=== PATIENT | female | born 2000 | race Caucasian/White ===

== ENCOUNTER 2020-07-02 15:24 | Inpatient (IN) | payer MEDICAID, SELFPAY ==
[2020-07-02 16:02] VITALS: BP 133/68; PULSE 88; RESP 16; TEMP 36.5; O2SAT 99; BMI 32.4
--- NOTE | 2020-07-02 17:11 | ED.DIZZY ---
HPI - Dizziness General Chief Complaint: Dizziness Stated Complaint: eye is blurry Time Seen by Provider: 07/02/20 17:53 Source: patient Mode of arrival: ambulatory Limitations: no limitations History of Present Illness HPI Narrative: 20-year-old female with no significant past medical history presents with 3 days of dizziness, double vision and loss of balance. she feels like the double vision is only in the left eye and was preceded by 2 months of left-sided ear pain. She does not have any family history of MS or brain malignancies, and denies chest pain and pressure, palpitations, shortness breath, abdominal pain, abdominal distention, Nausea, vomiting, diarrhea, constipation, dysuria, hematuria, fevers, chills, trauma, drug use or . MD elicited complaint: dizziness and difficulty walking ( loss of balance) Onset (ago): day(s) ( 3 days) Timing: gradual onset Severity: severe Description: sense of movement, off-balance and ongoing History of similar symptoms: No Relieving factors: nothing Associated symptoms: other Associated neuro symptoms: diplopia and vision changes Stroke scale total: 0 Related Data Allergies Allergy/AdvReac Type Severity Reaction Status Date / Time amoxicillin [AMOXICILLIN] Allergy Severe FACIAL AND Unverified 04/30/20 18:55 THROAT SWELLING Penicillins [PENICILLINS] Allergy Unknown SWELLING Unverified 04/30/20 18:55 Review of Systems Review of Systems: Constitutional: No Weight loss, No Fever, No Chills, No Night Sweats, No Fatigue, No Malaise ENT/Mouth: No Hearing loss, No Ear Pain, No Nasal Congestion, No Sinus Pain, No Hoarseness, No sore throat, No Rhinorrhea, No Swallowing Difficulty Eyes: No Eye Pain, No Swelling, No Redness, No Foreign Body, No Discharge, positive Vision Changes Cardiovascular: No Chest Pain, No SOB, No Dyspnea on Exertion, No Orthopnea, No Edema, No Palpitations Respiratory: No Cough, No Sputum, No Wheezing, No Smoke Exposure, No Dyspnea Gastrointestinal: No Nausea, No Vomiting, No Diarrhea, No Constipation, No abdominal Pain, No Hematochezia, No Melena Genitourinary: no irregular bleeding, No Dysuria, No Urinary Frequency, No Hematuria, No Urinary Incontinence, No Urgency, No Flank Pain, No Urinary Flow Changes, No Hesitancy Musculoskeletal: No joint pain, No Myalgias, No Joint Swelling Skin: No Skin Lesions, No rash Neuro: No Weakness, No Numbness, No Paresthesias, No Loss of Consciousness, No Dizziness, No Headache Psych: No Anxiety/Panic, No Depression, No SI/HI/AH/VH, No Social Issues Heme/Lymph: No Bruising, No Bleeding,No Lymphadenopathy Endocrine: No Polyuria, No Polydipsia, No Temperature Intolerance Yes all other systems are reviewed and are negative [facility] Past Medical History Attestation statement: The following information was validated with the patient. Medical History Anxiety Social History Social History Alcohol intake: current Alcohol intake frequency: holidays/special occasions only Smoking Status: Never smoker Advance Directives: No Advance Directives Information Provided: Yes Physical Exam Vital Signs: Vital Signs: Last Vital Signs Temp 98.1 F 07/02/20 20:00 Pulse 90 07/02/20 20:00 Resp 19 07/02/20 20:00 BP 136/72 07/02/20 20:00 Pulse Ox 99 07/02/20 20:00 Body Mass Index 32.4 Appearance: Alert. Oriented X3. No acute distress. Head: Normal external exam. Normocephalic. Atraumatic. No Zepeda signs noted. No raccoon eyes noted Eyes: PERRLA. EOMI. Conjunctiva and sclera normal. Eyelids normal. ENT: TM's Normal. Pharynx normal. Uvula midline. Moist mucous membranes. No trismus noted. No drooling noted. No muffled voice noted. Neck: Normal inspection. Neck supple. No adenopathy. Thyroid Normal. No meningeal signs. No neck mass noted. CVS: Normal heart rate and rhythm. Heart sound normal. No murmurs noted. Pulses equal to all extremities. Respiratory: No respiratory distress. Painless inspiration. Breath sounds normal. No wheezes/rales/rhonchi noted. Chest nontender. No accessory muscle usage noted or decreased air movement noted. Abdomen: Soft and nontender. Bowel sounds normal in all 4 quadrants. No distention noted. No organomegaly noted. No visible injury noted. Back: No CVA tenderness. Full range of motion noted. Skin: Skin warm and dry. Normal skin color. Normal skin turgor. No rashes/lesions/lacerations noted. Extremities: No lower extremity edema. Extremities exhibit normal range of motion. Extremities nontender. Neuro: cranial nerves 2-12 intact, no focal neural deficits, strength 5/5 to all extremities, No motor deficit. No sensory deficit. Reflexes normal. Course Course Course Narrative: 20-year-old female presents with 3 days of dizziness, double vision, and loss of balance. after discussing the case with Dr. Reed, based on her physical exam and presenting symptoms We will order CT scan and MRI of the head to rule out MS, possible 6th nerve palsy, CBC, Chem 7, troponin, EKG and urinalysis. Extraocular movements are within normal limits, no pain on eye movement. She does have double vision with both eyes open to the left lateral rectus the 3 o'clock position and inferior rectus and superior oblique position the 6 o'clock position, and double vision when staring directly at fingers when fingers are at eye level. All other exams are normal, she does not have double vision when the left eye is closed, does not have double vision when the right eye is closed. Funduscopic exam is normal. tympanic membranes are bilaterally intact small amount of cerumen buildup to the left external canal without indication of blockage. Cerebellar exam [id number] negative, negative Romberg. At 8:13 p.m. CBC, Chem 7, urinalysis, urine , and tox screen are all negative for acute findings or abnormal values. CT scan of the head is negative for acute findings. at 10:11 p.m. MRI results showed demyelinating disease. Discussed findings with Dr. Reed. he recommends that I discussed this case with Neurology. Call out to Neurology on-call at this time. Discussion with hospitalist at 10:39 p.m., plan of care is to admit with neurology follow-up in the morning. Patient verbalized understanding of and agrees to plan of care. Detailed discussion with patient regarding MRI findings, and plan for admission, this was also discussed with patient's mother. Emotional support provided to both patient and parent. Consultations Consultation #1: Dr Armenta Time: 22:29 Consultation #2: byron hogue Time: 22:39 MDM - Dizziness MDM Narrative Medical decision making narrative: multiple sclerosis, 6th nerve palsy Differential Diagnosis Differential diagnosis: Likely cerebrovascular accident, acute vestibular neuronitis and transient cerebral ischemia Medical Records Attestation: I reviewed the patient's medical records. Lab Data Attestation: I reviewed the patient's lab results. Result diagrams: 07/02/20 17:37 07/02/20 17:37 Labs: Lab Results 07/02/20 07/02/20 07/02/20 Range/Units 17:32 17:37 17:37 WBC 8.5 (4.8-10.8) X10*3/uL RBC 4.22 (4.20-5.50) X10*6/uL Hgb 13.2 (12.0-16.0) g/dl Hct 38.7 (37-47) % MCV 91.7 (80-98) fL MCH 31.3 (27.0-33.0) pg MCHC 34.1 (31.0-35.0) g/dl RDW 12.3 (11.0-16.0) % Plt Count 279 (160-400) X10*3/uL MPV 9.6 (9.4-12.3) fL Immature Gran % (Auto) 0.1 (0.0-0.4) % Neut % (Auto) 74.3 H (45-73) % Lymph % (Auto) 20.3 (20-40) % [place] % (Auto) 4.3 (2-11) % Eos % (Auto) 0.4 (0-4) % Baso % (Auto) 0.6 (0-2) % Lymph # (Auto) 1.7 (1.2-4.9) X10*3/uL [place] # (Auto) 0.4 (0.1-1.2) X10*3/uL Eos # (Auto) 0.0 (0.0-0.4) X10*3/uL Baso # (Auto) 0.1 (0.0-0.2) X10*3/uL Abs Immat Gran (auto) 0.01 (0.00-0.03) X10*3/uL Absolute Neuts (auto) 6.3 (2.0-8.3) X10*3/uL Absolute Nucleated RBC 0.000 (0.0-0.012) X10*3/uL Nucleated RBC % (auto) 0.0 (0.0-0.2) /100WBC PT 12.2 (10.8-13.0) SEC INR 1.0 (0.9-1.1) APTT 34.9 (24.1-38.0) SEC Sodium (135-145) mmol/L Potassium (3.3-5.1) mmol/l Chloride (96-108) mmol/L Carbon Dioxide (22-29) mmol/L Anion Gap (12-20) BUN (9-16) mg/dL Creatinine (0.5-1.4) mg/dL Estim Creat Clear Calc Estimated GFR POC Glucose 93 (60-115) mg/dL Random Glucose (60-115) mg/dL Calcium (8.4-10.2) mg/dL Magnesium (1.6-2.6) mg/dL Urine Color Urine Appearance Urine pH (5.0-8.0) Ur Specific [place] (1.005-1.025) Urine Protein (NEG-TRACE) MG/DL Urine Glucose (UA) (NEG) MG/DL Urine Ketones (NEG) MG/DL Urine Blood (NEG) Urine Nitrite (NEG) Ur Leukocyte Esterase (NEG) Urine Test (NEGATIVE) Urine Opiates Screen (Not Detect) Ur Barbiturates Screen (Not Detect) Ur Phencyclidine Scrn (Not Detect) Ur Amphetamines Screen (Not Detect) U Benzodiazepines Scrn (Not Detect) Urine Cocaine Screen (Not Detect) U Marijuana (THC) Screen (Not Detect) COVID-19 (MARANDA) (Negative) COVID-19 Clin Com 07/02/20 07/02/20 07/02/20 Range/Units 17:37 17:37 17:37 WBC (4.8-10.8) X10*3/uL RBC (4.20-5.50) X10*6/uL Hgb (12.0-16.0) g/dl Hct (37-47) % MCV (80-98) fL MCH (27.0-33.0) pg MCHC (31.0-35.0) g/dl RDW (11.0-16.0) % Plt Count (160-400) X10*3/uL MPV (9.4-12.3) fL Immature Gran % (Auto) (0.0-0.4) % Neut % (Auto) (45-73) % Lymph % (Auto) (20-40) % [place] % (Auto) (2-11) % Eos % (Auto) (0-4) % Baso % (Auto) (0-2) % Lymph # (Auto) (1.2-4.9) X10*3/uL [place] # (Auto) (0.1-1.2) X10*3/uL Eos # (Auto) (0.0-0.4) X10*3/uL Baso # (Auto) (0.0-0.2) X10*3/uL Abs Immat Gran (auto) (0.00-0.03) X10*3/uL Absolute Neuts (auto) (2.0-8.3) X10*3/uL Absolute Nucleated RBC (0.0-0.012) X10*3/uL Nucleated RBC % (auto) (0.0-0.2) /100WBC PT (10.8-13.0) SEC INR (0.9-1.1) APTT (24.1-38.0) SEC Sodium 139 (135-145) mmol/L Potassium 4.0 (3.3-5.1) mmol/l Chloride 103 (96-108) mmol/L Carbon Dioxide 24 (22-29) mmol/L Anion Gap 16 (12-20) BUN 12 (9-16) mg/dL Creatinine 0.82 (0.5-1.4) mg/dL Estim Creat Clear Calc 109.7 Estimated GFR > 60 POC Glucose (60-115) mg/dL Random Glucose 91 (60-115) mg/dL Calcium 9.3 (8.4-10.2) mg/dL Magnesium 2.0 (1.6-2.6) mg/dL Urine Color YELLOW Urine Appearance CLEAR Urine pH 6.0 (5.0-8.0) Ur Specific [place] 1.025 (1.005-1.025) Urine Protein NEG (NEG-TRACE) MG/DL Urine Glucose (UA) NEG (NEG) MG/DL Urine Ketones NEG (NEG) MG/DL Urine Blood NEG (NEG) Urine Nitrite NEG (NEG) Ur Leukocyte Esterase NEG (NEG) Urine Test NEGATIVE (NEGATIVE) Urine Opiates Screen Not Detected (Not Detect) Ur Barbiturates Screen Not Detected (Not Detect) Ur Phencyclidine Scrn Not Detected (Not Detect) Ur Amphetamines Screen Not Detected (Not Detect) U Benzodiazepines Scrn Not Detected (Not Detect) Urine Cocaine Screen Not Detected (Not Detect) U Marijuana (THC) Screen Not Detected (Not Detect) COVID-19 (MARANDA) (Negative) COVID-19 Clin Com 07/02/20 Range/Units 23:04 WBC (4.8-10.8) X10*3/uL RBC (4.20-5.50) X10*6/uL Hgb (12.0-16.0) g/dl Hct (37-47) % MCV (80-98) fL MCH (27.0-33.0) pg MCHC (31.0-35.0) g/dl RDW (11.0-16.0) % Plt Count (160-400) X10*3/uL MPV (9.4-12.3) fL Immature Gran % (Auto) (0.0-0.4) % Neut % (Auto) (45-73) % Lymph % (Auto) (20-40) % [place] % (Auto) (2-11) % Eos % (Auto) (0-4) % Baso % (Auto) (0-2) % Lymph # (Auto) (1.2-4.9) X10*3/uL [place] # (Auto) (0.1-1.2) X10*3/uL Eos # (Auto) (0.0-0.4) X10*3/uL Baso # (Auto) (0.0-0.2) X10*3/uL Abs Immat Gran (auto) (0.00-0.03) X10*3/uL Absolute Neuts (auto) (2.0-8.3) X10*3/uL Absolute Nucleated RBC (0.0-0.012) X10*3/uL Nucleated RBC % (auto) (0.0-0.2) /100WBC PT (10.8-13.0) SEC INR (0.9-1.1) APTT (24.1-38.0) SEC Sodium (135-145) mmol/L Potassium (3.3-5.1) mmol/l Chloride (96-108) mmol/L Carbon Dioxide (22-29) mmol/L Anion Gap (12-20) BUN (9-16) mg/dL Creatinine (0.5-1.4) mg/dL Estim Creat Clear Calc Estimated GFR POC Glucose (60-115) mg/dL Random Glucose (60-115) mg/dL Calcium (8.4-10.2) mg/dL Magnesium (1.6-2.6) mg/dL Urine Color Urine Appearance Urine pH (5.0-8.0) Ur Specific [place] (1.005-1.025) Urine Protein (NEG-TRACE) MG/DL Urine Glucose (UA) (NEG) MG/DL Urine Ketones (NEG) MG/DL Urine Blood (NEG) Urine Nitrite (NEG) Ur Leukocyte Esterase (NEG) Urine Test (NEGATIVE) Urine Opiates Screen (Not Detect) Ur Barbiturates Screen (Not Detect) Ur Phencyclidine Scrn (Not Detect) Ur Amphetamines Screen (Not Detect) U Benzodiazepines Scrn (Not Detect) Urine Cocaine Screen (Not Detect) U Marijuana (THC) Screen (Not Detect) COVID-19 (MARANDA) Negative (Negative) COVID-19 Clin Com See Note Imaging Data CT scan - head: Attestation: I personally reviewed and interpreted this imaging study as follows: Radiologist's impression: EXAMINATION: CT HEAD WITH CONTRAST CLINICAL INFORMATION: Double vision. COMPARISON: January 05, 2020. TECHNIQUE: Contiguous helical images of the brain were obtained following the administration of IV contrast. Multiplanar reconstructions were performed. CONTRAST: 85 cc of Omnipaque 350 were administered without incident. FINDINGS: There are no pathologic extra-axial fluid collections. The lateral, third, fourth ventricles are nondilated and concordant with the appearance of the sulci. There is no evidence for acute intraparenchymal hemorrhage or infarct. There is neither mass nor mass effect. No enhancing lesions are identified. The visualized vasculature is unremarkable. There is no shift of midline structures. The paranasal sinuses and mastoid air cells are clear. There are no osseous lesions. CT/CT head/brain w con IMPRESSION: No evidence for acute intracranial injury. Automated exposure control (Care Dose) Adjustment of the mA and/or kv according to patient size (this includes techniques or standardized protocols for targeted exams where dose is matched to indication / reason for exam; i.e. extremities or head). MRI - head: Attestation: I personally reviewed and interpreted this imaging study as follows: Radiologist's impression: MR BRAIN WITHOUT AND WITH CONTRAST CLINICAL INFORMATION: Double vision. COMPARISON: Head CT performed earlier the same day. TECHNIQUE: Multiplanar, multisequence MRI of the brain was obtained before and after the intravenous administration of 8.5 mL Gadavist. FINDINGS: Multiple T2 signal hyperintense lesions within the supratentorial periventricular white matter bilaterally and likely the dorsal left dorina with the pattern most suggestive of the sequela of demyelinating disease. A small focus of enhancement within the right peritrigonal white matter on image 12 of series 12 suspicious for a small focus of active demyelination. There is no hydrocephalus, extra-axial surface collection, or herniation. The major flow voids at the skull base are preserved. There is no acute infarct on diffusion-weighted imaging. There is no intracranial hemorrhage on the gradient recalled echo acquisition. The midline structures are normal. The cerebellar tonsils are normally positioned. The cerebellum and brainstem are normal. The craniocervical junction is normal. Osseous marrow signal intensity is homogenous. The visualized soft tissues are unremarkable. MR/MR head/brain wo/w con IMPRESSION: Multiple T2 signal hyperintense lesions within the supratentorial periventricular white matter bilaterally and likely the dorsal left dorina with the pattern most suggestive of the sequela of demyelinating disease. A small focus of enhancement within the right peritrigonal white matter on image 12 of series 12 is suspicious for a small focus of active demyelination. ECG Data Attestation: I personally reviewed and interpreted this ECG as follows: ECG interpretation date: 07/02/20 ECG interpretation time: 17:45 Interpretation: Vent. Rate : 078 BPM Atrial Rate : 078 BPM P-R Int : 138 ms QRS Dur : 074 ms QT Int : 380 ms P-R-T Axes : 056 045 026 degrees QTc Int : 433 ms Normal sinus rhythm with sinus arrhythmia Normal ECG When compared with ECG of 05-JAN-2020 14:35, No significant change was found Critical Care Time Critical Care Time Critical Care Time: Yes Total Critical Care Time: 45 Attestation: I have personally provided critical care time exclusive of time spent on separately billable procedures. Time includes review of laboratory data, radiology results, discussion with consultants, and monitoring for potential decompensation. Interventions were performed as documented. Discharge Plan Discharge Clinical Impression: 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 Patient Disposition: Admitted As Inpatient Interventions: Admission Worksheet (ED) Last Done: 07/03/20 01:08
--- NOTE | 2020-07-02 17:21 | CT_ITS ---
EXAMINATION: CT HEAD WITH CONTRAST CLINICAL INFORMATION: Double vision. COMPARISON: January 05, 2020. TECHNIQUE: Contiguous helical images of the brain were obtained following the administration of IV contrast. Multiplanar reconstructions were performed. CONTRAST: 85 cc of Omnipaque 350 were administered without incident. FINDINGS: There are no pathologic extra-axial fluid collections. The lateral, third, fourth ventricles are nondilated and concordant with the appearance of the sulci. There is no evidence for acute intraparenchymal hemorrhage or infarct. There is neither mass nor mass effect. No enhancing lesions are identified. The visualized vasculature is unremarkable. There is no shift of midline structures. The paranasal sinuses and mastoid air cells are clear. There are no osseous lesions. CT/CT head/brain w con IMPRESSION: No evidence for acute intracranial injury. Automated exposure control (Care Dose) Adjustment of the mA and/or kv according to patient size (this includes techniques or standardized protocols for targeted exams where dose is matched to indication / reason for exam; i.e. extremities or head).
[2020-07-02 17:26] VITALS: BP 128/70; PULSE 68; RESP 19; TEMP 36.7; O2SAT 100
--- NOTE | 2020-07-02 17:30 | ECG_ITS ---
Test Reason : BASELINE Blood Pressure : / mmHG Vent. Rate : 078 BPM Atrial Rate : 078 BPM P-R Int : 138 ms QRS Dur : 074 ms QT Int : 380 ms P-R-T Axes : 056 045 026 degrees QTc Int : 433 ms Normal sinus rhythm with sinus arrhythmia Normal ECG When compared with ECG of 05-JAN-2020 14:35, No significant change was found Referred By: Winnie Cuellar Electronically Signed By:HARMAN OLEA MD
[2020-07-02 17:43] LABS: Glucose, Whole Blood 93 mg/dL (60-115)
[2020-07-02 17:44] LABS: MANUAL DIFF FLAG NO
[2020-07-02 17:45] LABS: Basophils Absolute Auto 0.1 X10*3/uL (0.0-0.2); Basophils Percent Auto 0.6 % (0-2); Eosinophils Percent Auto 0.4 % (0-4); Hematocrit 38.7 % (37-47); Hemoglobin 13.2 g/dl (12.0-16.0); Imm Gran Abs Auto 0.01 X10*3/uL (0.00-0.03); Imm Gran Pct Auto 0.1 % (0.0-0.4); Lymphocytes Absolute Auto 1.7 X10*3/uL (1.2-4.9); Lymphocytes Percent Auto 20.3 % (20-40); Mean Corpuscular HGB Conc 34.1 g/dl (31.0-35.0); Mean Corpuscular Hemoglobin 31.3 pg (27.0-33.0); Mean Corpuscular Volume 91.7 fL (80-98); Mean Platelet Volume 9.6 fL (9.4-12.3); Monocytes Absolute Auto 0.4 X10*3/uL (0.1-1.2); Monocytes Percent Auto 4.3 % (2-11); Neutrophils Absolute Auto 6.3 X10*3/uL (2.0-8.3); Neutrophils Percent Auto 74.3 % (45-73); Platelet Count 279 X10*3/uL (160-400); Red Blood Count 4.22 X10*6/uL (4.20-5.50); Red Cell Distribution Width 12.3 % (11.0-16.0); White Blood Count 8.5 X10*3/uL (4.8-10.8)
[2020-07-02 17:56] LABS: Glucose Urine UA NEG (NEG); Leukocyte Esterase Urine NEG (NEG); Nitrite Urine NEG (NEG); Specific Gravity - Urine 1.025 (1.005-1.025); Urine Blood NEG (NEG); Urine Ketones NEG (NEG); Urine Protein NEG (NEG-TRACE)
[2020-07-02 17:58] LABS: Appearance Urine CLEAR; Color Urine YELLOW; UPreg QC Valid YES; Urine Pregnancy NEGATIVE (NEGATIVE)
[2020-07-02 18:04] LABS: Anion Gap 16 (12-20); Blood Urea Nitrogen 12 mg/dL (9-16); Calcium 9.3 mg/dL (8.4-10.2); Carbon Dioxide 24 mmol/L (22-29); Chloride 103 mmol/L (96-108); Creatinine Clr Calc Pharmacy 109.7; Estimated Glomerular Filt Rate > 60; Glucose Random 91 mg/dL (60-115); Sodium 139 mmol/L (135-145)
[2020-07-02 18:07] LABS: Prothrombin Time 12.2 SEC (10.8-13.0)
[2020-07-02 18:09] LABS: Partial Thromboplastin Time 34.9 SEC (24.1-38.0)
[2020-07-02 18:10] LABS: Amphetamine Screen Urine Not Detected (Not Detect); Barbiturates, Urine Not Detected (Not Detect); Benzodiazepines Screen Urine Not Detected (Not Detect); Cannabinoid Screen Urine Not Detected (Not Detect); Cocaine Screen Urine Not Detected (Not Detect); Opiate Screen Urine Not Detected (Not Detect); Phencyclidine Screen Urine Not Detected (Not Detect)
[2020-07-02] MEDS: iohexoL 350 MG/ML 100 ML INFUS..BTL IV (18:37)
--- NOTE | 2020-07-02 19:47 | MR_ITS ---
MR BRAIN WITHOUT AND WITH CONTRAST CLINICAL INFORMATION: Double vision. COMPARISON: Head CT performed earlier the same day. TECHNIQUE: Multiplanar, multisequence MRI of the brain was obtained before and after the intravenous administration of 8.5 mL Gadavist. FINDINGS: Multiple T2 signal hyperintense lesions within the supratentorial periventricular white matter bilaterally and likely the dorsal left dorina with the pattern most suggestive of the sequela of demyelinating disease. A small focus of enhancement within the right peritrigonal white matter on image 12 of series 12 suspicious for a small focus of active demyelination. There is no hydrocephalus, extra-axial surface collection, or herniation. The major flow voids at the skull base are preserved. There is no acute infarct on diffusion-weighted imaging. There is no intracranial hemorrhage on the gradient recalled echo acquisition. The midline structures are normal. The cerebellar tonsils are normally positioned. The cerebellum and brainstem are normal. The craniocervical junction is normal. Osseous marrow signal intensity is homogenous. The visualized soft tissues are unremarkable. MR/MR head/brain wo/w con IMPRESSION: Multiple T2 signal hyperintense lesions within the supratentorial periventricular white matter bilaterally and likely the dorsal left dorina with the pattern most suggestive of the sequela of demyelinating disease. A small focus of enhancement within the right peritrigonal white matter on image 12 of series 12 is suspicious for a small focus of active demyelination.
[2020-07-02 20:00] VITALS: BP 136/72; PULSE 90; RESP 19; TEMP 36.7; O2SAT 99
[2020-07-02 23:30] LABS: COVID-19 Test Negative (Negative)
[2020-07-03] VITALS (7 sets, daily range): BP systolic 106–137; BP diastolic 56–77; PULSE 83–100; RESP 18–19; TEMP 36–36.7; O2SAT 97–100; BMI 32.4
--- NOTE | 2020-07-03 00:43 | PM.IMHP ---
History of Present Illness Date of Service: 07/02/20 Chief Complaint: dizziness 20 y/o female with no pertinent PMHX who presented from home due to persistent dizziness per 2 days. Per history provided by the patient, since yesterday started with symptoms of malaise feeling dizzy and unable to see properly. Today went to see her PCP and was sent here for further evaluation. On presentation to the ED vitals were stable, bloodwork unremarkable, MRI positive several hyperintense lesions in the supretentorial periventricular area, left dorina and in the right side of peritrigonal area suggestive for demyelinating disease. Neurologist consulted per ED who recommended start with solumedrol 1g IV for new onset MS. Patient reports that about a week ago presented to the ED with symptoms of partial face numbness and numbness of the fingers of one arm but was told back then that it was anxiety as symptoms resolved. Patient was seen and examined at the bedside, laying down in bed in no acute distress. ROS as above otherwise negative. Physical exam positive for bilateral horizontal nistagmus. PMHX: none PSx: none Toxic habits: No hx of alcohol abuse, smoking or IVDA Review of Systems Eyes: Eyes: Reports diplopia ENT: Reports dizziness and Reports disequilibrium Neurologic: Reports dizziness and Reports disequilibrium PMFSH Medical History Anxiety Functional capacity: independent ambulation Family history: reviewed and not pertinent Social History Alcohol intake: current Alcohol intake frequency: holidays/special occasions only Smoking Status: Never smoker Advance Directives: No Advance Directives Information Provided: Yes Meds Allergies Allergy/AdvReac Type Severity Reaction Status Date / Time amoxicillin [AMOXICILLIN] Allergy Severe FACIAL AND Unverified 04/30/20 18:55 THROAT SWELLING Penicillins [PENICILLINS] Allergy Unknown SWELLING Unverified 04/30/20 18:55 Physical Exam Vital Signs and Narrative: Vital Signs: Last Vital Signs Temp 98.1 F 07/02/20 17:26 Pulse 68 07/02/20 17:26 Resp 19 07/02/20 17:26 BP 128/70 07/02/20 17:26 Pulse Ox 100 07/02/20 17:26 Body Mass Index 32.4 Const: General: cooperative, comfortable and no acute distress Orientation/consciousness: oriented to person, oriented to place and oriented to time HENMT: Head: Yes normal to inspection Eyes: Conjunctivae: conjunctivae normal Sclerae: sclerae normal Pupils: Equal, round and reactive pupils present EOM: Nystagmus present Neck: Yes normal visual inspection Chest: Chest palpation & inspection: normal inspection of the chest Resp: Effort & Inspection: normal respiratory effort Cardio: Jugular venous distension: no JVD Rate: regular rate Rhythm: regular rhythm Heart sounds: S1 normal heart sound present and S2 normal heart sound present GI: Inspection: Yes normal to inspection Skin: General skin exam: no rashes or lesions noted Neuro: General: oriented to person, oriented to place and oriented to time Cranial nerves: Yes Equal, round and reactive pupils present and Yes Nystagmus present Cognition (Neuro): normal cognition Motor exam (neuro): 5/5 motor strength present throughout Results Labs CBC and Chem 7: 07/02/20 17:37 07/02/20 17:37 Labs: Laboratory Results - last 24 hr 07/02/20 07/02/20 07/02/20 17:32 17:37 17:37 MCV 91.7 MCH 31.3 MCHC 34.1 RDW 12.3 Plt Count 279 MPV 9.6 Immature Gran % (Auto) 0.1 Neut % (Auto) 74.3 H Lymph % (Auto) 20.3 [place] % (Auto) 4.3 Eos % (Auto) 0.4 Baso % (Auto) 0.6 Lymph # (Auto) 1.7 [place] # (Auto) 0.4 Eos # (Auto) 0.0 Baso # (Auto) 0.1 Abs Immat Gran (auto) 0.01 Absolute Neuts (auto) 6.3 Absolute Nucleated RBC 0.000 Nucleated RBC % (auto) 0.0 PT 12.2 INR 1.0 APTT 34.9 Anion Gap Estim Creat Clear Calc Estimated GFR POC Glucose 93 Random Glucose Calcium Magnesium Urine Color Urine Appearance Urine pH Ur Specific [place] Urine Protein Urine Glucose (UA) Urine Ketones Urine Blood Urine Nitrite Ur Leukocyte Esterase Urine Test Urine Opiates Screen Ur Barbiturates Screen Ur Phencyclidine Scrn Ur Amphetamines Screen U Benzodiazepines Scrn Urine Cocaine Screen U Marijuana (THC) Screen COVID-19 (MARANDA) COVID-19 Clin Com 07/02/20 07/02/20 07/02/20 17:37 17:37 17:37 MCV MCH MCHC RDW Plt Count MPV Immature Gran % (Auto) Neut % (Auto) Lymph % (Auto) [place] % (Auto) Eos % (Auto) Baso % (Auto) Lymph # (Auto) [place] # (Auto) Eos # (Auto) Baso # (Auto) Abs Immat Gran (auto) Absolute Neuts (auto) Absolute Nucleated RBC Nucleated RBC % (auto) PT INR APTT Anion Gap 16 Estim Creat Clear Calc 109.7 Estimated GFR > 60 POC Glucose Random Glucose 91 Calcium 9.3 Magnesium 2.0 Urine Color YELLOW Urine Appearance CLEAR Urine pH 6.0 Ur Specific [place] 1.025 Urine Protein NEG Urine Glucose (UA) NEG Urine Ketones NEG Urine Blood NEG Urine Nitrite NEG Ur Leukocyte Esterase NEG Urine Test NEGATIVE Urine Opiates Screen Not Detected Ur Barbiturates Screen Not Detected Ur Phencyclidine Scrn Not Detected Ur Amphetamines Screen Not Detected U Benzodiazepines Scrn Not Detected Urine Cocaine Screen Not Detected U Marijuana (THC) Screen Not Detected COVID-19 (MARANDA) COVID-19 [email or web address] Com 07/02/20 23:04 MCV MCH MCHC RDW Plt Count MPV Immature Gran % (Auto) Neut % (Auto) Lymph % (Auto) [place] % (Auto) Eos % (Auto) Baso % (Auto) Lymph # (Auto) [place] # (Auto) Eos # (Auto) Baso # (Auto) Abs Immat Gran (auto) Absolute Neuts (auto) Absolute Nucleated RBC Nucleated RBC % (auto) PT INR APTT Anion Gap Estim Creat Clear Calc Estimated GFR POC Glucose Random Glucose Calcium Magnesium Urine Color Urine Appearance Urine pH Ur Specific [place] Urine Protein Urine Glucose (UA) Urine Ketones Urine Blood Urine Nitrite Ur Leukocyte Esterase Urine Test Urine Opiates Screen Ur Barbiturates Screen Ur Phencyclidine Scrn Ur Amphetamines Screen U Benzodiazepines Scrn Urine Cocaine Screen U Marijuana (THC) Screen COVID-19 (MARANDA) Negative COVID-19 [email or web address] Com See Note Imaging Radiologist's Impressions: Impressions Head CT 07/02/20 17:21 IMPRESSION: No evidence for acute intracranial injury. Automated exposure control (Care Dose) Adjustment of the mA and/or kv according to patient size (this includes techniques or standardized protocols for targeted exams where dose is matched to indication / reason for exam; i.e. extremities or head). Brain MRI 07/02/20 19:47 IMPRESSION: Multiple T2 signal hyperintense lesions within the supratentorial periventricular white matter bilaterally and likely the dorsal left dorina with the pattern most suggestive of the sequela of demyelinating disease. A small focus of enhancement within the right peritrigonal white matter on image 12 of series 12 is suspicious for a small focus of active demyelination. Assessment and Plan (1) Multiple sclerosis: Status: Acute multiple lesions identified in time and space on MRI Continue with 1g IV solumedrol for a total duration of 5 [facility] consult in the am
[2020-07-03] MEDS: Heparin Sodium,Porcine 5,000 UNIT/ML VIAL 5000 UNIT SUBCUT ×3 (02:45→18:07)
[2020-07-03] MEDS: LORazepam 2 MG/ML VIAL 0.5 MG IVPUSH (02:46)
[2020-07-03 06:15] LABS: Hematocrit 37.1 % (37-47); Hemoglobin 12.7 g/dl (12.0-16.0); Imm Gran Abs Auto 0.03 X10*3/uL (0.00-0.03); Imm Gran Pct Auto 0.3 % (0.0-0.4); Lymphocytes Absolute Auto 0.6 X10*3/uL (1.2-4.9); Lymphocytes Percent Auto 6.3 % (20-40); MANUAL DIFF FLAG SCAN; Mean Corpuscular HGB Conc 34.2 g/dl (31.0-35.0); Mean Corpuscular Hemoglobin 31.4 pg (27.0-33.0); Mean Corpuscular Volume 91.6 fL (80-98); Mean Platelet Volume 9.9 fL (9.4-12.3); Monocytes Percent Auto 0.2 % (2-11); Neutrophils Absolute Auto 8.6 X10*3/uL (2.0-8.3); Neutrophils Percent Auto 93.2 % (45-73); Platelet Count 271 X10*3/uL (160-400); Red Blood Count 4.05 X10*6/uL (4.20-5.50); Red Cell Distribution Width 12.1 % (11.0-16.0); SCAN SMEAR FLAG 1; White Blood Count 9.2 X10*3/uL (4.8-10.8)
[2020-07-03 06:41] LABS: Anion Gap 14 (12-20); Blood Urea Nitrogen 14 mg/dL (9-16); Calcium 9.1 mg/dL (8.4-10.2); Carbon Dioxide 23 mmol/L (22-29); Chloride 105 mmol/L (96-108); Creatinine Clr Calc Pharmacy 96.8; Estimated Glomerular Filt Rate > 60; Glucose Random 229 mg/dL (60-115); Potassium 4.6 mmol/l (3.3-5.1); Sodium 137 mmol/L (135-145)
[2020-07-03 07:23] LABS: SLIDE REVIEW VERIFIED
--- NOTE | 2020-07-03 09:10 | MHC.CM.PN ---
CM met with Patient. Patient lives in an apartment with her Fiance and she is functionally independent. Patient's goal is to return home and CM has initiated and will follow for dc planning.
[2020-07-03] MEDS: Ibuprofen 600 MG TABLET PO ×2 (09:49→18:05)
[2020-07-03] MEDS: 0.9 % Sodium Chloride Flush 3 ML SYRINGE IVFLUSH ×3 (09:50→23:04)
--- NOTE | 2020-07-03 14:56 | P.CNNE_ITS ---
History of Present Illness Data of Consult Service Date: 07/03/20 Primary Care Provider: Antelmo Wright MD HPI Reason for consult: Fatigue, double vision and unsteady gait for the last one week This is a generally healthy 20-year-old woman who had an episode of left facial numbness for a day about a month ago which resolved and had another similar episode for a couple of days about 10 days ago and came to the ER and was discharged with a diagnosis of anxiety as she has had problems with anxiety and dizziness in hyperventilation in the past. She now presents with feeling fatigued for one week along with unsteady gait and diplopia which is binocular. She feels her vision is blurred. She has no headache. In the emergency room she had an MRI of the brain with and without gadolinium which showed multiple periventricular as well as corpus callosum lesions and some deep white matter and subcortical smaller lesions consistent with multiple sclerosis in a single her right small peritrigonal area of enhancement suggesting a relatively recent plaque. There is also questionable area of abnormality in the dorina which might account for her balance and diplopia. She has no significant previous neurological symptoms prior to a month ago. She has had multiple Lyme tests in the last 6 months which have been negative. Review of Systems Eyes: Eyes: Reports no additional eye complaints ENT: Reports Normal hearing present, Reports dizziness and Reports disequilibrium Cardiovascular: Cardiovascular: Reports no additional cardiovascular complaints Respiratory: Respiratory: Reports no additional respiratory complaints Gastrointestinal: Gastrointestinal: Reports no additional gastrointestinal complaints Musculoskeletal: Musculoskeletal: Reports no additional musculoskeletal complaints Integumentary/Breasts: Skin/Breast: Reports system reviewed and no additional complaints, except as docu Neurologic: Reports Normal hearing present, Reports dizziness and Reports disequilibrium Psychiatric: Psychiatric: Reports as per HPI Endocrine: Endocrine: Reports no additional endocrine complaints Hematologic/Lymphatic: Hematologic/Lymphatic: Reports no additional hematologic/lymphatic complaints Allergic/Immunologic: Allergic/Immunologic: Reports no additional al lergic/immunologic complaints [facility] Past Medical History Medical History (Updated 07/03/20 @ 15:04 by Abigail Trimble MD) Anxiety Fracture of right lower leg Functional capacity: independent ambulation Family History Family history: reviewed and not pertinent Social History Social History Household Members: Significant Other Housing: Apartment Do you presently have visiting nurse or other home services: No Alcohol intake: current Alcohol intake frequency: holidays/special occasions only Smoking Status: Never smoker Use of substances other than those prescribed or required for medical reasons: No Have you been hit, kicked, punched, or otherwise hurt by someone within the past year? If so, by whom?: No Do you feel safe in your current relationship?: Yes Is there a partner from a previous relationship who is making you feel unsafe now?: No Are you made to feel afraid or neglected: No Advance Directives: No Advance Directives Information Provided: Yes Do you have thoughts of harming others: None Do you have a plan to hurt others: No Plan Recently lost weight without trying: No service: No Current occupational status: employed Meds Allergies Allergy/AdvReac Type Severity Reaction Status Date / Time amoxicillin [AMOXICILLIN] Allergy Severe FACIAL AND Verified 07/03/20 02:59 THROAT SWELLING Penicillins [PENICILLINS] Allergy Unknown SWELLING Verified 07/03/20 02:59 Home Medications Medication Instructions Recorded Confirmed Type No Known Home Meds 07/03/20 07/03/20 History Physical Exam Vital Signs: Vital Signs: Last Vital Signs Temp 96.8 F 07/03/20 11:27 Pulse 96 07/03/20 11:27 Resp 19 07/03/20 11:27 BP 114/77 07/03/20 11:27 Pulse Ox 100 07/03/20 11:27 Body Mass Index 32.4 Const: General: cooperative, comfortable, no acute distress, well developed, alert and awake Nutritional Appearance: well nourished Orientation/consciousness: oriented to person, oriented to place and oriented to time Limitations: no limitations HENMT: Head: Yes normal to inspection, Yes normocephalic and Yes atraumatic Ears: hearing grossly normal bilaterally General nose exam: Normal external nose present Face and sinus: Yes normal facial exam Mouth: Normal oral and palatal mucosa present Eyes: Other: She has slight disconjugate gaze on extreme lateral gaze bilaterally with diplopia which is binocular but no internuclear ophthalmoplegia General: appearance normal, both eyes and all related structures Visual Mccarthy: normal visual mccarthy by confrontation Alignment and Position: alignment normal (Slight disconjugate gaze on extreme right or leg left gaze with diplopia) Periorbital: periorbital findings normal Eyelids: Yes eyelids normal Conjunctivae: conjunctivae normal Sclerae: sclerae normal Corneas: corneas normal Pupils: Equal, round and reactive pupils present and Pupil accommodation reflex normal EOM: EOMs intact bilaterally Direct Ophthalmoscopy: normal light reflex Neck: Neck: Yes normal visual inspection, Yes full ROM and Yes no meningeal signs Thyroid: Thyroid normal Carotids: normal carotid upstroke and bounding pulses Chest: Chest palpation & inspection: normal inspection of the chest Resp: Effort & Inspection: normal respiratory effort Auscultation: clear to auscultation bilaterally Cardio: Rate: regular rate Rhythm: regular rhythm Heart sounds: S1 normal heart sound present and S2 normal heart sound present Peripheral pulses: Peripheral pulses 2+ throughout GI: Inspection: Yes normal to inspection Percussion: Yes normal to percussion Auscultation: normal bowel sounds Rectal Exam - Female: deferred Back/Spine/Pelvis: Cervical Spine: normal cervical lordosis and cervical ROM normal Thoracic/Lumbar Spine: thoracic and lumbar spine normal to inspection Skin: General skin exam: no rashes or lesions noted Neuro: Other: Eye movement abnormality on extreme lateral gaze as described above. No nystagmus at this time and no evidence of internuclear ophthalmoplegia. Mild weakness of the left upper extremity in the deltoid triceps graded at 5 minus/5 without any drift. Bilateral hyperreflexia right greater than left with an equivocal extensor plantar response on the right why that on the left is flexor General: oriented to person, oriented to place, oriented to time, gait normal, tone normal, moves all extremities, Normal light touch and pain sensation, no meningeal signs, no focal motor deficits, CN's II-XI intact bilaterally, normal sensation to monofilament and deep tendon reflexes 2+ bilaterally Cranial nerves: Yes CN's II-XII intact bilaterally, Yes Equal, round and reactive pupils present, Yes Bilaterally intact EOM present, Yes Nystagmus not present, Yes Normal facial strength present, Yes Midline tongue p resent, Yes Normal gag reflex present, Yes Symmetric palate elevation present, Yes Normal hearing present and Yes Ability to bilaterally rotate head present Cognition (Neuro): normal cognition Speech: Other speech findings present (Neuro) Gait exam (Neuro): Normal gait present Motor exam (neuro): Pronator motor function not present, no tremor noted, no asterixis, Motor fasciculations not present, Normal motor muscle tone present throughout and Motor abnormalities not present Sensory Exam: Bilaterally intact graphesthesia Deep tendon reflexes (DTR's): Right triceps reflex intensity grade: 3+, Left triceps reflex intensity grade: 3+, Rt Biceps (C5, C6): 3+, Left biceps reflex intensity grade: 3+, Right brachioradialis reflex intensity grade: 3+, Left brachioradialis reflex intensity grade: 3+, Right patellar reflex intensity grade: 3+, Left patellar reflex intensity grade: 3+, Right ankle reflex intensity grade: 3+ and Left ankle reflex intensity grade: 3+ Plantar Reflex Responses: downgoing: left, upgoing (positive Babinski): right and equivocal: right Coordination: [id number] test normal, [id number] test normal, tandem gait normal and Romberg test negative Pupils: Normal pupillary reactivity/response: bilateral Extrem: General: Yes normal to inspection, Yes normal exam except as noted and Yes no pedal edema Psych: Appearance: grossly normal Mental Status: mental status grossly normal Speech and movement: Normal speech and movement present and Clear speech present Affect: normal affect Attitude: cooperative Thought process: Normal thought process present Results Labs CBC & Chem 7: 07/03/20 05:59 07/03/20 05:59 Labs: Short CBC 07/02/20 07/03/20 Range/Units 17:37 05:59 WBC 8.5 9.2 (4.8-10.8) X10*3/uL Hgb 13.2 12.7 (12.0-16.0) g/dl Hct 38.7 37.1 (37-47) % Plt Count 279 271 (160-400) X10*3/uL BMP 07/02/20 07/03/20 17:37 05:59 Sodium 139 137 Potassium 4.0 4.6 Chloride 103 105 Carbon Dioxide 24 23 BUN 12 14 Creatinine 0.82 0.93 Calcium 9.3 9.1 Urine 07/02/20 Range/Units 17:37 Urine Color YELLOW Urine Appearance CLEAR Urine pH 6.0 (5.0-8.0) Ur Specific [place] 1.025 (1.005-1.025) Urine Protein NEG (NEG-TRACE) MG/DL Urine Glucose (UA) NEG (NEG) MG/DL Assessment and Plan (1) Multiple sclerosis: Problem details: New-onset of symptoms with diplopia and imbalance along with extreme fatigue. MRI consistent with MS most of which appears to be chronic the lesions with a 1 new lesion in the right. Trigonal area. Status: Acute Recommend IV Solu-Medrol 1 g a day for 5 days. Out Patient followupIn the office in one week to determine disease modifying therapies to be initiated after approval by her insurance. Procedures Abscess I/D Date of Service: 07/03/20
--- NOTE | 2020-07-03 18:13 | P.PNIM_ITS ---
Subjective Subjective Date of Service: 07/03/20 Interval History: MS flare Review of Systems Patient says that blurriness of her vision is improving but not to the baseline yet Denies any chest pain or shortness of breath or abdominal pain or fever or chills or urinary complaints. Physical Exam Vital Signs: Vital Signs: Last Vital Signs Temp 98.1 F 07/03/20 15:53 Pulse 93 07/03/20 15:53 Resp 18 07/03/20 15:53 BP 131/75 07/03/20 15:53 Pulse Ox 97 07/03/20 15:53 Body Mass Index 32.4 Physical exam: Heent: eyes anicteric eye exam -seems normal , no erythema or discharge. Cvs: rrr, [id number] , no murmur res: clear to auscultation ,no rhonchii or wheezing abd: no rebound or guarding ,nt, bs present. ext pulses present , no cyanosis neuro: axo3 , nonfocal. Objective Data Current Medications Generic Name Dose Route Start Last Admin Trade Name Freq PRN Reason Stop Dose Admin Heparin Sodium (Porcine) 5,000 unit 07/03/20 01:33 07/03/20 18:07 Heparin Sodium,Porcine 5,000 Unit/Ml Vial SUBCUT 5,000 unit Q8H [facility] Administration Methylprednisolone Sodium 66 mls @ 66 mls/hr 07/03/20 21:00 Succinate 1,000 mg/ Dextrose IV Q24H [facility] Ibuprofen 600 mg 07/03/20 09:31 07/03/20 18:05 Ibuprofen 600 Mg Tablet PO 600 mg Q8H PRN Administration Headache Omeprazole 20 mg 07/04/20 06:30 Omeprazole 20 Mg Capsule. PO DAILY@0630 [facility] Sodium Chloride 3 ml 07/03/20 08:00 07/03/20 18:05 0.9 % Sodium Chloride Flush 3 Ml Syringe IVFLUSH 3 ml QSHIFT [facility] Administration Labs CBC & Chem 7: 07/03/20 05:59 07/03/20 05:59 Assessment and Plan (1) Multiple sclerosis: Problem details: New-onset of symptoms with diplopia and imbalance along with extreme fatigue. MRI consistent with MS most of which appears to be chronic the lesions with a 1 new lesion in the right. Trigonal area. Status: Acute Assessment and Plan: 1. Multiple sclerosis flare: New-onset of symptoms with diplopia and imbalance along with extreme fatigue. MRI consistent with MS most of which appears to be chronic the lesions with a 1 new lesion in the right. Trigonal area. Seen by Neurology: Recommend IV Solu-Medrol 1 g a day for 5 days. Out Patient followup in the Neurology office in one week to determine disease modifying therapies .
[2020-07-03] MEDS: Morphine Sulfate 2 MG/ML CARTRIDGE 1 MG IVPUSH (20:25)
--- NOTE | 2020-07-03 20:25 | PM.EVENT ---
Event Note Date of Service: 07/03/20 Event Note: [employer] called around 8:10 pm given that patient started c/o chest pain. I assessed and evaluated the patient at the bedside, laying down in bed c/o mild discomfort of the chest, sharp like, retrosternal, none radiating, not associated with SOB. EKG done at the bedside which shows no evidence of any acute ST T wave changes. Pain at present likely musculoskeletal in nature . One dose of morphine to be given and will monitor.
[2020-07-03] MEDS: LORazepam 2 MG/ML VIAL 1 MG IVPUSH (21:20)
--- NOTE | 2020-07-03 21:41 | MHC.PIE ---
p; pt c/o chest pain 05/23, non reproducible. 118/65, p 101, o2 100, t 98.0 i; partner called, notified; ekg ordered. new order morphine iv now. p; pt cont to c/o pain, pt now reports pain d/t anxiety, pt reports ativan given last night helped. bp 115/57, p 97 i; dr matthews notified; new order ativan 0.5 mg iv now e; will cont to monitor
[2020-07-04 04:04] VITALS: BP 118/49; PULSE 93; RESP 18; TEMP 36.3; O2SAT 98
[2020-07-04] MEDS: Omeprazole 20 MG CAPSULE.DR PO (06:26)
[2020-07-04 07:13] VITALS: BP 133/74; PULSE 86; RESP 16; TEMP 36.6; O2SAT 97
--- NOTE | 2020-07-04 09:10 | P.PNIM_ITS ---
Subjective Subjective Date of Service: 07/05/20 Interval History: Seen in f/u for new onset of MS--She feels better than when she first came, on day 3 of 5 of IVIG. She has some nausea this morning. Gen: no fever Resp: no sob, no cough GI: No n/v, no abd pain Neuro: No confusion, no weakness Physical Exam Vital Signs: Vital Signs: Last Vital Signs Temp 98.1 F 07/03/20 15:53 Pulse 93 07/03/20 15:53 Resp 18 07/03/20 15:53 BP 131/75 07/03/20 15:53 Pulse Ox 97 07/03/20 15:53 Body Mass Index 32.4 General: AO X 3, no acute distress Resp: normal resp effort CVS: S1,S2S2 GI: +BS, NT, no distention Skin: No rash Neuro: motor grossly intact Psych: appropriate affect Objective Data Current Medications Generic Name Dose Route Start Last Admin Trade Name Freq PRN Reason Stop Dose Admin Heparin Sodium (Porcine) 5,000 unit 07/03/20 01:33 07/03/20 23:04 Heparin Sodium,Porcine 5,000 Unit/Ml Vial SUBCUT Not Given Q8H [facility] Methylprednisolone Sodium 66 mls @ 66 mls/hr 07/03/20 21:00 07/03/20 21:21 Succinate 1,000 mg/ Dextrose IV Infused Q24H [facility] Infusion Ibuprofen 600 mg 07/03/20 09:31 07/03/20 18:05 Ibuprofen 600 Mg Tablet PO 600 mg Q8H PRN Administration Headache Omeprazole 20 mg 07/04/20 06:30 07/04/20 06:26 Omeprazole 20 Mg Capsule. PO 20 mg DAILY@0630 [facility] Administration Ondansetron HCl 4 mg 07/04/20 09:09 Ondansetron Hcl 4 Mg/2 Ml Vial IVPUSH Q8H PRN Nausea and Vomiting Sodium Chloride 3 ml 07/03/20 08:00 07/03/20 23:04 0.9 % Sodium Chloride Flush 3 Ml Syringe IVFLUSH 3 ml QSHIFT [facility] Administration Labs CBC & Chem 7: 07/03/20 05:59 07/03/20 05:59 Assessment and Plan (1) Multiple sclerosis: Problem details: New-onset of symptoms with diplopia and imbalance along with extreme fatigue. MRI consistent with MS most of which appears to be chronic the lesions with a 1 new lesion in the right. Trigonal area. Status: Acute Assessment and Plan: 1. Multiple sclerosis flare: New-onset of symptoms with diplopia and imbalance along with extreme fatigue. MRI consistent with MS most of which appears to be chronic the lesions with a 1 new lesion in the right. Trigonal area. Neuro recommends IV Solu-Medrol 1 g a day x 5 days (D3/5), then out Patient followup in the Neurology office in one week to determine disease modifying therapies . Zofran for nausea
[2020-07-04] MEDS: 0.9 % Sodium Chloride Flush 3 ML SYRINGE IVFLUSH ×3 (09:26→22:25)
[2020-07-04] MEDS: Heparin Sodium,Porcine 5,000 UNIT/ML VIAL 5000 UNIT SUBCUT ×2 (09:26→17:19)
[2020-07-04] MEDS: ondansetron HCL 4 MG/2 ML VIAL IVPUSH (09:28)
[2020-07-04 11:58] VITALS: BP 132/50; PULSE 96; RESP 16; TEMP 36.2; O2SAT 98
[2020-07-04 15:25] VITALS: BP 117/69; PULSE 89; RESP 18; TEMP 36.2; O2SAT 98
[2020-07-04] MEDS: LORazepam 0.5 MG TABLET PO (17:37)
[2020-07-04 19:36] VITALS: BP 115/60; PULSE 94; RESP 18; TEMP 36.4; O2SAT 100
[2020-07-04 23:42] VITALS: BP 119/72; PULSE 73; RESP 16; TEMP 36.7; O2SAT 98
[2020-07-05 03:40] VITALS: BP 115/54; PULSE 72; RESP 15; TEMP 36.1; O2SAT 98
[2020-07-05] MEDS: Omeprazole 20 MG CAPSULE.DR PO (06:10)
[2020-07-05 07:17] VITALS: BP 109/51; PULSE 70; RESP 18; TEMP 36.1; O2SAT 98
--- NOTE | 2020-07-05 09:23 | P.PNIM_ITS ---
Subjective Subjective Date of Service: 07/05/20 Interval History: Seen in f/u for new onset of MS--She continues to feel better incrementally, on day 4 of 5 of IVIG. She has some nausea this morning. Gen: no fever Resp: no sob, no cough GI: No n/v, no abd pain Neuro: No confusion, no weakness Physical Exam Vital Signs: Vital Signs: Selected Entries 07/05/20 07:17 Temperature 97 F Pulse Rate 70 Respiratory Rate 18 Blood Pressure 109/51 L Pulse Oximetry 98 Oxygen Delivery Me thod Room Air Body Mass Index 32.4 General: AO X 3, no acute distress Resp: normal resp effort CVS: S1,S2S2 GI: +BS, NT, no distention Skin: No rash Neuro: motor grossly intact Psych: appropriate affect Objective Data Current Medications Generic Name Dose Route Start Last Admin Trade Name Freq PRN Reason Stop Dose Admin Heparin Sodium (Porcine) 5,000 unit 07/03/20 01:33 07/04/20 22:25 Heparin Sodium,Porcine 5,000 Unit/Ml Vial SUBCUT Not Given Q8H [facility] Methylprednisolone Sodium 66 mls @ 66 mls/hr 07/03/20 21:00 07/04/20 22:26 Succinate 1,000 mg/ Dextrose IV Infused Q24H [facility] In[facility] Ibuprofen 600 mg 07/03/20 09:31 07/03/20 18:05 Ibuprofen 600 Mg Tablet PO 600 mg Q8H PRN Administration Headache Lorazepam 0.5 mg 07/04/20 17:26 07/04/20 17:37 Lorazepam 0.5 Mg Tablet PO 0.5 mg Q4H PRN Administration Anxiety Omeprazole 20 mg 07/04/20 06:30 07/05/20 06:10 Omeprazole 20 Mg Capsule.Dr PO 20 mg DAILY@0630 [facility] Administration Ondansetron HCl 4 mg 07/04/20 09:09 07/04/20 09:28 Ondansetron Hcl 4 Mg/2 Ml Vial IVPUSH 4 mg Q8H PRN Administration Nausea and Vomiting Sodium Chloride 3 ml 07/03/20 08:00 07/04/20 22:25 0.9 % Sodium Chloride Flush 3 Ml Syringe IVFLUSH 3 ml QSHIFT [facility] Administration Labs CBC & Chem 7: 07/03/20 05:59 07/03/20 05:59 Assessment and Plan (1) Multiple sclerosis: Status: Acute Assessment and Plan: 1. Multiple sclerosis flare:New-onset of symptoms with diplopia and imbalance along with extreme fatigue. MRI consistent with MS most of which appears to be chronic the lesions with a 1 new lesion in the right. Trigonal area. Neuro recommends IV Solu-Medrol 1 g a day x 5 days (D4/5), then out Patient followup in the Neurology office in one week to determine disease modifying therapies . Zofran for nausea. Out of bed.
[2020-07-05] MEDS: 0.9 % Sodium Chloride Flush 3 ML SYRINGE IVFLUSH ×3 (09:25→23:59)
[2020-07-05] MEDS: ondansetron HCL 4 MG/2 ML VIAL IVPUSH (09:26)
[2020-07-05] MEDS: Heparin Sodium,Porcine 5,000 UNIT/ML VIAL 5000 UNIT SUBCUT ×2 (09:26→17:44)
[2020-07-05 11:05] VITALS: BP 113/58; PULSE 72; RESP 18; TEMP 36.1; O2SAT 99
[2020-07-05 16:00] VITALS: BP 131/69; PULSE 83; RESP 18; TEMP 36.5; O2SAT 99
[2020-07-05] MEDS: Ibuprofen 600 MG TABLET PO (16:13)
[2020-07-05 19:54] VITALS: BP 126/65; PULSE 78; RESP 18; TEMP 36.3; O2SAT 98
[2020-07-05 23:58] VITALS: BP 119/76; PULSE 73; RESP 16; TEMP 36.1; O2SAT 98
[2020-07-06] MEDS: LORazepam 0.5 MG TABLET PO (00:07)
[2020-07-06 03:34] VITALS: BP 113/60; PULSE 80; RESP 16; TEMP 36.6; O2SAT 98
[2020-07-06] MEDS: Omeprazole 20 MG CAPSULE.DR PO (06:17)
[2020-07-06 07:14] VITALS: BP 127/50; PULSE 68; RESP 18; TEMP 36.4; O2SAT 98
[2020-07-06] MEDS: 0.9 % Sodium Chloride Flush 3 ML SYRINGE IVFLUSH ×3 (08:40→21:40)
[2020-07-06] MEDS: Ibuprofen 600 MG TABLET PO ×2 (08:42→21:44)
--- NOTE | 2020-07-06 11:03 | HO.PM.IMPN ---
Subjective Subjective Date of Service: 07/06/20 Interval History: Seen in f/u for new onset of MS--She continues to feel better incrementally, on day 4 of 5 of IVIG. She has some nausea this morning. Gen: no fever Resp: no sob, no cough GI: No n/v, no abd pain Neuro: No confusion, no weakness Physical Exam Vital Signs: Vital Signs: Last Vital Signs Temp 97.6 F 07/06/20 07:14 Pulse 68 07/06/20 07:14 Resp 18 07/06/20 07:14 BP 127/50 L 07/06/20 07:14 Pulse Ox 98 07/06/20 07:14 Body Mass Index 32.4 General: AO X 3, no acute distress Resp: CTA bilateral CVS: S1,S2,RRR GI: +BS, NT, no distention Skin: No rash Neuro: motor grossly intact Psych: appropriate affect Objective Data Current Medications Generic Name Dose Route Start Last Admin Trade Name Freq PRN Reason Stop Dose Admin Heparin Sodium (Porcine) 5,000 unit 07/03/20 01:33 07/06/20 08:40 Heparin Sodium,Porcine 5,000 Unit/Ml Vial SUBCUT Not Given Q8H [facility] Methylprednisolone Sodium 66 mls @ 66 mls/hr 07/03/20 21:00 07/05/20 21:45 Succinate 1,000 mg/ Dextrose IV Infused Q24H [facility] Infusion Ibuprofen 600 mg 07/03/20 09:31 07/06/20 08:42 Ibuprofen 600 Mg Tablet PO 600 mg Q8H PRN Administration Headache Lorazepam 0.5 mg 07/04/20 17:26 07/06/20 00:07 Lorazepam 0.5 Mg Tablet PO 0.5 mg Q4H PRN Administration Anxiety Omeprazole 20 mg 07/04/20 06:30 07/06/20 06:17 Omeprazole 20 Mg Capsule.Dr PO 20 mg DAILY@0630 [facility] Administration Ondansetron HCl 4 mg 07/04/20 09:09 07/05/20 09:26 Ondansetron Hcl 4 Mg/2 Ml Vial IVPUSH 4 mg Q8H PRN Administration Nausea and Vomiting Sodium Chloride 3 ml 07/03/20 08:00 07/06/20 08:40 0.9 % Sodium Chloride Flush 3 Ml Syringe IVFLUSH 3 ml QSHIFT [facility] Administration Labs CBC & Chem 7: 07/03/20 05:59 07/03/20 05:59 Assessment and Plan (1) Multiple sclerosis: Status: Acute Assessment and Plan: 1. Multiple sclerosis flare:New-onset of symptoms with diplopia and imbalance along with extreme fatigue. MRI consistent with MS most of which appears to be chronic the lesions with a 1 new lesion in the right. Trigonal area. Neuro recommends IV Solu-Medrol 1 g a day x 5 days (D/5), then out Patient followup in the Neurology office in one week to determine disease modifying therapies . Zofran for nausea. Out of bed. DC later today
[2020-07-06 11:07] VITALS: BP 116/57; PULSE 80; RESP 18; TEMP 36.2; O2SAT 96
--- NOTE | 2020-07-06 12:04 | MHC.CM.PN ---
PER MD ROUNDS, PATIENT IS EXPECTED TO RETURN HOME TODAY WITH NO NEED FOR SERVICES. RN AWARE OF PLAN.
[2020-07-06 15:27] VITALS: BP 120/71; PULSE 66; RESP 18; TEMP 36.2; O2SAT 99
[2020-07-06] MEDS: Heparin Sodium,Porcine 5,000 UNIT/ML VIAL 5000 UNIT SUBCUT (16:45)
[2020-07-06 19:42] VITALS: BP 120/62; PULSE 84; RESP 17; TEMP 37.2; O2SAT 99
[2020-07-06 23:44] VITALS: BP 117/60; PULSE 75; RESP 16; TEMP 36.1; O2SAT 97
[2020-07-07 03:19] VITALS: BP 108/50; PULSE 76; RESP 14; TEMP 35.9; O2SAT 98
[2020-07-07] MEDS: Omeprazole 20 MG CAPSULE.DR PO (05:56)
--- NOTE | 2020-07-07 07:15 | PM.DS ---
DS: Providers Provider Date of admission: 07/03/20 00:42 Primary care physician: Antelmo Wright MD Consults: 07/03/20 01:33 Consult to Neurology Routine Consulting Provider: [facility] Reason for consultation: MS DS: Diagnosis Discharge Diagnosis (1) Multiple sclerosis: Status: Acute DS: Medications Discharge Medications Home Medications: Home Medications Medication Instructions Recorded Confirmed No Known Home Meds 07/03/20 07/03/20 DS: Summary Hospital Course Hospital Course: 20-year-old female with no significant past medical history presented with 3 days of dizziness, double vision and loss of balance, preceded by 2 months of left-sided ear pain. She does not have any family history of MS or brain malignancies, and denies chest pain and pressure, palpitations, shortness breath, abdominal pain, abdominal distention, Nausea, vomiting, diarrhea, constipation, dysuria, hematuria, fevers, chills, trauma, drug use or . MRI of head showed Multiple T2 signal hyperintense lesions within the supratentorial periventricular white matter bilaterally and likely the dorsal left dorina with the pattern most suggestive of the sequela of demyelinating disease. A small focus of enhancement within the right peritrigonal white matter on image 12 of series 12 is suspicious for a small focus of active demyelination. Patient was evaluated by Dr. Friedman with the following impression and recommendation: New-onset of symptoms with diplopia and imbalance along with extreme fatigue. MRI consistent with MS most of which appears to be chronic the lesions with a 1 new lesion in the right. Trigonal area. Recommend IV Solu-Medrol 1 g a day for 5 days. Out Patient followupIn the office in one week to determine disease modifying therapies to be initiated after approval by her insurance. She has completed 5 days of IV solumedrol and symptoms have improved with no dizziness, no double vision. She will follow up with Dr. Bernardo for further management. Time Spent with Patient Time attestation: Total time spent providing and/or coordinating discharge services: Physical Exam Vital Signs: Vital Signs: Last Vital Signs Temp 96.7 F L 07/07/20 03:19 Pulse 76 07/07/20 03:19 Resp 14 07/07/20 03:19 BP 108/50 L 07/07/20 03:19 Pulse Ox 98 07/07/20 03:19 Body Mass Index 32.4 General: AO X 3, no acute distress Resp: CTA bilateral CVS: S1,S2,RRR GI: +BS, NT, no distention Skin: No rash Neuro: motor grossly intact Psych: appropriate affect DS: Data Data Completed and Pending Labs on day of discharge: 07/02/20 17:21 CT head/brain w con Stat 07/02/20 17:26 UA CC w/rflx Micro + Cult Stat 07/02/20 17:30 ECG 12 lead EKG Stat EKG Documentation DIRECTED 07/02/20 17:32 Glucose, Whole Blood Routine 07/02/20 17:37 Basic Metabolic Panel Stat Complete Blood Count Auto Diff Stat Drug Screen Urine Stat Magnesium Stat Partial Thromboplastin Time Stat Prothrombin Time INR Stat Ur Preg Test Stat 07/02/20 18:37 iohexoL 350 MG/ML [Omnipaque 350 MG/ML] 100 ml IV ONCE ONE 07/02/20 19:47 MR head/brain wo/w con Stat 07/02/20 20:44 GadobutroL [Gadavist] 10 ml IVPUSH ONCE ONE 07/02/20 22:27 methylPREDNISolone Sod Succ/PF [SOLU-MedroL] 1,000 mg 0.9 % Sodium Chloride [Ns] 100 ml IV ONCE 07/02/20 23:04 COVID-19 ID NOW ([facility]) Stat 07/03/20 00:41 Transfer Order Routine 07/03/20 01:32 LORazepam [Ativan] 0.5 mg IVPUSH ONCE ONE 07/03/20 05:59 Basic Metabolic Panel Routine Complete Blood Count Auto Diff Routine SLIDE REVIEW Routine 07/03/20 09:27 methylPREDNISolone Sod Succ [SOLU-MedroL] 1,000 mg IV .STK-MED ONE 07/03/20 20:15 Morphine Sulfate 1 mg IVPUSH ONCE ONE 07/03/20 20:31 LORazepam [Ativan] 1 mg IVPUSH ONCE ONE 07/03/20 21:00 methylPREDNISolone Sod Succ [SOLU-MedroL] 1,000 mg Dextrose 5 % [D5w] 50 ml IV ONCE Laboratory Last Values WBC 9.2 X10*3/uL (4.8-10.8) 07/03/20 05:59 RBC 4.05 X10*6/uL (4.20-5.50) L 07/03/20 05:59 Hgb 12.7 g/dl (12.0-16.0) 07/03/20 05:59 Hct 37.1 % (37-47) 07/03/20 05:59 MCV 91.6 fL (80-98) 07/03/20 05:59 MCH 31.4 pg (27.0-33.0) 07/03/20 05:59 MCHC 34.2 g/dl (31.0-35.0) 07/03/20 05:59 RDW 12.1 % (11.0-16.0) 07/03/20 05:59 Plt Count 271 X10*3/uL (160-400) 07/03/20 05:59 MPV 9.9 fL (9.4-12.3) 07/03/20 05:59 Immature Gran % (Auto) 0.3 % (0.0-0.4) 07/03/20 05:59 Neut % (Auto) 93.2 % (45-73) H 07/03/20 05:59 Lymph % (Auto) 6.3 % (20-40) L 07/03/20 05:59 [place] % (Auto) 0.2 % (2-11) L 07/03/20 05:59 Eos % (Auto) 0.0 % (0-4) 07/03/20 05:59 Baso % (Auto) 0.0 % (0-2) 07/03/20 05:59 Lymph # (Auto) 0.6 X10*3/uL (1.2-4.9) L 07/03/20 05:59 [place] # (Auto) 0.0 X10*3/uL (0.1-1.2) L 07/03/20 05:59 Eos # (Auto) 0.0 X10*3/uL (0.0-0.4) 07/03/20 05:59 Baso # (Auto) 0.0 X10*3/uL (0.0-0.2) 07/03/20 05:59 Abs Immat Gran (auto) 0.03 X10*3/uL (0.00-0.03) 07/03/20 05:59 Absolute Neuts (auto) 8.6 X10*3/uL (2.0-8.3) H 07/03/20 05:59 Absolute Nucleated RBC 0.000 X10*3/uL (0.0-0.012) 07/03/20 05:59 Nucleated RBC % (auto) 0.0 /100WBC (0.0-0.2) 07/03/20 05:59 Smear Tech's Comments VERIFIED 07/03/20 05:59 PT 12.2 SEC (10.8-13.0) 07/02/20 17:37 INR 1.0 (0.9-1.1) 07/02/20 17:37 APTT 34.9 SEC (24.1-38.0) 07/02/20 17:37 Sodium 137 mmol/L (135-145) 07/03/20 05:59 Potassium 4.6 mmol/l (3.3-5.1) 07/03/20 05:59 Chloride 105 mmol/L (96-108) 07/03/20 05:59 Carbon Dioxide 23 mmol/L (22-29) 07/03/20 05:59 Anion Gap 14 (12-20) 07/03/20 05:59 BUN 14 mg/dL (9-16) 07/03/20 05:59 Creatinine 0.93 mg/dL (0.5-1.4) 07/03/20 05:59 Estim Creat Clear Calc 96.8 07/03/20 05:59 Estimated GFR > 60 07/03/20 05:59 POC Glucose 93 mg/dL (60-115) 07/02/20 17:32 Random Glucose 229 mg/dL (60-115) H D 07/03/20 05:59 Calcium 9.1 mg/dL (8.4-10.2) 07/03/20 05:59 Magnesium 2.0 mg/dL (1.6-2.6) 07/02/20 17:37 Urine Color YELLOW 07/02/20 17:37 Urine Appearance CLEAR 07/02/20 17:37 Urine pH 6.0 (5.0-8.0) 07/02/20 17:37 Ur Specific [place] 1.025 (1.005-1.025) 07/02/20 17:37 Urine Protein NEG MG/DL (NEG-TRACE) 07/02/20 17:37 Urine Glucose (UA) NEG MG/DL (NEG) 07/02/20 17:37 Urine Ketones NEG MG/DL (NEG) 07/02/20 17:37 Urine Blood NEG (NEG) 07/02/20 17:37 Urine Nitrite NEG (NEG) 07/02/20 17:37 Ur Leukocyte Esterase NEG (NEG) 07/02/20 17:37 Urine Test NEGATIVE (NEGATIVE) 07/02/20 17:37 Urine Opiates Screen Not Detected (Not Detect) 07/02/20 17:37 Ur Barbiturates Screen Not Detected (Not Detect) 07/02/20 17:37 Ur Phencyclidine Scrn Not Detected (Not Detect) 07/02/20 17:37 Ur Amphetamines Screen Not Detected (Not Detect) 07/02/20 17:37 U Benzodiazepines Scrn Not Detected (Not Detect) 07/02/20 17:37 Urine Cocaine Screen Not Detected (Not Detect) 07/02/20 17:37 U Marijuana (THC) Screen Not Detected (Not Detect) 07/02/20 17:37 COVID-19 (MARANDA) Negative (Negative) 07/02/20 23:04 COVID-19 Clin Com See Note 07/02/20 23:04 Discharge Plan Discharge Anticipated Discharge Date/Time: 07/07/20 07:44 Patient Disposition: Home, Self-Care Referrals: Antelmo Camp MD [Primary Care Provider] - Abigail Trimble MD [Physician] - 1 Week (Call for appointment) Discharge Medications: No Action No Known Home Meds RF: 0 Discharge Orders: Discharge Order (Routine); Ordered 07/07/20 Ordered By: David Olson Diet: advance to usual diet Activity on Discharge: As tolerated Discharge Date/Time: 07/07/20 09:01 Visit Report Forms: Patient Portal Discharge page Care Plan Goals: Control of Multiple Sclerosis Health Concerns: Newly diagnosed MS Plan of Treatment: Follow up with Dr[facility]
[2020-07-07 07:48] VITALS: BP 123/59; PULSE 63; RESP 18; TEMP 36.2; O2SAT 98
--- NOTE | 2020-07-07 08:48 | MHC.CM.PN ---
PATIENT IS DC TODAY WITH NO NEED FOR SERVICES. UNIT AWARE OF PLAN
== END 2020-07-07 09:01 | disposition home or self-care (01) | DRG 43 ==
LOC: HO.ED 22:42 → HO.S3 07-03 01:02
PROVIDERS: Nurse Practitioner Family; Admitting Provider Internal Medicine; Emergency Provider Emergency Medicine; PCP Internal Medicine; Visit Provider Internal Medicine
DX: G35 Multiple sclerosis (principal); F41.9 Anxiety disorder, unspecified; Z20.828 Contact with and (suspected) exposure to other viral communicable diseases; Z88.0 Allergy status to penicillin
CPT/HCPCS: 36415; 70460; 70553; 80048; 80307; 81003; 81025; 82947; 83735; 85025; 85610; 85730; 87635; 93005; 94799; 96374; 99223; 99285; 99291; A9585; J2060; J2270; J2405; J2930; Q9967

== ENCOUNTER 2020-07-17 15:10 | Outpatient (REF) | payer MEDICAID, SELFPAY ==
--- NOTE | 2020-07-17 16:45 | MR_ITS ---
EXAMINATION: MR CERVICAL SPINE WITHOUT AND WITH CONTRAST CLINICAL INFORMATION: Weakness and numbness. Evaluate for cord lesions. COMPARISON: Brain MRI dated 07/02/2020. TECHNIQUE: MRI of the cervical spine was obtained using routine sequences with and without contrast. Intravenous contrast: Gadavist 8.5 mL. FINDINGS: No cord lesions are identified. There is no abnormal intramedullary or leptomeningeal enhancement. The discs are well-hydrated. There are no disc protrusions, central canal stenosis, or foraminal narrowing. The craniovertebral junction and imaged posterior fossa are unremarkable. The marrow signal is homogeneous. The paraspinal soft tissues are unremarkable. The lung apices are clear. MR/MR cervical spine wo/w con IMPRESSION: No cord lesions or abnormal enhancement. Normal MRI of the cervical spine.
== END 2020-07-17 15:11 | disposition home or self-care (01) ==
LOC: HO.MRI 15:10
PROVIDERS: Visit Provider Psychiatry & Neurology Neurology
DX: G35 Multiple sclerosis (principal)
CPT/HCPCS: 72156; A9585

== ENCOUNTER 2020-08-04 08:53 | Outpatient (REF) | payer MEDICAID, SELFPAY | END 2020-08-04 08:54 | disposition home or self-care (01) | LOC: HO.LAB 08:53 | PROVIDERS: PCP Internal Medicine; Visit Provider Internal Medicine | DX: Z20.828 Contact with and (suspected) exposure to other viral communicable diseases (principal) | CPT/HCPCS: C9803; U0003 ==

== ENCOUNTER 2020-10-12 03:36 | Emergency (ER) | payer MEDICAID, SELFPAY ==
[2020-10-12 04:44] VITALS: BP 133/84; PULSE 94; RESP 18; TEMP 36.6; O2SAT 98; BMI 34.2
[2020-10-12 06:00] VITALS: BP 125/82; PULSE 84; RESP 18; TEMP 36.4; O2SAT 99
--- NOTE | 2020-10-12 06:39 | ED.GENADULT ---
HPI - General Adult General Chief complaint: General Medical Stated complaint: MS Flare Time Seen by Provider: 10/12/20 06:26 Source: patient and old records reviewed Mode of arrival: ambulatory Limitations: no limitations History of Present Illness HPI narrative: 20 yo female with MS recent flare completed 5 days of IV steroids in June has not started her immunomodulators yet but notes a couple of days L eye pain and sinus congestion causing left headache, no other neuro symptoms no change in vision no numbness/weakness, worried because she had a headache last time with her flare but not sinus complaints like she has today MD complaint: headache Onset (ago): day(s) (2) Location: head Radiation: non-radiation Severity: mild Quality: aching and dull Pain Consistency: constant Relieving factors: none Exacerbating factors: other (leaning forwards) Associated symptoms: headaches and other (sinus pressure, congestion, runny nose) Treatments prior to arrival: cold therapy Related Data Previous Rx's Medication Instructions Recorded azithromycin 250 mg PO DAILY 4 Days #4 tab 10/12/20 [id number] 1 tab PO Q6H PRN #20 tab 10/12/20 cyclobenzaprine 10 mg PO TID PRN #14 tab 10/12/20 ondansetron 4 mg PO Q8H PRN #20 tab 10/12/20 prednisone 60 mg PO DAILY 4 Days #12 tab 10/12/20 Allergies Allergy/AdvReac Type Severity Reaction Status Date / Time amoxicillin [AMOXICILLIN] Allergy Severe FACIAL AND Verified 07/03/20 02:59 THROAT SWELLING Penicillins [PENICILLINS] Allergy Unknown SWELLING Verified 07/03/20 02:59 Review of Systems Review of Systems: Constitutional : No Fever, No Chills, No Fatigue ENT/Mouth : No sore throat, pos Rhinorrhea, pos sinus pain Eyes: pos Eye Pain, No Swelling, No Redness Cardiovascular : No Chest Pain, No SOB, No Dyspnea on Exertion Respiratory : No Cough, No Sputum Gastrointestinal : No Nausea, No Vomiting, No Diarrhea, No abdominal Pain Genitourinary : No Dysuria, No Urinary Frequency, No Hematuria, Musculoskeletal : No joint pain, No Myalgias, No Joint Swelling Skin : No Skin Lesions, No rash Neuro : No Weakness, No Numbness, No Dizziness, positive Headache Psych : No Anxiety/Panic, No Depression Heme/Lymph: No Bruising, No Bleeding,No Lymphadenopathy Endocrine : No Polyuria, No Polydipsia All other systems reviewed and are negative [facility] Past Medical History Attestation statement: The following information was validated with the patient. 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 Oriented X3. No acute distress. Eyes: Pupils equal, round and reactive to light. ENT: Pharynx normal. L max sinus swelling noted with ttp along max sinus as well as frontal sinus, congested, pain with leaning forward Neck: Normal inspection. Neck supple. CVS: Normal heart rate and rhythm. Pulses normal. Respiratory: No respiratory distress. Breath sounds normal. Abdomen: Soft and nontender. Skin: Skin warm and dry. Normal skin color. Normal skin turgor. Extremities: No lower extremity edema. No calf ttp Neuro: Oriented X 3. No motor deficit. No sensory deficit. Course Course Course Narrative: patient feels much better, does have appointment with Neurology today Medical Decision Making MDM Narrative Medical decision making narrative: 20 yo female with MS but comes in with sinus complaints and headache - sinus issues are not typical of her MS and she has swelling over her max sinus - her history and exam concerning for acute sinusitis MS flare seems less likely will treat her symptoms, start on steroid burst and PO azithromycin, dispo per improvement, she has no neurologic findings at this time. Discharge Plan Discharge Clinical Impression: Sinusitis Qualifiers: Sinusitis location: maxillary Chronicity: acute Recurrence: non-recurrent Qualified Code(s): J01.00 - Acute maxillary sinusitis, unspecified Patient Disposition: Home, Self-Care Instructions: Sinusitis (ED) Additional Instructions: return to ED for any worsening symptoms or concerns your Neurology appointment is at 1030 if you do not improve or if you have vision changes come back as soon as possible Prescriptions: New cyclobenzaprine 10 mg tablet 10 mg PO TID PRN (Reason: muscle spasm) Qty: 14 RF: 0 prednisone 20 mg tablet 60 mg PO DAILY 4 Days Qty: 12 RF: 0 [id number]-oewzikdcpcriu-tqxb 50-325-40 mg tablet 1 tab PO Q6H PRN (Reason: pain) Qty: 20 RF: 0 ondansetron 4 mg tablet,disintegrating 4 mg PO Q8H PRN (Reason: nausea and vomiting) Qty: 20 RF: 0 azithromycin 250 mg tablet 250 mg PO DAILY 4 Days Qty: 4 RF: 0
[2020-10-12] MEDS: Butalb/Acetamin/Caff 50/325/40 TABLET 1 TAB PO (06:51)
[2020-10-12] MEDS: Cyclobenzaprine HCl 10 MG TABLET PO (06:52)
[2020-10-12] MEDS: Azithromycin 500 MG TABLET PO (06:52)
[2020-10-12] MEDS: Ketorolac Tromethamine 60 MG/2 ML VIAL IM (06:52)
[2020-10-12] MEDS: predniSONE 20 MG TABLET 60 MG PO (06:58)
[2020-10-12 07:34] VITALS: BP 125/82; PULSE 84; RESP 18; TEMP 36.4; O2SAT 99
== END 2020-10-12 08:43 | disposition home or self-care (01) ==
PROVIDERS: Emergency Provider Emergency Medicine; PCP Internal Medicine
DX: J01.00 Acute maxillary sinusitis, unspecified (principal); R51.9 Headache, unspecified; G35 Multiple sclerosis
CPT/HCPCS: 96372; 99284; J1885

== ENCOUNTER 2020-11-18 09:37 | Outpatient (REF) | payer MEDICAID, SELFPAY ==
--- NOTE | ~2020-11-18 | MR_ITS ---
EXAMINATION: MR BRAIN WITHOUT CONTRAST CLINICAL INFORMATION: Multiple sclerosis follow up study. Headaches. Numbness in right thigh. COMPARISON: Prior MRI dated 12/31/2019. TECHNIQUE: Multiplanar, multisequential imaging was obtained without intravenous administration of contrast. FINDINGS: Mild T2 hyperintense foci of signal abnormality in the cerebral white matter are again visible and unchanged in size or morphology. No new lesions are identified. No diffusion abnormalities are identified to suggest an acute infarct. The ventricles are normal in size. No mass effect or midline shift is seen. No extra-axial fluid collections are seen. The craniovertebral junction, marrow signal, and midline structures are normal. The major intracranial flow voids at the level of the [place] are preserved. The dural venous sinus flow voids are maintained. The mastoid air cells and paranasal sinuses are well aerated. MR/MR head/brain wo con IMPRESSION: No evidence of disease progression. No acute process.
[2020-11-18 11:47] LABS: MANUAL DIFF FLAG NO
[2020-11-18 11:53] LABS: Basophils Percent Auto 0.4 % (0-2); Eosinophils Absolute Auto 0.1 X10*3/uL (0.0-0.4); Eosinophils Percent Auto 0.8 % (0-4); Hematocrit 37.8 % (37-47); Hemoglobin 12.6 g/dl (12.0-16.0); Imm Gran Abs Auto 0.01 X10*3/uL (0.00-0.03); Imm Gran Pct Auto 0.1 % (0.0-0.4); Lymphocytes Absolute Auto 1.6 X10*3/uL (1.2-4.9); Lymphocytes Percent Auto 22.8 % (20-40); Mean Corpuscular HGB Conc 33.3 g/dl (31.0-35.0); Mean Corpuscular Hemoglobin 30.5 pg (27.0-33.0); Mean Corpuscular Volume 91.5 fL (80-98); Mean Platelet Volume 9.9 fL (9.4-12.3); Monocytes Absolute Auto 0.5 X10*3/uL (0.1-1.2); Monocytes Percent Auto 6.7 % (2-11); Neutrophils Percent Auto 69.2 % (45-73); Platelet Count 292 X10*3/uL (160-400); Red Blood Count 4.13 X10*6/uL (4.20-5.50); Red Cell Distribution Width 12.7 % (11.0-16.0); White Blood Count 7.2 X10*3/uL (4.8-10.8)
[2020-11-18 17:58] LABS: Alanine Aminotransferase 35 U/L (0-31); Albumin Level 4.6 g/dL (3.5-5.0); Alkaline Phosphatase 79 U/L (39-117); Aspartate Amino Transferase 21 U/L (5-31); Bilirubin Direct 0.2 mg/dL (0.0-0.5); Bilirubin Total 0.5 mg/dL (0.0-1.0); Total Protein 7.2 g/dL (6.5-8.0)
[2020-11-25 03:32] LABS: JCV Antibody POSITIVE
== END 2020-11-18 09:38 | disposition home or self-care (01) ==
LOC: HO.MRI 09:37
PROVIDERS: Visit Provider Psychiatry & Neurology Neurology
DX: G35 Multiple sclerosis (principal)
CPT/HCPCS: 36415; 70551; 80076; 85025; 86711

== ENCOUNTER 2021-04-11 01:55 | Emergency (ER) | payer MEDICAID, SELFPAY ==
--- NOTE | ~2021-04-11 | US_ITS ---
EXAMINATION: US OBSTETRICAL ULTRASOUND CLINICAL INFORMATION: Left lower quadrant pain, 10 weeks COMPARISON: None. TECHNIQUE: Sonographic evaluation of the pelvis was performed transabdominally. FINDINGS: There is an intrauterine gestational sac containing a yolk sac and pole. [place]-rump length of 4.5 cm corresponds to a gestational age of 11 weeks 3 days (estimated date of delivery 10/28/2021). A heart beat is identified with a rate of 161 bpm. The right ovary measures 2.8 x 2.0 x 2.4 cm and appears unremarkable. The left ovary measures 3.8 x 2.3 x 2.4 cm and also appears unremarkable. No free fluid is seen. US/US OB <= 14 weeks fetus IMPRESSION: Single live intrauterine with gestational age of 11 weeks 3 days, corresponding to an estimated date of delivery 10/28/2020.
[2021-04-11 02:13] VITALS: BP 119/67; PULSE 87; RESP 16; TEMP 36.6; O2SAT 100; BMI 34.7
--- NOTE | 2021-04-11 02:27 | PC.NURSE ---
IV established, labs and UA obtained and sent. Awaiting primary MD eval.
[2021-04-11 02:30] LABS: MANUAL DIFF FLAG NO
[2021-04-11] MEDS: 0.9 % Sodium Chloride 1,000 ML 999 ML IV (02:30)
[2021-04-11 02:37] LABS: Basophils Percent Auto 0.2 % (0-2); Eosinophils Percent Auto 0.3 % (0-4); Hematocrit 32.7 % (37-47); Hemoglobin 11.5 g/dl (12.0-16.0); Imm Gran Abs Auto 0.05 X10*3/uL (0.00-0.03); Imm Gran Pct Auto 0.4 % (0.0-0.4); Lymphocytes Absolute Auto 1.7 X10*3/uL (1.2-4.9); Lymphocytes Percent Auto 12.9 % (20-40); Mean Corpuscular HGB Conc 35.2 g/dl (31.0-35.0); Mean Corpuscular Hemoglobin 30.9 pg (27.0-33.0); Mean Corpuscular Volume 87.9 fL (80-98); Mean Platelet Volume 9.6 fL (9.4-12.3); Monocytes Absolute Auto 0.7 X10*3/uL (0.1-1.2); Monocytes Percent Auto 5.1 % (2-11); Neutrophils Absolute Auto 10.6 X10*3/uL (2.0-8.3); Neutrophils Percent Auto 81.1 % (45-73); Platelet Count 260 X10*3/uL (160-400); Red Blood Count 3.72 X10*6/uL (4.20-5.50)
[2021-04-11 02:39] LABS: Glucose Urine UA NEG (NEG); Leukocyte Esterase Urine NEG (NEG); Nitrite Urine NEG (NEG); Specific Gravity - Urine >= 1.030 (1.005-1.025); UACC Culture Trigger NO; Urine Blood TRACE (NEG); Urine Ketones 5 MG/DL (NEG); Urine Protein NEG (NEG-TRACE)
[2021-04-11 02:51] LABS: Appearance Urine HAZY; Color Urine YELLOW
[2021-04-11 02:57] LABS: Alanine Aminotransferase 28 U/L (0-31); Albumin Level 4.3 g/dL (3.5-5.0); Alkaline Phosphatase 67 U/L (39-117); Anion Gap 14 (12-20); Aspartate Amino Transferase 14 U/L (5-31); Bilirubin Total 0.3 mg/dL (0.0-1.0); Blood Urea Nitrogen 7 mg/dL (9-16); Calcium 9.3 mg/dL (8.4-10.2); Carbon Dioxide 22 mmol/L (22-29); Chloride 107 mmol/L (96-108); Creatinine Clr Calc Pharmacy 138.1; Estimated Glomerular Filt Rate > 60; Glucose Random 94 mg/dL (60-115); Lipase 35 U/L (8-78); Potassium 3.9 mmol/L (3.3-5.1); Sodium 139 mmol/L (135-145)
[2021-04-11 03:00] LABS: Bacteria Urine 3+ /LPF; Mucus Urine 2+ /LPF; RBC Urine 0-2 /HPF (0); Squamous Epithelial Cell Urine 3+ /LPF
--- NOTE | 2021-04-11 03:04 | ED_ITS ---
HPI - Abdominal Pain General Chief Complaint: Abdominal Pain Stated Complaint: abd pain/vomiting (10 wks preg) Time Seen by Provider: 04/11/21 03:04 Source: patient Mode of arrival: ambulatory History of Present Illness HPI narrative: 21-year-old female, , gravid, 10 weeks EGA, history of MS presents with left-sided abdominal pain that began at approximately 10:00 p.m. associated with an isolated episode of diarrhea as well as vomiting and patient reports chills secondary to the pain which began worsening and was sharp in nature. Patient denies any vaginal bleeding, loss of fluid or pelvic cramping. Patient does describe dysuria for a couple of days. Related Data Previous Rx's Medication Instructions Recorded azithromycin 250 mg tablet 250 mg PO DAILY 4 Days #4 tab 10/12/20 xoqcowdsyy-vinvdlmngjohk-qkslocen 1 tab PO Q6H PRN #20 tab 10/12/20 50 mg-325 mg-40 mg tablet cyclobenzaprine 10 mg tablet 10 mg PO TID PRN #14 tab 10/12/20 ondansetron 4 mg disintegrating 4 mg PO Q8H PRN #20 tab 10/12/20 tablet prednisone 20 mg tablet 60 mg PO DAILY 4 Days #12 tab 10/12/20 Allergies Allergy/AdvReac Type Severity Reaction Status Date / Time amoxicillin [AMOXICILLIN] Allergy Severe FACIAL AND Verified 04/11/21 02:18 THROAT SWELLING Penicillins [PENICILLINS] Allergy Unknown SWELLING Verified 04/11/21 02:18 Review of Systems Review of Systems Pertinent positives and negatives as stated in HPI and 10 point review of systems is otherwise negative. Physical Exam Vital Signs: Vital Signs: Last Vital Signs Temp 97.9 F 04/11/21 02:13 Pulse 80 04/11/21 06:10 Resp 16 04/11/21 06:10 BP 125/62 04/11/21 06:10 Pulse Ox 100 04/11/21 02:13 Body Mass Index 34.7 VITAL SIGNS: Reviewed. GENERAL: Well developed, well nourished, in no acute distress. HEAD: Normocephalic/atraumatic EYES: PERRLA, EOMI OROPHARYNX: no oral lesions noted, posterior pharynx clear NECK: Supple, no adenopathy LUNGS: Normal breath sounds. No adventitious sounds or accessory muscle use. SpO2<100> CARDIOVASCULAR: Regular rate and rhythm without noted murmurs ABDOMEN: Gravid, Soft, minimal tenderness on deep palpation, non-distended with bowel sounds. SKIN: Inspection of the skin reveals no rashes NEUROLOGIC: Alert and oriented x 4. Strength and sensation to light touch were grossly intact x 4. Course Course Course Narrative: 21-year-old female with history and clinical presentation suggestive of possible UTI, renal colic, gastroenteritis, and appendicitis. On review of all investigations although there is a noted leukocytosis this is not uncommon during and on re-evaluation patient reports that the pain has subsided. Otherwise, there are no acute findings. Due to the fact that the patient has not had a prior ultrasound will move forward with obtaining and will be pelvic and/or transvaginal as indicated and re-evaluate the patient afterwards. Review of all investigations and on re-evaluation patient's abdominal discomfort has gradually improved with serial exams, she is no longer nauseous and has tolerated oral intake. And ultrasound demonstrates IUP at 11.3 with TESFAYE- 10/28/2020. All results and plan were discussed with the patient at bedside and she will be discharged in stable condition with strict return precautions. MDM - Abdominal Pain Lab Data Result diagrams: 04/11/21 02:24 04/11/21 02:24 Labs: Lab Results 04/11/21 04/11/21 04/11/21 Range/Units 02:24 02:24 02:24 WBC 13.0 H (4.8-10.8) X10*3/uL RBC 3.72 L (4.20-5.50) X10*6/uL Hgb 11.5 L (12.0-16.0) g/dl Hct 32.7 L (37-47) % MCV 87.9 (80-98) fL MCH 30.9 (27.0-33.0) pg MCHC 35.2 H (31.0-35.0) g/dl RDW 13.0 (11.0-16.0) % Plt Count 260 (160-400) X10*3/uL MPV 9.6 (9.4-12.3) fL Immature Gran % (Auto) 0.4 (0.0-0.4) % Neut % (Auto) 81.1 H (45-73) % Lymph % (Auto) 12.9 L (20-40) % [place] % (Auto) 5.1 (2-11) % Eos % (Auto) 0.3 (0-4) % Baso % (Auto) 0.2 (0-2) % Lymph # (Auto) 1.7 (1.2-4.9) X10*3/uL [place] # (Auto) 0.7 (0.1-1.2) X10*3/uL Eos # (Auto) 0.0 (0.0-0.4) X10*3/uL Baso # (Auto) 0.0 (0.0-0.2) X10*3/uL Abs Immat Gran (auto) 0.05 H (0.00-0.03) X10*3/uL Absolute Neuts (auto) 10.6 H (2.0-8.3) X10*3/uL Absolute Nucleated RBC 0.000 (0.0-0.012) X10*3/uL Nucleated RBC % (auto) 0.0 (0.0-0.2) /100WBC Sodium 139 (135-145) mmol/L Potassium 3.9 (3.3-5.1) mmol/L Chloride 107 (96-108) mmol/L Carbon Dioxide 22 (22-29) mmol/L Anion Gap 14 (12-20) BUN 7 L (9-16) mg/dL Creatinine 0.67 (0.5-1.4) mg/dL Estim Creat Clear Calc 138.1 Estimated GFR > 60 Random Glucose 94 D (60-115) mg/dL Calcium 9.3 (8.4-10.2) mg/dL Total Bilirubin 0.3 (0.0-1.0) mg/dL AST 14 (5-31) U/L ALT 28 (0-31) U/L Alkaline Phosphatase 67 (39-117) U/L Total Protein 7.0 (6.5-8.0) g/dL Albumin 4.3 (3.5-5.0) g/dL Lipase 35 (8-78) U/L Beta HCG, Quant 414982 mIU/mL Urine Color YELLOW Urine Appearance HAZY Urine pH 6.0 (5.0-8.0) Ur Specific [place] >= 1.030 H (1.005-1.025) Urine Protein NEG (NEG-TRACE) MG/DL Urine Glucose (UA) NEG (NEG) MG/DL Urine Ketones 5 (NEG) MG/DL Urine Blood TRACE (NEG) Urine Nitrite NEG (NEG) Ur Leukocyte Esterase NEG (NEG) Urine RBC 0-2 (0) /HPF Urine WBC 1-4 (0-4) /HPF Ur Squamous Epith Cells 3+ /LPF Urine Bacteria 3+ /LPF Urine Mucus 2+ /LPF Discharge Plan Discharge Clinical Impression: Abdominal discomfort, Gastroenteritis Patient Disposition: Home, Self-Care Instructions: Gastroenteritis (ED), at 11 to 14 Weeks (ED) Additional Instructions: 1. Continue to take vitamins and stay well hydrated especially with water. 2. Follow-up with your OB physician on Monday morning for re-evaluation. Return to the ER for any acute worsening of your symptoms. 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
--- NOTE | 2021-04-11 04:13 | PC.NURSE ---
Pt ambulating to and from bathroom with a steady gait. MD at bedside for primary eval.
--- NOTE | 2021-04-11 05:06 | PC.NURSE ---
Off to U/S in wheelchair.
--- NOTE | 2021-04-11 05:31 | PC.NURSE ---
Pt returns from U/S, resting in bed, awaiting results.
[2021-04-11 06:10] VITALS: BP 125/62; PULSE 80; RESP 16
--- NOTE | 2021-04-11 06:47 | PC.NURSE ---
MD at bedside discussing results and plan for discharge.
== END 2021-04-11 06:56 | disposition home or self-care (01) ==
PROVIDERS: Emergency Provider Student in an Organized Health Care Education/Training Program; PCP Internal Medicine
DX: O26.91 Pregnancy related conditions, unspecified, first trimester (principal); Z3A.12 12 weeks gestation of pregnancy
CPT/HCPCS: 36415; 76801; 80053; 81001; 83690; 84702; 85025; 99284

== ENCOUNTER 2021-12-27 13:42 | Outpatient (REF) | payer MEDICAID, SELFPAY ==
--- NOTE | ~2021-12-27 | XR_ITS ---
EXAMINATION: XR FOOT, LEFT CLINICAL INFORMATION: Pain COMPARISON: None TECHNIQUE: AP, lateral, and oblique views of the left foot. FINDINGS: No acute fracture or traumatic malalignment. Joint spaces and articular surfaces are maintained. Osseous alignment maintained. Small Achilles enthesophyte. Soft tissues unremarkable without radiopaque foreign body. XR/XR foot LT min 3V IMPRESSION: No acute findings.
== END 2021-12-27 13:43 | disposition home or self-care (01) ==
LOC: HO.XRAY 13:42
PROVIDERS: PCP Internal Medicine; Visit Provider Family Medicine
DX: M79.675 Pain in left toe(s) (principal)
CPT/HCPCS: 73630

== ENCOUNTER 2022-03-18 12:18 | Outpatient (REF) | payer MEDICAID, SELFPAY ==
--- NOTE | ~2022-03-18 | US_ITS ---
EXAMINATION: US ABDOMEN COMPLETE CLINICAL INFORMATION: Fatty liver. Epigastric pain. COMPARISON: CT abdomen and pelvis 04/03/2020. TECHNIQUE: Real-time imaging of the abdominal viscera. FINDINGS: PANCREAS: Normal. ABDOMINAL AORTA: The proximal, mid, and distal segments are normal in caliber. INFERIOR VENA CAVA: Visualized portions are normal. LIVER: Normal. The liver is normal in size. The liver contour is normal. Parenchymal echogenicity is normal. No focal hepatic lesion. There is no intrahepatic biliary duct dilatation seen. GALLBLADDER: The gallbladder is physiologically distended. Multiple mobile gallstones are present. No evidence of gallbladder wall thickening or pericholecystic fluid. COMMON BILE DUCT: Normal in caliber measuring 0.5 cm in diameter. RIGHT KIDNEY: There is mild right pelvic fullness. No hydronephrosis. No renal calculi or focal parenchymal lesions. The kidney measures 12.1 cm in maximum dimension. LEFT KIDNEY: Normal. No hydronephrosis. No renal calculi or focal parenchymal lesions. The kidney measures 12.0 cm in maximum dimension. SPLEEN: Normal. The spleen measures 11.3 cm in maximum dimension. FREE FLUID: None. US/US abdomen complete IMPRESSION: There is mild right kidney pelvic fullness. Cholelithiasis without wall thickening. The rest of the abdominal ultrasound is unremarkable.
== END 2022-03-18 12:19 | disposition home or self-care (01) ==
LOC: HO.US 12:18
PROVIDERS: Visit Provider Student in an Organized Health Care Education/Training Program
DX: R10.13 Epigastric pain (principal); K76.0 Fatty (change of) liver, not elsewhere classified
CPT/HCPCS: 76700

== ENCOUNTER 2022-03-21 02:56 | Emergency (ER) | payer MEDICAID, SELFPAY ==
[2022-03-21 03:07] VITALS: BP 123/75; PULSE 81; RESP 18; TEMP 36.8; O2SAT 98; BMI 34.7
[2022-03-21 04:45] LABS: Basophils Percent Auto 0.4 % (0-2); Eosinophils Percent Auto 0.5 % (0-4); Hematocrit 36.6 % (37.0-47.0); Hemoglobin 12.5 g/dl (12.0-16.0); Imm Gran Abs Auto 0.02 X10*3/uL (0.00-0.03); Imm Gran Pct Auto 0.2 % (0.0-0.4); Lymphocytes Absolute Auto 1.4 X10*3/uL (1.2-4.9); Lymphocytes Percent Auto 17.2 % (20-40); MANUAL DIFF FLAG NO; Mean Corpuscular HGB Conc 34.2 g/dl (31.0-35.0); Mean Corpuscular Hemoglobin 29.8 pg (27.0-33.0); Mean Corpuscular Volume 87.4 fL (80.0-98.0); Mean Platelet Volume 9.4 fL (9.4-12.3); Monocytes Absolute Auto 0.4 X10*3/uL (0.1-1.2); Monocytes Percent Auto 4.3 % (2-11); Neutrophils Absolute Auto 6.3 x10*3/uL (2.0-8.3); Neutrophils Percent Auto 77.4 % (45-73); Platelet Count 254 X10*3/uL (160-400); Red Blood Count 4.19 X10*6/uL (4.20-5.50); Red Cell Distribution Width 13.1 % (11.0-16.0); White Blood Count 8.2 X10*3/uL (4.8-10.8)
[2022-03-21 05:02] LABS: Alanine Aminotransferase 49 U/L (0-31); Albumin Level 4.6 g/dL (3.5-5.0); Alkaline Phosphatase 112 U/L (39-117); Anion Gap 14 (12-20); Aspartate Amino Transferase 21 U/L (5-31); Bilirubin Total 0.4 mg/dL (0.0-1.0); Blood Urea Nitrogen 15 mg/dL (9-16); Calcium 9.4 mg/dL (8.4-10.2); Carbon Dioxide 26 mmol/L (22-29); Chloride 105 mmol/L (96-108); Estimated Glomerular Filt Rate > 60; Glucose Random 109 mg/dL (60-115); Lipase 31 U/L (8-78); Potassium 4.4 mmol/L (3.3-5.1); Sodium 141 mmol/L (135-145); Total Protein 7.3 g/dL (6.5-8.0)
[2022-03-21 07:14] VITALS: BP 112/61; PULSE 68; RESP 16; TEMP 35.7; O2SAT 100
[2022-03-21 07:30] LABS: Appearance Urine CLEAR; Color Urine YELLOW; Glucose Urine UA NEG (NEG); Leukocyte Esterase Urine NEG (NEG); Nitrite Urine NEG (NEG); Specific Gravity - Urine 1.025 (1.005-1.025); Urine Blood NEG (NEG); Urine Ketones NEG (NEG); Urine Protein NEG (NEG-TRACE)
[2022-03-21 07:31] LABS: UPreg QC Valid YES; Urine Pregnancy NEGATIVE (NEGATIVE)
[2022-03-21 10:02] VITALS: BP 124/73; PULSE 63; RESP 16; O2SAT 99
--- NOTE | 2022-03-21 10:15 | ED.ABDPAIN ---
HPI - Abdominal Pain General Chief Complaint: Abdominal Pain Stated Complaint: gallbladder pain Time Seen by Provider: 03/21/22 08:48 History of Present Illness HPI narrative: Patient complains of intermittent mostly at night epigastric and right-sided abdominal pain, she has no pain or vomiting today She does get nausea when she has these episodes of pain Related Data Previous Rx's Medication Instructions Recorded azithromycin 250 mg tablet 250 mg PO DAILY 4 days #4 tabs 10/12/20 lcfndanrnh-vhpbcxcftuvts-qfernvge 1 tab PO Q6H PRN pain #20 tabs 10/12/20 50 mg-325 mg-40 mg tablet cyclobenzaprine 10 mg tablet 10 mg PO TID PRN muscle spasm #14 10/12/20 tabs ondansetron 4 mg disintegrating 4 mg PO Q8H PRN nausea and 10/12/20 tablet vomiting #20 tabs prednisone 20 mg tablet 60 mg PO DAILY 4 days #12 tabs 10/12/20 ibuprofen 600 mg tablet 600 mg PO Q6H PRN pain #20 tabs 03/21/22 Allergies Allergy/AdvReac Type Severity Reaction Status Date / Time amoxicillin [AMOXICILLIN] Allergy Severe FACIAL AND Verified 04/11/21 02:18 THROAT SWELLING Penicillins [PENICILLINS] Allergy Unknown SWELLING Verified 04/11/21 02:18 Review of Systems Review of Systems Positive for episodes of abdominal pain and nausea No fever no chills no dizziness or weakness no fainting no headache no neck pain no chest pain no abdominal pain at this moment no nausea or vomiting at this moment no diarrhea no dysuria no skin rash Yes all other systems are reviewed and are negative [facility] Past Medical History Source: nursing notes reviewed Medical History Anxiety 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 Fracture of right lower leg Multiple sclerosis Social History Social History Household Members: Significant Other Housing: Apartment Do you presently have visiting nurse or other home services: No Alcohol intake: current Alcohol intake frequency: holidays/special occasions only Advance Directives: No Advance Directives Information Provided: No service: No Current occupational status: employed Physical Exam ED Vital Signs: Vital Signs - 24 hr 03/21/22 03:07 03/21/22 07:14 03/21/22 10:02 Temperature 98.2 F 96.2 F L Pulse Rate 81 68 63 Respiratory Rate 18 16 16 Blood Pressure 123/75 112/61 124/73 Pulse Oximetry 98 100 99 Oxygen Delivery Method Room Air Room Air Room Air BMI result Body Mass Index 34.7 General appearance no distress Eyes are anicteric no pallor The pharynx is clear with moist mucous membranes Neck is supple Chest clear to auscultation bilateral Heart no murmur Abdomen there is very mild epigastric tenderness now no right-sided tenderness no rebound no guarding The extremities full range of motion x4 Skin no rash Course Course Course Narrative: No acute findings on lab evaluation Urinalysis and tests are negative, no significant LFT elevations The patient had had an ultrasound of her abdomen ordered by her doctor done 3 days ago which showed cholelithiasis without wall thickening Her doctor had started her on an anti acid medication which she has not taken yet as her symptoms are intermittent they may well be from acid, but they can also be from intermittent pain from her gallbladder She has no pain now no symptoms now and is tolerating p.o. and is discharged to follow with her doctor and is advised to start taking the antacid to see if it is helpful MDM - Abdominal Pain Lab Data Attestation: I reviewed the patient's lab results. Result diagrams: 03/21/22 04:39 03/21/22 04:39 Labs: Lab Results 03/21/22 03/21/22 03/21/22 Range/Units 04:39 04:39 07:22 WBC 8.2 (4.8-10.8) X10*3/uL RBC 4.19 L (4.20-5.50) X10*6/uL Hgb 12.5 (12.0-16.0) g/dl Hct 36.6 L (37.0-47.0) % MCV 87.4 (80.0-98.0) fL MCH 29.8 (27.0-33.0) pg MCHC 34.2 (31.0-35.0) g/dl RDW 13.1 (11.0-16.0) % Plt Count 254 (160-400) X10*3/uL MPV 9.4 (9.4-12.3) fL Immature Gran % (Auto) 0.2 (0.0-0.4) % Neut % (Auto) 77.4 H (45-73) % Lymph % (Auto) 17.2 L (20-40) % [place] % (Auto) 4.3 (2-11) % Eos % (Auto) 0.5 (0-4) % Baso % (Auto) 0.4 (0-2) % Lymph # (Auto) 1.4 (1.2-4.9) X10*3/uL [place] # (Auto) 0.4 (0.1-1.2) X10*3/uL Eos # (Auto) 0.0 (0.0-0.4) X10*3/uL Baso # (Auto) 0.0 (0.0-0.2) X10*3/uL Abs Immat Gran (auto) 0.02 (0.00-0.03) X10*3/uL Absolute Neuts (auto) 6.3 (2.0-8.3) x10*3/uL Absolute Nucleated RBC 0.000 (0.0-0.012) X10*3/uL Nucleated RBC % (auto) 0.0 (0.0-0.2) /100WBC Sodium 141 (135-145) mmol/L Potassium 4.4 (3.3-5.1) mmol/L Chloride 105 (96-108) mmol/L Carbon Dioxide 26 (22-29) mmol/L Anion Gap 14 (12-20) BUN 15 (9-16) mg/dL Creatinine 0.74 (0.5-1.4) mg/dL Estim Creat Clear Calc 125.0 Estimated GFR > 60 Random Glucose 109 (60-115) mg/dL Calcium 9.4 (8.4-10.2) mg/dL Total Bilirubin 0.4 (0.0-1.0) mg/dL AST 21 D (5-31) U/L ALT 49 H (0-31) U/L Alkaline Phosphatase 112 D (39-117) U/L Total Protein 7.3 (6.5-8.0) g/dL Albumin 4.6 (3.5-5.0) g/dL Lipase 31 (8-78) U/L Urine Color YELLOW Urine Appearance CLEAR Urine pH 6.0 (5.0-8.0) Ur Specific [place] 1.025 (1.005-1.025) Urine Protein NEG (NEG-TRACE) MG/DL Urine Glucose (UA) NEG (NEG) MG/DL Urine Ketones NEG (NEG) MG/DL Urine Blood NEG (NEG) Urine Nitrite NEG (NEG) Ur Leukocyte Esterase NEG (NEG) Urine Test (NEGATIVE) 03/21/22 Range/Units 07:22 WBC (4.8-10.8) X10*3/uL RBC (4.20-5.50) X10*6/uL Hgb (12.0-16.0) g/dl Hct (37.0-47.0) % MCV (80.0-98.0) fL MCH (27.0-33.0) pg MCHC (31.0-35.0) g/dl RDW (11.0-16.0) % Plt Count (160-400) X10*3/uL MPV (9.4-12.3) fL Immature Gran % (Auto) (0.0-0.4) % Neut % (Auto) (45-73) % Lymph % (Auto) (20-40) % [place] % (Auto) (2-11) % Eos % (Auto) (0-4) % Baso % (Auto) (0-2) % Lymph # (Auto) (1.2-4.9) X10*3/uL [place] # (Auto) (0.1-1.2) X10*3/uL Eos # (Auto) (0.0-0.4) X10*3/uL Baso # (Auto) (0.0-0.2) X10*3/uL Abs Immat Gran (auto) (0.00-0.03) X10*3/uL Absolute Neuts (auto) (2.0-8.3) x10*3/uL Absolute Nucleated RBC (0.0-0.012) X10*3/uL Nucleated RBC % (auto) (0.0-0.2) /100WBC Sodium (135-145) mmol/L Potassium (3.3-5.1) mmol/L Chloride (96-108) mmol/L Carbon Dioxide (22-29) mmol/L Anion Gap (12-20) BUN (9-16) mg/dL Creatinine (0.5-1.4) mg/dL Estim Creat Clear Calc Estimated GFR Random Glucose (60-115) mg/dL Calcium (8.4-10.2) mg/dL Total Bilirubin (0.0-1.0) mg/dL AST (5-31) U/L ALT (0-31) U/L Alkaline Phosphatase (39-117) U/L Total Protein (6.5-8.0) g/dL Albumin (3.5-5.0) g/dL Lipase (8-78) U/L Urine Color Urine Appearance Urine pH (5.0-8.0) Ur Specific [place] (1.005-1.025) Urine Protein (NEG-TRACE) MG/DL Urine Glucose (UA) (NEG) MG/DL Urine Ketones (NEG) MG/DL Urine Blood (NEG) Urine Nitrite (NEG) Ur Leukocyte Esterase (NEG) Urine Test NEGATIVE (NEGATIVE) Discharge Plan Discharge Clinical Impression: Abdominal pain, Gallstones Patient Disposition: Home, Self-Care Additional Instructions: No acute or emergent abnormalities in urine or blood testing The ultrasound showed that you do have gallstones in the gallbladder but no sign of infection or blockage now It is possible that gallstones are causing some of her problems with the abdominal pain at night, it may also be stomach acid so take the medication prescribed by your doctor for that Follow with primary doctor for further evaluation and possible referral to a surgeon Return any time any worse condition or any concerns If you get the pain again you can try Motrin or Tylenol as well as the acid blocking agents Prescriptions: New ibuprofen 600 mg tablet 600 mg PO Q6H PRN (Reason: pain) Qty: 20 0RF No Action cyclobenzaprine 10 mg tablet 10 mg PO TID PRN (Reason: muscle spasm) Qty: 14 0RF prednisone 20 mg tablet 60 mg PO DAILY 4 Days Qty: 12 0RF jcglptvdpk-zzispilxohafv-bkwo 50-325-40 mg tablet 1 tab PO Q6H PRN (Reason: pain) Qty: 20 0RF ondansetron 4 mg tablet,disintegrating 4 mg PO Q8H PRN (Reason: nausea and vomiting) Qty: 20 0RF azithromycin 250 mg tablet 250 mg PO DAILY 4 Days Qty: 4 0RF Rx Instructions: start 3/2 Stand Alone Forms: Work/School Release Discharge Date/Time: 03/21/22 12:01
== END 2022-03-21 12:01 | disposition home or self-care (01) ==
PROVIDERS: Emergency Provider Emergency Medicine; PCP Internal Medicine
DX: K80.20 Calculus of gallbladder without cholecystitis without obstruction (principal); R10.13 Epigastric pain; G35 Multiple sclerosis
CPT/HCPCS: 36415; 80053; 81003; 81025; 83690; 85025; 99282; 99283

== ENCOUNTER 2022-04-05 13:54 | Inpatient (IN) | payer MEDICAID, SELFPAY ==
--- NOTE | ~2022-04-05 | CT_ITS ---
EXAMINATION: CT ABDOMEN AND PELVIS WITH CONTRAST CLINICAL INFORMATION: Right upper quadrant abdominal pain, nausea, vomiting. Rule out CBD stone. COMPARISON: Ultrasound 04/05/2022. CT abdomen 04/03/2020 TECHNIQUE: Multidetector volumetric images were obtained from the superior aspect of the liver through the pubic symphysis following administration 85 mL of Omnipaque 350 intravenous contrast. Sagittal and coronal reformatted images were obtained on the technologist's workstation. Oral contrast: No This CT examination was performed using dose optimization techniques as appropriate, variously including the following: *Automated exposure control *Adjustment of mA and/or kV according to patient size (this includes techniques or standardized protocols for targeted exams where dose is matched to indication/reason for exam; i.e. extremities or head) *Use of iterative reconstruction technique DLP: 715 mGy-cm FINDINGS: LUNG BASES: The visualized lung bases are unremarkable. LIVER, GALLBLADDER, AND BILIARY TREE: Right lobe spans 15.8 cm. Slightly low-attenuation of the liver with respect to spleen, may reflect mild steatosis. No focal liver lesions. Mild intrahepatic biliary duct dilatation. CBD is dilated measuring 1.1 cm. No radiodense intraluminal filling defects identified. Gallbladder has been evaluated by ultrasound today. The gallstones seen on today's ultrasound is not clearly evident on CT. There is gradient density within the gallbladder, could reflect bile/sludge/gravel.. No obvious gallbladder wall thickening, or obvious pericholecystic inflammatory changes. PANCREAS: Unremarkable. No acute inflammatory changes. No pancreatic duct dilatation. SPLEEN: Unremarkable. ADRENAL GLANDS: Unremarkable. KIDNEYS AND URETERS: The kidneys are normal in size, shape, and attenuation. No hydronephrosis, hydroureter, or calculi seen. No perinephric stranding. BLADDER: Unremarkable. GASTROINTESTINAL TRACT: The small and large bowel are unremarkable. The appendix is unremarkable. ABDOMINAL WALL: No significant hernia is appreciated. LYMPH NODES: No adenopathy seen. VASCULAR: Normal caliber aorta. PELVIC VISCERA: Retroverted uterus. No adnexal masses seen. OSSEOUS STRUCTURES: No acute or suspicious findings. CT/CT abdomen pelvis w con IMPRESSION: 1. Gallbladder has been better evaluated on the ultrasound obtained today. Patient's known cholelithiasis seen on the today's ultrasound is not clearly evident on CT. Layering density flat bile/sludge/gravel. No CT findings of acute cholecystitis. 2. Mild intrahepatic biliary duct dilatation. CBD is dilated measuring 1.1 cm. No radiodense filling defects identified by CT. Cannot exclude intraluminal filling defects/small stones or other obstructing lesion. Consider MRCP for evaluation. 3. Question hepatic steatosis. Fleischner guidelines were followed.
--- NOTE | ~2022-04-05 | US_ITS ---
EXAMINATION: US ABDOMEN LIMITED CLINICAL INFORMATION: Right upper quadrant pain with elevated LFTs. Evaluate for obstruction COMPARISON: RIGHT upper quadrant abdominal ultrasound 03/18/2022. TECHNIQUE: Limited right upper quadrant abdominal ultrasound assessment gallbladder and common bile duct was performed FINDINGS: PANCREAS: Not imaged. LIVER: Not evaluated. GALLBLADDER: Multiple shadowing stones in the gallbladder fundus. Gallbladder wall thickness measures just under 3 mm, at the upper limits normal. No pericholecystic fluid. The patient was tender to scanning in the region of the gallbladder per technologist report. COMMON BILE DUCT: Dilated measuring 1.1 cm in diameter, previously 0.5 cm. The distal CBD is obscured by bowel gas precluding its assessment. RIGHT KIDNEY: Not imaged US/US abdomen limited IMPRESSION: 1 Cholelithiasis. No specific sonographic findings of acute cholecystitis. 2. Extra hepatic biliary ductal dilation with the visualized CBD measuring up to 1.1 cm in diameter, previously nondilated. The distal CBD is obscured by bowel gas precluding its assessment. Cannot exclude obstructing CBD stone or other distal obstructing lesion. Consider MRCP for assessment.
--- NOTE | ~2022-04-05 | FL_ITS ---
EXAMINATION: XR FLUOROSCOPY WITH IMAGES CLINICAL INFORMATION: Cholelithiasis on ultrasound. COMPARISON: Ultrasound abdomen 04/05/[address] abdomen pelvis 04/05/2022. TECHNIQUE: Fluoroscopy performed by Dr. Lubna Salcido Fluoroscopy time: 98.7 seconds. Cumulative Dose: 24.66 mGy. IMAGES: 10. FINDINGS: There are several images obtained of the right upper quadrant during ERCP. There is contrast opacifying the common bile duct and common hepatic duct. There are multiple small filling defects seen in the gallbladder. There is a small filling defect at the common bile duct junction, question small stone versus air bubble. Also visualized is an inflated balloon in the distal CBD. Subsequent images reveal clear CBD. FL/FL guidance in OR IMPRESSION: ERCP performed in the OR reveals multiple gallstones. There is a small filling defect in the proximal CBD/cystic duct junction, question stone versus air bubble. Subsequent and last image reveals clear CBD.
[2022-04-05 14:28] VITALS: BP 138/65; PULSE 69; RESP 18; TEMP 36; O2SAT 98; BMI 34.3
[2022-04-05 14:41] LABS: MANUAL DIFF FLAG NO
[2022-04-05 14:42] LABS: Basophils Percent Auto 0.5 % (0-2); Hematocrit 36.9 % (37.0-47.0); Hemoglobin 12.5 g/dl (12.0-16.0); Imm Gran Abs Auto 0.01 X10*3/uL (0.00-0.03); Imm Gran Pct Auto 0.2 % (0.0-0.4); Lymphocytes Absolute Auto 1.3 X10*3/uL (1.2-4.9); Lymphocytes Percent Auto 30.9 % (20-40); Mean Corpuscular HGB Conc 33.9 g/dl (31.0-35.0); Mean Corpuscular Hemoglobin 29.6 pg (27.0-33.0); Mean Corpuscular Volume 87.2 fL (80.0-98.0); Mean Platelet Volume 9.2 fL (9.4-12.3); Monocytes Absolute Auto 0.3 X10*3/uL (0.1-1.2); Monocytes Percent Auto 7.9 % (2-11); Neutrophils Absolute Auto 2.5 x10*3/uL (2.0-8.3); Neutrophils Percent Auto 59.5 % (45-73); Platelet Count 280 X10*3/uL (160-400); Red Blood Count 4.23 X10*6/uL (4.20-5.50); Red Cell Distribution Width 12.6 % (11.0-16.0); White Blood Count 4.2 X10*3/uL (4.8-10.8)
[2022-04-05 15:04] LABS: Anion Gap 14 (12-20); Blood Urea Nitrogen 10 mg/dL (9-16); Calcium 9.2 mg/dL (8.4-10.2); Carbon Dioxide 26 mmol/L (22-29); Chloride 106 mmol/L (96-108); Creatinine Clr Calc Pharmacy 112.2; Estimated Glomerular Filt Rate > 60; Glucose Random 96 mg/dL (60-115); Potassium 4.1 mmol/L (3.3-5.1); Sodium 142 mmol/L (135-145)
[2022-04-05 15:38] LABS: Alanine Aminotransferase 1086 U/L (0-31); Albumin Level 4.6 g/dL (3.5-5.0); Alkaline Phosphatase 180 U/L (39-117); Aspartate Amino Transferase 955 U/L (5-31); Bilirubin Direct 1.5 mg/dL (0.0-0.5); Bilirubin Total 2.7 mg/dL (0.0-1.0); Total Protein 7.3 g/dL (6.5-8.0)
[2022-04-05 16:25] LABS: COVID-19 Test Negative (Negative); IDNOW Serial# 9DB6401D
--- NOTE | 2022-04-05 16:50 | ED_ITS ---
HPI - Abdominal Pain General Chief Complaint: Abdominal Pain <SHANNEN Peres Last Filed: 04/05/22 18:23> Stated Complaint: GALLBLADDER ISSUES <SHANNEN Peres Last Filed: 04/05/22 18:23> Time Seen by Provider: 04/05/22 14:56 <SHANNEN Peres Last Filed: 04/05/22 18:23> Source: patient <SHANNEN Peres Last Filed: 04/05/22 18:23> Mode of arrival: ambulatory <SHANNEN Peres Last Filed: 04/05/22 18:23> History of Present Illness HPI narrative: 21-year-old female with a past medical history of anxiety, MS, emy lithiasis, presenting to the ED complaining of right upper quadrant abdominal pain beginning last night at 11:30 with associated nausea and vomiting. Admits to similar symptoms in the past however pain worsened last night. Has surgery appointment in April for probable cholecystectomy. Denies fever, chills, inability to tolerate p.o., dysuria/hematuria <SHANNEN Peres Last Filed: 04/05/22 18:23> MD elicited complaint: abdominal pain <SHANNEN Peres Last Filed: 04/05/22 18:23> Pertinent past history: none <SHANNEN Peres Last Filed: 04/05/22 18:23> Onset (ago): hour(s) <SHANNEN Peres Last Filed: 04/05/22 18:23> Related Data Home Medications: Home Medications Medication Instructions Recorded Confirmed vit no.133-ferrous 1 tab PO DAILY 04/05/22 04/05/22 fumarate 28 mg-folic acid 800 mcg tablet () Previous Rx's Medication Instructions Recorded ibuprofen 600 mg tablet 600 mg PO Q6H PRN pain #20 tabs 03/21/22 <SHANNEN Peres Last Filed: 04/05/22 18:23> Allergies/Adverse Reactions: Allergies Allergy/AdvReac Type Severity Reaction Status Date / Time amoxicillin [AMOXICILLIN] Allergy Severe FACIAL AND Verified 04/11/21 02:18 THROAT SWELLING Penicillins [PENICILLINS] Allergy Unknown SWELLING Verified 04/11/21 02:18 <SHANNEN Peres - Last Filed: 04/05/22 18:23> Review of Systems Review of Systems Constitutional: No Fever, No Chills, No Fatigue, No Malaise ENT/Mouth: No Ear Pain, No Nasal Congestion, No Hoarseness, No sore throat, No Rhinorrhea, No Swallowing Difficulty Eyes: No Eye Pain, No Swelling, No Redness, No Vision Changes Cardiovascular: No Chest Pain, No SOB, No Edema, No Palpitations Respiratory: No Cough, No Sputum,No Dyspnea Gastrointestinal: + Nausea, + Vomiting, No Diarrhea, No Constipation, + Abdominal pain Genitourinary: No irregular bleeding, No Dysuria, No Urinary Frequency, No Hematuria, No Flank Pain Musculoskeletal: No joint pain, No Myalgias, No Joint Swelling Skin: No Skin Lesions, No rash Neuro: No Weakness, No Headache <SHANNEN Perse - Last Filed: 04/05/22 18:23> Yes all other systems are reviewed and are negative <SHANNEN Peres - Last Filed: 04/05/22 18:23> Constitutional: Reports as per HPI <SHANNEN Peres - Last Filed: 04/05/22 18:23> PMFSH Past Medical History Attestation statement: The following information was validated with the patient. 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 Fracture of right lower leg Multiple sclerosis <SHANNEN Peres - Last Filed: 04/05/22 18:23> Social History Social History: Social History Household Members: Significant Other Housing: Apartment Do you presently have visiting nurse or other home services: No Alcohol intake: current Alcohol intake frequency: holidays/special occasions only Advance Directives: No Advance Directives Information Provided: Yes service: No Current occupational status: employed <SHANNEN Peres - Last Filed: 04/05/22 18:23> Physical Exam ED Vital Signs: Vital Signs - 24 hr 04/05/22 14:28 Temperature 96.8 F Pulse Rate 69 Respiratory Rate 18 Blood Pressure 138/65 Pulse Oximetry 98 Oxygen Delivery Method Room Air BMI result Body Mass Index 34.3 <SHANNEN Peres - Last Filed: 04/05/22 18:23> Vital Signs - 24 hr 04/05/22 14:28 Temperature 96.8 F Pulse Rate 69 Respiratory Rate 18 Blood Pressure 138/65 Pulse Oximetry 98 Oxygen Delivery Method Room Air BMI result Body Mass Index 34.3 <Laya Pyle NP - Last Filed: 04/05/22 19:51> Const General: cooperative, healthy appearing and no acute distress <SHANNEN Peres - Last Filed: 04/05/22 18:23> Orientation/consciousness: patient oriented x3 <SHANNEN Peres - Last Filed: 04/05/22 18:23> Limitations: no limitations <SHANNEN Peres - Last Filed: 04/05/22 18:23> HENMT Head: Yes normal to inspection and Yes atraumatic <SHANNEN Peres - Last Filed: 04/05/22 18:23> Ears: hearing grossly normal bilaterally <SHANNEN Peres - Last Filed: 04/05/22 18:23> General nose exam: Normal external nose present <SHANNEN Peres - Last Filed: 04/05/22 18:23> Face and sinus: Yes normal facial exam <SHANNEN Peres - Last Filed: 04/05/22 18:23> Eyes General: appearance normal, both eyes and all related structures <SHANNEN Peres - Last Filed: 04/05/22 18:23> EOM: EOMs intact bilaterally <SHANNEN Peres - Last Filed: 04/05/22 18:23> Neck Neck: Yes normal visual inspection and Yes no meningeal signs <SHANNEN Peres - Last Filed: 04/05/22 18:23> Resp Effort & Inspection: normal respiratory effort and no respiratory distress <SHANNEN Peres - Last Filed: 04/05/22 18:23> Auscultation: clear to auscultation bilaterally <SHANNEN Peres - Last Filed: 04/05/22 18:23> Cardio Rate: regular rate <SHANNEN Peres - Last Filed: 04/05/22 18:23> Heart sounds: S1 normal heart sound present and S2 normal heart sound present <Ceci Judd PA - Last Filed: 04/05/22 18:23> GI Inspection: Yes normal to inspection <Ceci Judd PA - Last Filed: 04/05/22 18:23> Palpation (GI): Soft to palpation, Tenderness to palpation present (GI) in the RUQ and Calabrese's sign positive; with no rebound tenderness, Guarding due to palpation present (GI) in the RUQ and not rigid <Ceci Judd PA - Last Filed: 04/05/22 18:23> General: Yes no CVA tenderness <Ceci Judd PA - Last Filed: 04/05/22 18:23> Back/Spine/Pelvis Back: no CVA tenderness <Ceci Judd PA - Last Filed: 04/05/22 18:23> Skin Rashes: no rashes <Ceci Judd PA - Last Filed: 04/05/22 18:23> Wounds: no wounds <Ceci Judd PA - Last Filed: 04/05/22 18:23> Neuro General: patient oriented x3, tone normal and no meningeal signs <Ceci Judd PA - Last Filed: 04/05/22 18:23> Gait exam (Neuro): Normal gait present <Ceci Judd PA - Last Filed: 04/05/22 18:23> Extrem General: Yes normal to inspection <Ceci Judd PA - Last Filed: 04/05/22 18:23> Course Course Course Narrative: -mild leukopenia of 4.2, elevated bilirubin to 2.7, direct bili 1.5, AST 955 and ALT 1086. Alk phos 180 > 1706--ultrasound currently pending at this time, case discussed with General surgery Dr. Whitley who recommended CT with IV contrast 1740--US abdomen limited IMPRESSION: 1 Cholelithiasis. No specific sonographic findings of acute cholecystitis. 2. Extra hepatic biliary ductal dilation with the visualized CBD measuring up to 1.1 cm in diameter, previously nondilated. The distal CBD is obscured by bowel gas precluding its assessment. Cannot exclude obstructing CBD stone or other distal obstructing lesion. Consider MRCP for assessment. >> GI Dr. Calvo aware > Dr. Whitley plans to admit for further management -1829-- ED care transferred to [facility] pending CT and admit <SHANNEN Peres - Last Filed: 04/05/22 18:23> Reevaluation(s) Reevaluation #1: IMPRESSION: 1. Gallbladder has been better evaluated on the ultrasound obtained today. Patient's known cholelithiasis seen on the today's ultrasound is not clearly evident on CT. Layering density flat bile/sludge/gravel. No CT findings of acute cholecystitis. ? 2. Mild intrahepatic biliary duct dilatation. CBD is dilated measuring 1.1 cm. No radiodense filling defects identified by CT. Cannot exclude intraluminal filling defects/small stones or other obstructing lesion. Consider MRCP for evaluation. ? 3. Question hepatic steatosis. ? Fleischner guidelines were followed. Patient already admitted by general surgery-dr whitley <Laya Pyle NP - Last Filed: 04/05/22 19:51> MDM - Abdominal Pain MDM Narrative Medical decision making narrative: 21-year-old female with a past medical history of anxiety, MS, cholelithiasis, presenting to the ED complaining of right upper quadrant abdominal pain beginning last night at 11:30 with associated nausea and vomiting. On exam vital signs stable, appears in pain, nontoxic, abdomen soft with RUQ tenderness and guarding, no rebound, no CVA tenderness. Concern for acute cholecystitis vs CBD stone/obstruction vs pancreatitis. Lower suspicion for renal stone/pyelo or diverticulitis/appendicitis Low suspicion for severe sepsis Plan: Labs, abdomen ultrasound, pain management <SHANNEN Peres - Last Filed: 04/05/22 18:23> Differential Diagnosis Differential diagnosis: Likely abdominal pain, gastritis and pancreatitis <SHANNEN Peres - Last Filed: 04/05/22 18:23> Medical Records Attestation: I reviewed the patient's medical records. <SHANNEN Peres Last Filed: 04/05/22 18:23> Lab Data Attestation: I reviewed the patient's lab results. <SHANNEN Peres Last Filed: 08/23/22 18:23> Result diagrams: : 04/05/22 14:37 04/05/22 14:37 <SHANNEN Peres - Last Filed: 04/05/22 18:23> Labs: Lab Results 04/05/22 04/05/22 04/05/22 Range/Units 14:37 14:37 16:07 WBC 4.2 L (4.8-10.8) X10*3/uL RBC 4.23 (4.20-5.50) X10*6/uL Hgb 12.5 (12.0-16.0) g/dl Hct 36.9 L (37.0-47.0) % MCV 87.2 (80.0-98.0) fL MCH 29.6 (27.0-33.0) pg MCHC 33.9 (31.0-35.0) g/dl RDW 12.6 (11.0-16.0) % Plt Count 280 (160-400) X10*3/uL MPV 9.2 L (9.4-12.3) fL Immature Gran % (Auto) 0.2 (0.0-0.4) % Neut % (Auto) 59.5 (45-73) % Lymph % (Auto) 30.9 (20-40) % [place] % (Auto) 7.9 (2-11) % Eos % (Auto) 1.0 (0-4) % Baso % (Auto) 0.5 (0-2) % Lymph # (Auto) 1.3 (1.2-4.9) X10*3/uL [place] # (Auto) 0.3 (0.1-1.2) X10*3/uL Eos # (Auto) 0.0 (0.0-0.4) X10*3/uL Baso # (Auto) 0.0 (0.0-0.2) X10*3/uL Abs Immat Gran (auto) 0.01 (0.00-0.03) X10*3/uL Absolute Neuts (auto) 2.5 (2.0-8.3) x10*3/uL Absolute Nucleated RBC 0.000 (0.0-0.012) X10*3/uL Nucleated RBC % (auto) 0.0 (0.0-0.2) /100WBC Sodium 142 (135-145) mmol/L Potassium 4.1 (3.3-5.1) mmol/L Chloride 106 (96-108) mmol/L Carbon Dioxide 26 (22-29) mmol/L Anion Gap 14 (12-20) BUN 10 (9-16) mg/dL Creatinine 0.82 (0.5-1.4) mg/dL Estim Creat Clear Calc 112.2 Estimated GFR > 60 Random Glucose 96 (60-115) mg/dL Calcium 9.2 (8.4-10.2) mg/dL Total Bilirubin 2.7 H (0.0-1.0) mg/dL Direct Bilirubin 1.5 H (0.0-0.5) mg/dL AST 955 H (5-31) U/L ALT 1086 H (0-31) U/L Alkaline Phosphatase 180 H D (39-117) U/L Total Protein 7.3 (6.5-8.0) g/dL Albumin 4.6 (3.5-5.0) g/dL Lipase 39 (8-78) U/L Beta HCG, Quant < 2 mIU/mL COVID-19 (MARANDA) Negative (Negative) COVID-19 Clin Com See Note <SHANNEN Peres - Last Filed: 04/05/22 18:23> Lab Results 04/05/22 04/05/22 04/05/22 Range/Units 14:37 14:37 16:07 WBC 4.2 L (4.8-10.8) X10*3/uL RBC 4.23 (4.20-5.50) X10*6/uL Hgb 12.5 (12.0-16.0) g/dl Hct 36.9 L (37.0-47.0) % MCV 87.2 (80.0-98.0) fL MCH 29.6 (27.0-33.0) pg MCHC 33.9 (31.0-35.0) g/dl RDW 12.6 (11.0-16.0) % Plt Count 280 (160-400) X10*3/uL MPV 9.2 L (9.4-12.3) fL Immature Gran % (Auto) 0.2 (0.0-0.4) % Neut % (Auto) 59.5 (45-73) % Lymph % (Auto) 30.9 (20-40) % [place] % (Auto) 7.9 (2-11) % Eos % (Auto) 1.0 (0-4) % Baso % (Auto) 0.5 (0-2) % Lymph # (Auto) 1.3 (1.2-4.9) X10*3/uL [place] # (Auto) 0.3 (0.1-1.2) X10*3/uL Eos # (Auto) 0.0 (0.0-0.4) X10*3/uL Baso # (Auto) 0.0 (0.0-0.2) X10*3/uL Abs Immat Gran (auto) 0.01 (0.00-0.03) X10*3/uL Absolute Neuts (auto) 2.5 (2.0-8.3) x10*3/uL Absolute Nucleated RBC 0.000 (0.0-0.012) X10*3/uL Nucleated RBC % (auto) 0.0 (0.0-0.2) /100WBC Sodium 142 (135-145) mmol/L Potassium 4.1 (3.3-5.1) mmol/L Chloride 106 (96-108) mmol/L Carbon Dioxide 26 (22-29) mmol/L Anion Gap 14 (12-20) BUN 10 (9-16) mg/dL Creatinine 0.82 (0.5-1.4) mg/dL Estim Creat Clear Calc 112.2 Estimated GFR > 60 Random Glucose 96 (60-115) mg/dL Calcium 9.2 (8.4-10.2) mg/dL Total Bilirubin 2.7 H (0.0-1.0) mg/dL Direct Bilirubin 1.5 H (0.0-0.5) mg/dL AST 955 H (5-31) U/L ALT 1086 H (0-31) U/L Alkaline Phosphatase 180 H D (39-117) U/L Total Protein 7.3 (6.5-8.0) g/dL Albumin 4.6 (3.5-5.0) g/dL Lipase 39 (8-78) U/L Beta HCG, Quant < 2 mIU/mL COVID-19 (MARANDA) Negative (Negative) COVID-19 Clin Com See Note <Laya Pyle NP - Last Filed: 04/05/22 19:51> Critical Care Time Critical Care Time Critical Care Time: Yes <SHANNEN Peres - Last Filed: 04/05/22 18:23> Total Critical Care Time: 35 <SHANNEN Peres - Last Filed: 04/05/22 18:23> Attestation: I have personally provided critical care time exclusive of time spent on separately billable procedures. Time includes review of lab data, radiology results, discussion with consultants, and monitoring for potential decompensat ion. Intervention performed as documented. <SHANNEN Peres - Last Filed: 04/05/22 18:23> Discharge Plan Discharge Clinical Impression: Common bile duct stone <SHANNEN Peres - Last Filed: 04/05/22 18:23> Patient Disposition: Admitted As Inpatient <SHANNEN Peres - Last Filed: 04/05/22 18:23>
--- NOTE | 2022-04-05 16:58 | ECG_ITS ---
Test Reason : GALLBLADDER Blood Pressure : / mmHG Vent. Rate : 089 BPM Atrial Rate : 089 BPM P-R Int : 148 ms QRS Dur : 074 ms QT Int : 370 ms P-R-T Axes : 063 044 022 degrees QTc Int : 450 ms Normal sinus rhythm with sinus arrhythmia Normal ECG When compared with ECG of 03-JUL-2020 20:11, No significant change was found Referred By: Ceci Judd Electronically Signed By:BABAR GARCIA
[2022-04-05 17:15] LABS: Lipase 39 U/L (8-78)
--- NOTE | 2022-04-05 17:37 | PHA.MEDREC ---
Pharmacy Consult ? Medication Reconciliation Pharmacy has completed the medication reconciliation. Patient states she only uses ibuprofen for pain and takes a daily . For the she was not sure of the concentrations/ doses.
[2022-04-05 17:40] LABS: HCG Quantitative < 2 mIU/mL
[2022-04-05] MEDS: ondansetron HCL 4 MG/2 ML VIAL IVPUSH (17:50)
[2022-04-05] MEDS: Morphine Sulfate 2 MG/ML CARTRIDGE IVPUSH (17:55)
[2022-04-05] MEDS: 0.9 % Sodium Chloride 1,000 ML 999 ML IV (18:00)
--- NOTE | 2022-04-05 18:09 | P.HPGS_ITS ---
History of Present Illness History of Present Illness Date of Service: 04/07/22 Chief complaint: gallstones, elevated LFTs Narrative: Nataly Mart is a 21 year old female who came to the ED today because of abdominal pain. She describes onset at about 11 pm last night. She says the pain is constant and located on the rughtupper quadrant and epigastric areas. She describes having a little vomitting today but denies other GI complaints. She has had similar pain on and off for a few months now. She had an US done as an outpt 3 weeks ago showing gallstones without cholecystitis. She was diagnosed to have MS in 2019. She says this is wellcontrolled so far. She says she is not on any meds for this. She is following a neurologist in [place]. She just delivered a baby months ago. Review of Systems Constitutional: Constitutional: Denies chills and Denies fever(s) Cardiovascular: Cardiovascular: Denies chest pain, Denies dyspnea and Denies dyspnea on exertion Respiratory: Respiratory: Denies cough, Denies dyspnea and Denies dyspnea on exertion Gastrointestinal: Gastrointestinal: Denies hematochezia and Denies change in bowel habits Genitourinary: Genitourinary: Denies hematuria Musculoskeletal: Musculoskeletal: Denies back pain and Denies limited range of motion Neurologic: Denies focal weakness and Denies convulsions Psychiatric: Psychiatric: Denies depression and Denies mood swings PMFSH Past Medical History Medical History Anxiety 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 Fracture of right lower leg Multiple sclerosis Social History Social History Household Members: Significant Other and Other Household Members Other:: son Housing: Apartment Do you presently have visiting nurse or other home services: No Alcohol intake: current Alcohol intake frequency: does not drink Patient Tobacco Use Status: Never used Tobacco service: No Current occupational status: employed Meds Allergies Allergy/AdvReac Type Severity Reaction Status Date / Time amoxicillin [AMOXICILLIN] Allergy Severe FACIAL AND Verified 04/11/21 02:18 THROAT SWELLING Penicillins [PENICILLINS] Allergy Unknown SWELLING Verified 04/11/21 02:18 Active Medications: Current Medications Pharmacy Consult (Consult Rx Perform Med Rec) 1 each MISCELLANE ONCE PRN PRN Reason: Consult order Home Medications Medication Instructions Recorded Confirmed Last Taken Type vit no.133-ferrous 1 tab PO DAILY 04/05/22 04/05/22 Unknown History fumarate 28 mg-folic acid 800 mcg tablet () Physical Exam Vital Signs: Vital Signs: Last Vital Signs Temp 96.8 F 04/05/22 14:28 Pulse 69 04/05/22 14:28 Resp 18 04/05/22 14:28 BP 138/65 04/05/22 14:28 Pulse Ox 98 04/05/22 14:28 O2 Del Method 04/05/22 14:28 BMI result Body Mass Index 34.3 Const: Other: looks well General: comfortable and no acute distress Orientation/consciousness: patient oriented x3 Neck: Neck: Yes no lymphadenopathy Resp: Auscultation: clear to auscultation bilaterally Cardio: Rhythm: regular rhythm GI: Other: some tenderness, epigastric area, right upper quadrant, no Calabrese's sign, no guarding, no rebound Palpation (GI): Soft to palpation, nontender and no guarding Neuro: General: patient oriented x3 Results Results Labs: Short CBC 04/05/22 Range/Units 14:37 WBC 4.2 L (4.8-10.8) X10*3/uL Hgb 12.5 (12.0-16.0) g/dl Hct 36.9 L (37.0-47.0) % Plt Count 280 (160-400) X10*3/uL BMP 04/05/22 14:37 Sodium 142 Potassium 4.1 Chloride 106 Carbon Dioxide 26 BUN 10 Creatinine 0.82 Calcium 9.2 Liver Function 04/05/22 Range/Units 14:37 Total Bilirubin 2.7 H (0.0-1.0) mg/dL Direct Bilirubin 1.5 H (0.0-0.5) mg/dL AST 955 H (5-31) U/L ALT 1086 H (0-31) U/L Alkaline Phosphatase 180 H D (39-117) U/L Albumin 4.6 (3.5-5.0) g/dL Additional studies: Laboratory Results WBC 4.2 X10*3/uL (4.8-10.8) L 04/05/22 14:37 RBC 4.23 X10*6/uL (4.20-5.50) 04/05/22 14:37 Hgb 12.5 g/dl (12.0-16.0) 04/05/22 14:37 Hct 36.9 % (37.0-47.0) L 04/05/22 14:37 MCV 87.2 fL (80.0-98.0) 04/05/22 14:37 MCH 29.6 pg (27.0-33.0) 04/05/22 14:37 MCHC 33.9 g/dl (31.0-35.0) 04/05/22 14:37 RDW 12.6 % (11.0-16.0) 04/05/22 14:37 Plt Count 280 X10*3/uL (160-400) 04/05/22 14:37 MPV 9.2 fL (9.4-12.3) L 04/05/22 14:37 Immature Gran % (Auto) 0.2 % (0.0-0.4) 04/05/22 14:37 Neut % (Auto) 59.5 % (45-73) 04/05/22 14:37 Lymph % (Auto) 30.9 % (20-40) 04/05/22 14:37 [place] % (Auto) 7.9 % (2-11) 04/05/22 14:37 Eos % (Auto) 1.0 % (0-4) 04/05/22 14:37 Baso % (Auto) 0.5 % (0-2) 04/05/22 14:37 Lymph # (Auto) 1.3 X10*3/uL (1.2-4.9) 04/05/22 14:37 [place] # (Auto) 0.3 X10*3/uL (0.1-1.2) 04/05/22 14:37 Eos # (Auto) 0.0 X10*3/uL (0.0-0.4) 04/05/22 14:37 Baso # (Auto) 0.0 X10*3/uL (0.0-0.2) 04/05/22 14:37 Abs Immat Gran (auto) 0.01 X10*3/uL (0.00-0.03) 04/05/22 14:37 Absolute Neuts (auto) 2.5 x10*3/uL (2.0-8.3) 04/05/22 14:37 Absolute Nucleated RBC 0.000 X10*3/uL (0.0-0.012) 04/05/22 14:37 Nucleated RBC % (auto) 0.0 /100WBC (0.0-0.2) 04/05/22 14:37 Sodium 142 mmol/L (135-145) 04/05/22 14:37 Potassium 4.1 mmol/L (3.3-5.1) 04/05/22 14:37 Chloride 106 mmol/L (96-108) 04/05/22 14:37 Carbon Dioxide 26 mmol/L (22-29) 04/05/22 14:37 Anion Gap 14 (12-20) 04/05/22 14:37 BUN 10 mg/dL (9-16) 04/05/22 14:37 Creatinine 0.82 mg/dL (0.5-1.4) 04/05/22 14:37 Estim Creat Clear Calc 112.2 04/05/22 14:37 Estimated GFR > 60 04/05/22 14:37 Random Glucose 96 mg/dL (60-115) 04/05/22 14:37 Calcium 9.2 mg/dL (8.4-10.2) 04/05/22 14:37 Total Bilirubin 2.7 mg/dL (0.0-1.0) H 04/05/22 14:37 Direct Bilirubin 1.5 mg/dL (0.0-0.5) H 04/05/22 14:37 AST 955 U/L (5-31) H 04/05/22 14:37 ALT 1086 U/L (0-31) H 04/05/22 14:37 Alkaline Phosphatase 180 U/L (39-117) H D 04/05/22 14:37 Total Protein 7.3 g/dL (6.5-8.0) 04/05/22 14:37 Albumin 4.6 g/dL (3.5-5.0) 04/05/22 14:37 Lipase 39 U/L (8-78) 04/05/22 14:37 Beta HCG, Quant < 2 mIU/mL 04/05/22 14:37 COVID-19 (MARANDA) Negative (Negative) 04/05/22 16:07 COVID-19 Clin Com See Note 04/05/22 16:07 Impressions Abdomen Ultrasound 04/05/22 16:25 IMPRESSION: 1 Cholelithiasis. No specific sonographic findings of acute cholecystitis. 2. Extra hepatic biliary ductal dilation with the visualized CBD measuring up to 1.1 cm in diameter, previously nondilated. The distal CBD is obscured by bowel gas precluding its assessment. Cannot exclude obstructing CBD stone or other distal obstructing lesion. Consider MRCP for assessment. Assessment and Plan (1) Common bile duct stone: Status: Acute Her imaging studies gallstones without acute cholecystitis, but show suggestion of CBD obstruction, likely from a gallstone. Her bilirubin and LFTs are elevated. She does not have leukocytosis. She will be admitted for likely ERCP. I have explained to her the option of proceeding with cholecystectomy prior to discharge after her CBD is cleared. A gastroenterology consult has therefore been requested for the need for ERCP. She has a benign exam otherwise and looks well and nontoxic. I will not start her on antibiotics at this time. Quality Stroke Does the patient have a stroke diagnosis?: No VTE Prior VTE?: No VTE Risk Level:: Medical - low VTE Device Contraindication: Treatment Not Indicated VTE Drug Contraindication: Treatment Not Indicated Procedures Date of Service Date of Service: 04/05/22
[2022-04-05] MEDS: iohexoL 350 MG/ML 100 ML INFUS..BTL IV (18:13)
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
[2022-04-05 21:04] LABS: Appearance Urine Clear; Color Urine Dark Yellow; Glucose Urine UA Negative (Negative); Leukocyte Esterase Urine Negative (Negative); Nitrite Urine Negative (Negative); PH 5.5 (5.0-8.0); Specific Gravity - Urine >= 1.030 (1.005-1.025); Urine Blood Negative (Negative); Urine Ketones Negative (Negative); Urine Protein Negative (Neg-Trace)
[2022-04-05 21:06] VITALS: BP 115/74; PULSE 92; RESP 18; TEMP 36.8; O2SAT 100
[2022-04-05] MEDS: 0.9 % Sodium Chloride Flush 3 ML SYRINGE IVFLUSH (21:24)
[2022-04-05] MEDS: 0.9 % Sodium Chloride 1,000 ML 100 ML IVCONT (21:24)
[2022-04-05 21:30] LABS: UPreg QC Valid YES; Urine Pregnancy NEGATIVE (NEGATIVE)
[2022-04-06] VITALS (14 sets, daily range): BP systolic 107–138; BP diastolic 64–85; PULSE 53–94; RESP 12–18; TEMP 36.2–36.8; O2SAT 95–99; BMI 34.3
[2022-04-06] MEDS: 0.9 % Sodium Chloride 1,000 ML 100 ML IVCONT (04:16)
[2022-04-06 05:04] LABS: Alanine Aminotransferase 1038 U/L (0-31); Alkaline Phosphatase 223 U/L (39-117); Aspartate Amino Transferase 586 U/L (5-31); Total Protein 6.4 g/dL (6.5-8.0)
--- NOTE | 2022-04-06 05:55 | PM.GICN ---
History of Present Illness Data of Consult Service Date: 04/06/22 Requesting physician: Luciano Robb Primary Care Provider: Antelmo Wright MD HPI Reason for consult: cbd obstruction 21 year old female w/ hx of MS who I am seeing for assessment for possible choledocholithiasis. She presents with sudden onset constant, crampy pain in RUQ and epigastrium, 10/10 in severity and associated with nausea and non bloody emesis. She denies fever, sweats, but says urine is darker than normal, stool has appeared normal. appetite is poor, weight stable. pain worse with food and radiates in to the back. She has had pains on and off for months but not as bad as this. Imaging with dilated CBD to 1.1 cm having been normal diameter 3 weeks ago. previous scan also showed gallstones not seen in GB now, so concern is these have migrated to the CBD Review of Systems Review of Systems: Yes all other systems are reviewed and are negative Constitutional: Constitutional: Reports as per HPI, Denies chills and Denies fever(s) Cardiovascular: Cardiovascular: Denies chest pain, Denies dyspnea and Denies dyspnea on exertion Respiratory: Respiratory: Denies cough, Denies dyspnea and Denies dyspnea on exertion Gastrointestinal: Gastrointestinal: Denies hematochezia and Denies change in bowel habits Musculoskeletal: Musculoskeletal: Denies back pain and Denies limited range of motion Neurologic: Denies focal weakness and Denies convulsions Psychiatric: Psychiatric: Denies depression and Denies mood swings PMFSH Past Medical History Medical History Anxiety 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 Fracture of right lower leg Multiple sclerosis Family History Pertinent family history: no fh of gallstones Social History Social History Household Members: Significant Other Housing: Apartment Do you presently have visiting nurse or other home services: No Alcohol intake: current Alcohol intake frequency: does not drink Patient Tobacco Use Status: Never used Tobacco Use of substances other than those prescribed or required for medical reasons: No Are you DNR?: No Advance Directives: No Advance Directives Information Provided: Yes service: No Current occupational status: employed Meds Allergies Allergy/AdvReac Type Severity Reaction Status Date / Time amoxicillin [AMOXICILLIN] Allergy Severe FACIAL AND Verified 04/11/21 02:18 THROAT SWELLING Penicillins [PENICILLINS] Allergy Unknown SWELLING Verified 04/11/21 02:18 Active Medications: Current Medications Sodium Chloride (Ns) 1,000 mls @ 100 mls/hr IVCONT .Q10H [facility] Last Admin: 04/06/22 04:16 Dose: 100 mls/hr Morphine Sulfate (Morphine Sulfate 4 Mg/Ml Cartridge) 3 mg IVPUSH Q3H PRN; Protocol PRN Reason: Pain, Severe (Pain Scale 7-10) Ondansetron HCl (Ondansetron Hcl 4 Mg/2 Ml Vial) 4 mg IVPUSH Q8H PRN PRN Reason: nausea Oxycodone HCl (Oxycodone Hcl Immed Release 5 Mg Tablet) 5 mg PO Q6H PRN PRN Reason: Pain, Moderate (Pain Scale 4-6 Pharmacy Consult (Consult Rx Perform Med Rec) 1 each MISCELLANE ONCE PRN PRN Reason: Consult order Sodium Chloride (0.9 % Sodium Chloride Flush 3 Ml Syringe) 3 ml IVFLUSH QSHIFT [facility] Last Admin: 04/05/22 21:24 Dose: 3 ml Home Medications Medication Instructions Recorded Confirmed Last Taken Type vit no.133-ferrous 1 tab PO DAILY 04/05/22 04/05/22 Unknown History fumarate 28 mg-folic acid 800 mcg tablet () Physical Exam Vital Signs: Vital Signs: Last Vital Signs Temp 98.2 F 04/05/22 21:06 Pulse 92 04/05/22 21:06 Resp 18 04/05/22 21:06 BP 115/74 04/05/22 21:06 Pulse Ox 100 04/05/22 21:06 O2 Del Method 04/05/22 21:06 BMI result Body Mass Index 34.3 Const: Other: looks well General: cooperative, healthy appearing, comfortable and no acute distress Orientation/consciousness: patient oriented x3 Limitations: no limitations HEENT: Head: Yes normal to inspection and Yes atraumatic Ears: hearing grossly normal bilaterally General nose exam: Normal external nose present Face and sinus: Yes normal facial exam Eyes: General: appearance normal, both eyes and all related structures EOM: EOMs intact bilaterally Neck: Neck: Yes normal visual inspection, Yes no lymphadenopathy and Yes no meningeal signs Resp: Effort & Inspection: normal respiratory effort and no respiratory distress Auscultation: clear to auscultation bilaterally Cardio: Rate: regular rate Rhythm: regular rhythm Heart sounds: S1 normal heart sound present and S2 normal heart sound present GI: Inspection: Yes normal to inspection Palpation (GI): Soft to palpation, Tenderness to palpation present (GI) in the RUQ, no guarding and not rigid : General: Yes no CVA tenderness Back/Spine/Pelvis: Back: no CVA tenderness Skin: Rashes: no rashes Wounds: no wounds Neuro: General: patient oriented x3, tone normal and no meningeal signs Gait exam (Neuro): Normal gait present Extrem: General: Yes normal to inspection Results Labs CBC & Chem 7: 04/05/22 14:37 04/05/22 14:37 Labs: Short CBC 04/05/22 Range/Units 14:37 WBC 4.2 L (4.8-10.8) X10*3/uL Hgb 12.5 (12.0-16.0) g/dl Hct 36.9 L (37.0-47.0) % Plt Count 280 (160-400) X10*3/uL BMP 04/05/22 14:37 Sodium 142 Potassium 4.1 Chloride 106 Carbon Dioxide 26 BUN 10 Creatinine 0.82 Calcium 9.2 Liver Function 04/05/22 04/06/22 Range/Units 14:37 04:13 Total Bilirubin 2.7 H 3.0 H (0.0-1.0) mg/dL Direct Bilirubin 1.5 H 2.0 H (0.0-0.5) mg/dL AST 955 H 586 H (5-31) U/L ALT 1086 H 1038 H (0-31) U/L Alkaline Phosphatase 180 H D 223 H D (39-117) U/L Albumin 4.6 4.0 (3.5-5.0) g/dL Urine 04/05/22 Range/Units 20:56 Urine Color Dark Yellow Urine Appearance Clear Urine pH 5.5 (5.0-8.0) Ur Specific [place] >= 1.030 H (1.005-1.025) Urine Protein Negative (Neg-Trace) mg/dL Urine Glucose (UA) Negative (Negative) mg/dL Assessment and Plan (1) Common bile duct stone: Status: Acute Plan 1/ RUQ pain with dilated CBD and marked elevation of LFT, with previously normal CBD 3 weeks ago, concern is a high probability of choledocholithiasis. No evidence of cholangitis at this time. PLAN: 1/ ERCP for clearance of duct prior to cholecystectomy and removal of stones-risks and benefits discussed with patient including risk of pancreatitis, infection, bleeding, perforation vs risks of ongoing pain and cholangitis if CBD remains obstructed. She is happy to proceed. 2/ cont with fluids and analgesia meantime. Procedures Date of Service Date of Service: 04/05/22
--- NOTE | 2022-04-06 08:15 | P.PNGS_ITS ---
Subjective Subjective Date of Service: 04/07/22 Interval history: She says she feels much better this morning With minimal pain ?hungry? Physical Exam Vital Signs: Vital Signs: Last Vital Signs Temp 98.2 F 04/05/22 21:06 Pulse 92 04/05/22 21:06 Resp 18 04/05/22 21:06 BP 115/74 04/05/22 21:06 Pulse Ox 100 04/05/22 21:06 O2 Del Method 04/05/22 21:06 BMI result Body Mass Index 34.3 Const: General: comfortable and no acute distress Resp: Effort & Inspection: normal respiratory effort Cardio: Rate: regular rate GI: Other: Mild tenderness, upper abdomen Palpation (GI): Soft to palpation, not firm and no guarding Objective Data Active Medications Sodium Chloride (Ns) 1,000 mls @ 100 mls/hr IVCONT .Q10H [facility] Last Admin: 04/06/22 04:16 Dose: 100 mls/hr Documented By: ALIX Lactated Ringer's (Lr) 1,000 mls @ 50 mls/hr IVCONT .Q20H [facility] Morphine Sulfate (Morphine Sulfate 4 Mg/Ml Cartridge) 3 mg IVPUSH Q3H PRN; Protocol PRN Reason: Pain, Severe (Pain Scale 7-10) Ondansetron HCl (Ondansetron Hcl 4 Mg/2 Ml Vial) 4 mg IVPUSH Q8H PRN PRN Reason: nausea Oxycodone HCl (Oxycodone Hcl Immed Release 5 Mg Tablet) 5 mg PO Q6H PRN PRN Reason: Pain, Moderate (Pain Scale 4-6 Pharmacy Consult (Consult Rx Perform Med Rec) 1 each MISCELLANE ONCE PRN PRN Reason: Consult order Sodium Chloride (0.9 % Sodium Chloride Flush 3 Ml Syringe) 3 ml IVFLUSH QSHIFT [facility] Last Admin: 04/05/22 21:24 Dose: 3 ml Documented By: YENI Labs CBC & Chem 7: 04/05/22 14:37 04/05/22 14:37 Labs: Laboratory Results - last 24 hr 04/05/22 04/05/22 04/05/22 14:37 14:37 16:07 MCV 87.2 MCH 29.6 MCHC 33.9 RDW 12.6 Plt Count 280 MPV 9.2 L Immature Gran % (Auto) 0.2 Neut % (Auto) 59.5 Lymph % (Auto) 30.9 [facility] % (Auto) 7.9 Eos % (Auto) 1.0 Baso % (Auto) 0.5 Lymph # (Auto) 1.3 [facility] # (Auto) 0.3 Eos # (Auto) 0.0 Baso # (Auto) 0.0 Abs Immat Gran (auto) 0.01 Absolute Neuts (auto) 2.5 Absolute Nucleated RBC 0.000 Nucleated RBC % (auto) 0.0 Anion Gap 14 Estim Creat Clear Calc 112.2 Estimated GFR > 60 Random Glucose 96 Calcium 9.2 Total Bilirubin 2.7 H Direct Bilirubin 1.5 H AST 955 H ALT 1086 H Alkaline Phosphatase 180 H D Total Protein 7.3 Albumin 4.6 Lipase 39 Beta HCG, Quant < 2 Urine Color Urine Appearance Urine pH Ur Specific [place] Urine Protein Urine Glucose (UA) Urine Ketones Urine Blood Urine Nitrite Ur Leukocyte Esterase Urine Test COVID-19 (MARANDA) Negative COVID-19 Clin Com See Note 04/05/22 04/05/22 04/06/22 20:56 20:56 04:13 MCV MCH MCHC RDW Plt Count MPV Immature Gran % (Auto) Neut % (Auto) Lymph % (Auto) [facility] % (Auto) Eos % (Auto) Baso % (Auto) Lymph # (Auto) [facility] # (Auto) Eos # (Auto) Baso # (Auto) Abs Immat Gran (auto) Absolute Neuts (auto) Absolute Nucleated RBC Nucleated RBC % (auto) Anion Gap Estim Creat Clear Calc Estimated GFR Random Glucose Calcium Total Bilirubin 3.0 H Direct Bilirubin 2.0 H AST 586 H ALT 1038 H Alkaline Phosphatase 223 H D Total Protein 6.4 L Albumin 4.0 Lipase Beta HCG, Quant Urine Color Dark Yellow Urine Appearance Clear Urine pH 5.5 Ur Specific [place] >= 1.030 H Urine Protein Negative Urine Glucose (UA) Negative Urine Ketones Negative Urine Blood Negative Urine Nitrite Negative Ur Leukocyte Esterase Negative Urine Test NEGATIVE COVID-19 (MARANDA) COVID-19 Clin Com Procedures Date of Service Date of Service: 04/06/22 Progress Note: A&P Assessment and plan (1) Common bile duct stone: Status: Acute Assessment and Plan: LFTs trending up Seen by Gastroenterology - I have discussed case with Dr. Calvo For ERCP Exam remains benign She understands the plan Looks well otherwise Time Spent With Patient Time: Total time spent is greater than 50% in coordination of care (as documented) at patient's floor/unit and/or counseling patient: Quality Stroke Does the patient have a stroke diagnosis?: No VTE Prior VTE?: No VTE Risk Level:: Medical - low VTE Device Contraindication: N/A - Device Ordered VTE Drug Contraindication: Treatment Not Indicated
[2022-04-06] MEDS: Lactated Ringers 1,000 ML 50 ML IVCONT ×3 (08:28→18:01)
[2022-04-06] MEDS: 0.9 % Sodium Chloride Flush 3 ML SYRINGE IVFLUSH ×2 (08:28→17:23)
[2022-04-06] MEDS: ondansetron HCL 4 MG/2 ML VIAL IVPUSH (11:33)
[2022-04-06] MEDS: Morphine Sulfate 4 MG/ML CARTRIDGE 3 MG IVPUSH (11:37)
--- NOTE | 2022-04-06 13:54 | MHC.CM.PN ---
PATIENT WAS OFF UNIT. SIGNIFICANT OTHER (IN ROOM) GAVE ANSWERS TO ASSESSMENT QUESTIONS. PATIENT IS FULLY INDEPENDENT WITH HER DLS NO DME OR VNA SERVICES. NO HCP ON FILE BUT ONE CAN BE COMPLETED IF PATIENT CHOOSES PATIENT CURRENTLY IN FOR ERCP. CASE MANAGEMENT TO FOLLOW FOR DC PLANS.
[2022-04-06] MEDS: levoFLOXacin 750 MG TABLET PO (14:13)
--- NOTE | 2022-04-06 14:15 | P.CONAN_ITS ---
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 Fracture of right lower leg Multiple sclerosis Family History Family history of problems with anesthesia: No Surgical History History of Problems with Anesthesia: No Social History Social History Household Members: Significant Other Housing: Apartment Do you presently have visiting nurse or other home services: No Alcohol intake: current Alcohol intake frequency: does not drink Patient Tobacco Use Status: Never used Tobacco Use of substances other than those prescribed or required for medical reasons: No Are you DNR?: No Advance Directives: No Advance Directives Information Provided: Yes service: No Current occupational status: employed Meds Allergies Allergy/AdvReac Type Severity Reaction Status Date / Time amoxicillin [AMOXICILLIN] Allergy Severe FACIAL AND Verified 04/11/21 02:18 THROAT SWELLING Penicillins [PENICILLINS] Allergy Unknown SWELLING Verified 04/11/21 02:18 Active Medications: Current Medications Sodium Chloride (Ns) 1,000 mls @ 100 mls/hr IVCONT .Q10H [facility] Last Admin: 04/06/22 04:16 Dose: 100 mls/hr Lactated Ringer's (Lr) 1,000 mls @ 50 mls/hr IVCONT .Q20H [facility] Last Admin: 04/06/22 08:28 Dose: 50 mls/hr Morphine Sulfate (Morphine Sulfate 4 Mg/Ml Cartridge) 3 mg IVPUSH Q3H PRN; Protocol PRN Reason: Pain, Severe (Pain Scale 7-10) Last Admin: 04/06/22 11:37 Dose: 3 mg Ondansetron HCl (Ondansetron Hcl 4 Mg/2 Ml Vial) 4 mg IVPUSH Q8H PRN PRN Reason: nausea Last Admin: 04/06/22 11:33 Dose: 4 mg Oxycodone HCl (Oxycodone Hcl Immed Release 5 Mg Tablet) 5 mg PO Q6H PRN PRN Reason: Pain, Moderate (Pain Scale 4-6 Pharmacy Consult (Consult Rx Perform Med Rec) 1 each MISCELLANE ONCE PRN PRN Reason: Consult order Sodium Chloride (0.9 % Sodium Chloride Flush 3 Ml Syringe) 3 ml IVFLUSH QSHIFT [facility] Last Admin: 04/06/22 08:28 Dose: 3 ml Home Medications Medication Instructions Recorded Confirmed Last Taken Type vit no.133-ferrous 1 tab PO DAILY 04/05/22 04/05/22 Unknown History fumarate 28 mg-folic acid 800 mcg tablet () Exam Exam Date and Time: April 06, 2022 1415 Height,Weight and Vital Signs: Height 5 ft 3 in Weight 87.997 kg Last Vital Signs Temp 97.5 F 04/06/22 13:54 Pulse 69 04/06/22 13:54 Resp 17 04/06/22 13:54 BP 116/64 04/06/22 13:54 Pulse Ox 95 04/06/22 13:54 O2 Del Method 04/06/22 13:54 Pertinent Lab Results Pertinent Lab Results: Laboratory Tests 04/05/22 04/05/22 04/05/22 14:37 14:37 16:07 WBC 4.2 L RBC 4.23 Hgb 12.5 Hct 36.9 L MCV 87.2 MCH 29.6 MCHC 33.9 RDW 12.6 Plt Count 280 MPV 9.2 L Immature Gran % (Auto) 0.2 Neut % (Auto) 59.5 Lymph % (Auto) 30.9 [place] % (Auto) 7.9 Eos % (Auto) 1.0 Baso % (Auto) 0.5 Lymph # (Auto) 1.3 [place] # (Auto) 0.3 Eos # (Auto) 0.0 Baso # (Auto) 0.0 Abs Immat Gran (auto) 0.01 Absolute Neuts (auto) 2.5 Absolute Nucleated RBC 0.000 Nucleated RBC % (auto) 0.0 Sodium 142 Potassium 4.1 Chloride 106 Carbon Dioxide 26 Anion Gap 14 BUN 10 Creatinine 0.82 Estim Creat Clear Calc 112.2 Estimated GFR > 60 Random Glucose 96 Calcium 9.2 Total Bilirubin 2.7 H Direct Bilirubin 1.5 H AST 955 H ALT 1086 H Alkaline Phosphatase 180 H D Total Protein 7.3 Albumin 4.6 Lipase 39 Beta HCG, Quant < 2 Urine Color Urine Appearance Urine pH Ur Specific [place] Urine Protein Urine Glucose (UA) Urine Ketones Urine Blood Urine Nitrite Ur Leukocyte Esterase Urine Test COVID-19 ([facility]ANDA) Negative COVID-19 Clin Com See Note 04/05/22 04/05/22 04/06/22 20:56 20:56 04:13 WBC RBC Hgb Hct MCV MCH MCHC RDW Plt Count MPV Immature Gran % (Auto) Neut % (Auto) Lymph % (Auto) [place] % (Auto) Eos % (Auto) Baso % (Auto) Lymph # (Auto) [place] # (Auto) Eos # (Auto) Baso # (Auto) Abs Immat Gran (auto) Absolute Neuts (auto) Absolute Nucleated RBC Nucleated RBC % (auto) Sodium Potassium Chloride Carbon Dioxide Anion Gap BUN Creatinine Estim Creat Clear Calc Estimated GFR Random Glucose Calcium Total Bilirubin 3.0 H Direct Bilirubin 2.0 H AST 586 H ALT 1038 H Alkaline Phosphatase 223 H D Total Protein 6.4 L Albumin 4.0 Lipase Beta HCG, Quant Urine Color Dark Yellow Urine Appearance Clear Urine pH 5.5 Ur Specific [place] >= 1.030 H Urine Protein Negative Urine Glucose (UA) Negative Urine Ketones Negative Urine Blood Negative Urine Nitrite Negative Ur Leukocyte Esterase Negative Urine Test NEGATIVE COVID-19 (MARANDA) COVID-19 Clin Com Airway Mallampati Class: I TM Dist: >3cm Neck ROM: Full Heart: rrr Lungs: cta Assessment and Plan Assessment Anesthesia Assessment: Anesthesia Plan Discussed and Chart Reviewed Final Anesthetic Review Family History of Problems with Anesthesia: No History of Problems with Anesthesia: No NPO: Yes ASA Class: II Final Preanesthetic Review: No Changes in Pt Med Stat, Meds/Allgs Chart Reviewed and Consent Obtained/Reviewed Patient Risk: Intermediate Procedure Risk: Intermediate Anesthetic Plan Anesthetic Plan: GA Disposition: Standard PACU
[2022-04-06] MEDS: metroNIDAZOLE/NS 500 MG/100 ML PIGGYBACK 100 MG IV (14:17)
--- NOTE | 2022-04-06 14:28 | MHC.SHP ---
Pre-Procedural Eval Section A Date of Service: 04/06/22 The patient is an INPATIENT: Yes The History & Physical has been completed within 30 days and I have reviewed it.: Yes Section B Chief Complaint: gallstones, elevated LFTs Allergies: Allergies Allergy/AdvReac Type Severity Reaction Status Date / Time amoxicillin [AMOXICILLIN] Allergy Severe FACIAL AND Verified 04/11/21 02:18 THROAT SWELLING Penicillins [PENICILLINS] Allergy Unknown SWELLING Verified 04/11/21 02:18 Plan I have reviewed the history and physical and performed a pertinent physical examination on my patient. No changes have occurred unless specified.
--- NOTE | 2022-04-06 15:22 | W.PM.OPN ---
Operative Note Operative Note Date of Service: 04/06/22 Narrative: Description: Endoscopic retrograde cholangiopancreatography (ERCP) PROCEDURE: Endoscopic retrograde cholangiopancreatography with cholangiography, sphincterotomy, and stone extraction INDICATION FOR THE PROCEDURE: Patient with a history of chronic abdominal pain and imaging revealing CBD stones MEDICATIONS: General anesthesia, rectal indomethacin 100 mg, levofloxacin 750 mg and flagyl 500 mg The risks of the procedure were made aware to the patient and consisted of medication reaction, bleeding, perforation, aspiration, and post ERCP pancreatitis. DESCRIPTION OF PROCEDURE: After informed consent and appropriate sedation, the duodenoscope was inserted into the oropharynx, down the esophagus, and into the stomach. The scope was then advanced through the pylorus to the ampulla. The ampulla was bulbous in appearance. The CBD was easily accessed using wire technique and this was confirmed by cholangiogram. A small filling defect seemed apparent at the distal CBD. A generous sphincterotomy was performed with flow of dark colored bile. A 12 mm extraction balloon was exchanged and then dragged across the duct. No debris or stone material was noted. A 3 cm basket was then used and again no stones noted. the balloon was then placed back into the duct and an occlusion balloon cholangiogram was performed with duct looking clear, but gallbladder seemed to full of small stones vs air bubbles There was some minor oozing which had ceased by the end of the procedure. The stomach was then decompressed and the endoscope was withdrawn. After cleaning the scope a small dark gallstone was removed from the scope about 8 mm in diameter. FINDINGS: 1. gallstones with choledocholithiasis, s/p sphincterotomy and extraction RECOMMENDATIONS: 1. NPO except ice chips for next 4-6 hrs then clears as tolerated, can advance diet tomorrow if feels well. Cont with LR 1-2 L over next several hours to reduce risk of pancreatitis. 2. f/u with surgery
--- NOTE | 2022-04-06 16:27 | PM.EVENT ---
Event Note Date of Service: 04/07/22 Event Note: Seen on afternoon rounds Underwent successful ERCP, sphincterotomy, stone retrieval Appears comfortable Abdomen soft Okay to have clear liquids tonight She says that she would like to hold off on cholecystectomy as she wants to celebrate her birthday in 2 days at home She plans to be able to go home tomorrow Repeat LFTs
[2022-04-06] MEDS: oxyCODONE HCl Immed Release 5 MG TABLET PO (17:52)
--- NOTE | 2022-04-07 00:26 | PC.NURSE ---
Took over care of patient around 2300. See shift assessment for complete assessment. Pt c/o 11/21, chest tightness, non-radiating. Pt states she has had this once before and was told it's an MS hug (pt has hx MS). Pt also stated she was slightly sob and had a dry cough. When rechecked , 5 minutes later pt said sob resolved after she coughed up some phlegm. Dr Le Conway notified. No new orders at this time. Pt sleeping comfortably. Will continue to monitor.
[2022-04-07 04:00] VITALS: BP 136/69; PULSE 98; RESP 17; TEMP 36.7; O2SAT 96
[2022-04-07 07:53] LABS: Alanine Aminotransferase 698 U/L (0-31); Alkaline Phosphatase 229 U/L (39-117); Aspartate Amino Transferase 152 U/L (5-31); Bilirubin Direct 0.6 mg/dL (0.0-0.5); Bilirubin Total 1.3 mg/dL (0.0-1.0); Total Protein 6.4 g/dL (6.5-8.0)
--- NOTE | 2022-04-07 07:59 | PM.PNGS ---
Subjective Subjective Date of Service: 04/21/22 Interval history: States she had a good night Denies abdominal pain Successful ERCP yesterday No nausea or vomiting Physical Exam Vital Signs: Vital Signs: Last Vital Signs Temp 98.1 F 04/07/22 04:00 Pulse 98 04/07/22 04:00 Resp 17 04/07/22 04:00 BP 136/69 04/07/22 04:00 Pulse Ox 96 04/07/22 04:00 O2 Del Method 04/07/22 04:00 BMI result Body Mass Index 34.3 Const: General: comfortable and no acute distress Eyes: Sclerae: sclerae normal Resp: Effort & Inspection: normal respiratory effort Cardio: Rate: regular rate GI: Palpation (GI): Soft to palpation, not firm, nontender and no guarding Objective Data Active Medications Fentanyl (Fentanyl Citrate/Pf 100 Mcg/2 Ml Vial) 50 mcg IVPUSH Q5M PRN; Protocol PRN Reason: Pain, Severe (Pain Scale 7-10) Lactated Ringer's (Lr) 1,000 mls @ 50 mls/hr IVCONT .Q20H MIKI Last Admin: 04/06/22 18:01 Dose: 50 mls/hr Documented By: [place] Morphine Sulfate (Morphine Sulfate 4 Mg/Ml Cartridge) 3 mg IVPUSH Q3H PRN; Protocol PRN Reason: Pain, Severe (Pain Scale 7-10) Last Admin: 04/06/22 11:37 Dose: 3 mg Documented By: SVETLANA Ondansetron HCl (Ondansetron Hcl 4 Mg/2 Ml Vial) 4 mg IVPUSH Q8H PRN PRN Reason: nausea Last Admin: 04/06/22 11:33 Dose: 4 mg Documented By: SVETLANA Oxycodone HCl (Oxycodone Hcl Immed Release 5 Mg Tablet) 5 mg PO Q6H PRN PRN Reason: Pain, Moderate (Pain Scale 4-6 Last Admin: 04/06/22 17:52 Dose: 5 mg Documented By: [place] Oxycodone HCl (Oxycodone Hcl Immed Release 5 Mg Tablet) 5 mg PO ONCE PRN PRN Reason: Pain, Severe (Pain Scale 7-10) Pharmacy Consult (Consult Rx Perform Med Rec) 1 each MISCELLANE ONCE PRN PRN Reason: Consult order Sodium Chloride (0.9 % Sodium Chloride Flush 3 Ml Syringe) 3 ml IVFLUSH QSHIFT MIKI Last Admin: 04/07/22 00:15 Dose: Not Given Documented By: MODE Non-Admin Reason: IV Running Labs CBC & Chem 7: 04/05/22 14:37 04/05/22 14:37 Labs: Laboratory Results - last 24 hr 04/07/22 06:08 Total Bilirubin 1.3 H Direct Bilirubin 0.6 H AST 152 H ALT 698 H Alkaline Phosphatase 229 H Total Protein 6.4 L Albumin 4.0 Procedures Date of Service Date of Service: 04/07/22 Progress Note: A&P Assessment and plan (1) Common bile duct stone: Status: Resolved Assessment and Plan: Status post ERCP stone removal from the duct LFTs now near normal Patient denies abdominal pain She wants to be discharged today - she wants to celebrate her birthday at home tomorrow with her baby I had a long discussion with her about the possibility of recurrent symptoms She says she will see me in the office next week to schedule for outpatient cholecystectomy She understands risks of cholecystitis and recurrent CBD stone Time Spent With Patient Time: Total time spent is greater than 50% in coordination of care (as documented) at patient's floor/unit and/or counseling patient: Quality Stroke Does the patient have a stroke diagnosis?: No VTE Prior VTE?: No VTE Risk Level:: Medical - low VTE Device Contraindication: Treatment Not Indicated VTE Drug Contraindication: Treatment Not Indicated
[2022-04-07 08:06] VITALS: BP 120/70; PULSE 80; RESP 17; TEMP 36.8; O2SAT 98
[2022-04-07] MEDS: 0.9 % Sodium Chloride Flush 3 ML SYRINGE IVFLUSH (09:49)
--- NOTE | 2022-04-07 11:27 | HO.POSTANES ---
Post Anesthesia Evaluation Post Anesthesia Evaluation Vital Signs: Vital Signs Temp Pulse Resp BP Pulse Ox O2 Del Method 04/07/22 08:06 98.3 F 80 17 120/70 98 Room Air 04/07/22 04:00 98.1 F 98 17 136/69 96 Room Air 04/06/22 23:46 97.4 F 75 17 138/83 99 Room Air Anesthesia: General Endotracheal-GETA Mental Status: Awake Pain Control: Satisfactory Nausea/Vomiting: None Hydration: Adequate Anesthesia-Related Issues: No Anes. Related Issues
[2022-04-07 11:31] VITALS: BP 119/65; PULSE 82; RESP 18; TEMP 36.6; O2SAT 100
[2022-04-07] MEDS: Ibuprofen 400 MG TABLET PO (11:38)
[2022-04-07 12:10] VITALS: BP 111/68; PULSE 70; RESP 17; O2SAT 100
[2022-04-07 12:18] LABS: Glucose, Whole Blood 62 mg/dL (60-115)
[2022-04-07 12:42] LABS: Glucose, Whole Blood 93 mg/dL (60-115)
--- NOTE | 2022-04-07 14:09 | MHC.CM.PN ---
DC HOME TODAY - SELF CARE RN AWARE OF PLAN.
--- NOTE | 2022-04-12 15:07 | P.DS_ITS ---
DS: Providers Provider Date of Service: 04/07/22 Date of admission: 04/05/22 18:21 Date of discharge: 04/07/22 Primary care physician: Antelmo Wright MD Consults: 04/05/22 17:45 Consult to Gastroenterology Stat Consulting Provider: Loly Calvo Reason for consultation: CBD stone Has provider been notified: Yes Consult to General Surgery Stat Consulting Provider: Luciano Robb Reason for consultation: CBD stone Has provider been notified: Yes DS: Diagnosis Discharge Diagnosis (1) Common bile duct stone: Status: Acute DS: Summary Hospital Course Hospital Course: Pt is a 22 year old female with PMHx including anxiety and MS who presented to the ED on 04/05/2022 complaining of RUQ/epigastric abdominal pain. She had known gallstones from a previous RUQ US 3 weeks prior. Labs in the ED revealed elevated bilirubin and LFTs, without leukocytosis. Her imaging studies showed gallstones without acute cholecystitis, but showed suggestion of CBD obstru ction, likely from a gallstone. She was admitted to the surgical service and GI consult was obtained for ERCP. This was performed by Dr. Calvo on 04/06, with sphincterotomy and stone extraction. Pt tolerated the procedure well, and LFTs trended down the following day. Discussion was held with the patient regarding the need for cholecystectomy; pt elected to be discharged on 04/07 with plans to follow up in the office the following week to discuss surgery, and understood the risks of recurrent CBD stone and cholecystitis. Upon discharge the patient was ambulatory, tolerating adequate PO intake, and with abdominal pain resolved. Time Spent with Patient Time attestation: Total time spent providing and/or coordinating discharge services: Discharge coordination time: Less than 30 minutes Quality: Safe Use of Opioids Does Pt have an Active Cancer Diagnosis on the Problem List?: No Quality: Stroke Does the patient have a stroke diagnosis?: No Physical Exam Vital Signs: Vital Signs: Last Vital Signs Temp 97.9 F 04/07/22 11:31 Pulse 70 04/07/22 12:10 Resp 17 04/07/22 12:10 BP 111/68 04/07/22 12:10 Pulse Ox 100 04/07/22 12:10 O2 Del Method 04/07/22 12:10 BMI result Body Mass Index 34.3 DS: Data Data Completed and Pending Completed studies during hospitalization [Text1]: Procedures Extirpation of Matter from Common Bile Duct, Via Natural or Artificial Opening Endoscopic (04/05/22) Discharge Plan Discharge Patient Disposition: Home, Self-Care Discharge Diagnosis: Gallstones, common bile duct stone Referrals: Antelmo Camp MD [Primary Care Provider] - 1 Week Luciano Robb MD [Physician] - 1 Week Discharge Medications: Continued ibuprofen 600 mg tablet 600 mg PO Q6H PRN (Reason: pain) Qty: 20 0RF 28-800 mg-mcg Tablet 1 tab PO DAILY Discharge Orders: Discharge Order (Routine); Ordered 04/07/22 Ordered By: Luciano Robb Activity on Discharge: As tolerated Stand Alone Forms: Patient Portal Discharge page Activity Restrictions/Additional Instructions: Stay on low-fat diet Call the office for follow-up scheduled for outpatient cholecystectomy If with recurrent pain, fever, vomiting,you should go back to the emergency room Care Plan Goals: Control multiple sclerosis Plan for cholecystectomy Health Concerns: Gallstones Multiple sclerosis Plan of Treatment: Follow-up with me in the office Assessment: Doing well postop Discharge Date/Time: 04/07/22 14:00
== END 2022-04-07 14:00 | disposition home or self-care (01) ==
LOC: HO.ED 17:07 → HO.EDOVER 19:25 → HO.S3 04-06 16:59
PROVIDERS: Internal Medicine Gastroenterology; Nurse Practitioner Family; Physician Assistant; Admitting Provider Surgery; Emergency Provider Emergency Medicine; PCP Internal Medicine; Visit Provider Surgery
PROC: 0FC98ZZ Extirpation of Matter from Common Bile Duct, Via Natural or Artificial Opening Endoscopic (ICD-10-PCS; CPT 43260; principal; 2022-04-06 15:00)
DX: K80.80 Other cholelithiasis without obstruction (principal); F41.9 Anxiety disorder, unspecified; G35 Multiple sclerosis; Z20.822 Contact with and (suspected) exposure to COVID-19; Z88.0 Allergy status to penicillin
CPT/HCPCS: 43264; 43262; 36415; 74177; 76705; 80048; 80076; 81003; 81025; 82947; 83690; 84702; 85025; 87635; 93005; 96374; 96375; 99218; 99285; C1769; J1100; J1610; J2250; J2270; J2405; J2550; J3010; Q9967

== ENCOUNTER 2022-04-27 15:08 | Outpatient (REF) | payer MEDICAID, SELFPAY ==
[2022-04-27 16:14] LABS: MANUAL DIFF FLAG NO
[2022-04-27 16:43] LABS: Basophils Percent Auto 0.5 % (0-2); Eosinophils Absolute Auto 0.1 X10*3/uL (0.0-0.4); Eosinophils Percent Auto 0.9 % (0-4); Hematocrit 38.1 % (37.0-47.0); Hemoglobin 12.9 g/dl (12.0-16.0); Imm Gran Abs Auto 0.01 X10*3/uL (0.00-0.03); Imm Gran Pct Auto 0.2 % (0.0-0.4); Lymphocytes Percent Auto 30.5 % (20-40); Mean Corpuscular HGB Conc 33.9 g/dl (31.0-35.0); Mean Corpuscular Volume 88.6 fL (80.0-98.0); Mean Platelet Volume 10.2 fL (9.4-12.3); Monocytes Absolute Auto 0.3 X10*3/uL (0.1-1.2); Monocytes Percent Auto 5.1 % (2-11); Neutrophils Absolute Auto 4.1 x10*3/uL (2.0-8.3); Neutrophils Percent Auto 62.8 % (45-73); Platelet Count 271 X10*3/uL (160-400); Red Cell Distribution Width 12.9 % (11.0-16.0); White Blood Count 6.5 X10*3/uL (4.8-10.8)
[2022-04-27 17:21] LABS: Alanine Aminotransferase 18 U/L (0-31); Albumin Level 4.9 g/dL (3.5-5.0); Alkaline Phosphatase 110 U/L (39-117); Anion Gap 16 (12-20); Aspartate Amino Transferase 15 U/L (5-31); Bilirubin Total 0.5 mg/dL (0.0-1.0); Blood Urea Nitrogen 21 mg/dL (9-16); Calcium 9.6 mg/dL (8.4-10.2); Carbon Dioxide 23 mmol/L (22-29); Chloride 105 mmol/L (96-108); Estimated Glomerular Filt Rate > 60; Glucose Random 80 mg/dL (60-115); Potassium 4.3 mmol/L (3.3-5.1); Sodium 140 mmol/L (135-145); Total Protein 7.9 g/dL (6.5-8.0)
== END 2022-04-27 15:09 | disposition home or self-care (01) ==
LOC: HO.LAB 15:08
PROVIDERS: PCP Internal Medicine; Visit Provider Surgery
DX: K80.44 Calculus of bile duct with chronic cholecystitis without obstruction (principal); G35 Multiple sclerosis; Z39.1 Encounter for care and examination of lactating mother
CPT/HCPCS: 36415; 80053; 85025; 99202

== ENCOUNTER 2022-05-13 03:42 | Emergency (ER) | payer MEDICAID, SELFPAY ==
[2022-05-13 03:54] VITALS: BP 105/75; PULSE 97; RESP 18; TEMP 37.1; O2SAT 99; BMI 32.9
--- NOTE | 2022-05-13 03:59 | ED_ITS ---
HPI - Abdominal Pain General Chief Complaint: Abdominal Pain Stated Complaint: gallstone? Time Seen by Provider: 05/13/22 03:59 Source: patient Mode of arrival: ambulatory Limitations: no limitations History of Present Illness HPI narrative: Patient history of gallstone had ERCP done 2 months ago which was negative for CBD stone plan to get surgery done next week comes here as she noticed acute abdominal pain about 20 minutes prior to arrival with nausea vomited 2 times after arrival patient feeling much better now no significant pain slight nausea no vomiting patient had meal earlier today no fever or chills Related Data Home Medications Medication Instructions Recorded Confirmed vit no.133-ferrous 1 tab PO DAILY 04/05/22 04/05/22 fumarate 28 mg-folic acid 800 mcg tablet () Previous Rx's Medication Instructions Recorded ibuprofen 600 mg tablet 600 mg PO Q6H PRN pain #20 tabs 03/21/22 ibuprofen 600 mg tablet 600 mg PO Q6H PRN Pain, Moderate 05/13/22 #30 tabs ondansetron 4 mg disintegrating 4 mg PO Q6-8H PRN nausea and 05/13/22 tablet vomiting #7 tabs Allergies Allergy/AdvReac Type Severity Reaction Status Date / Time amoxicillin [AMOXICILLIN] Allergy Severe FACIAL AND Verified 04/27/22 15:14 THROAT SWELLING Penicillins [PENICILLINS] Allergy Unknown SWELLING Verified 04/27/22 15:14 Review of Systems Review of Systems Yes all other systems are reviewed and are negative [facility] Past Medical History Medical History Anxiety 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 Fracture of right lower leg Multiple sclerosis Family History Family History Mother Cervical cancer Maternal Aunt Cervical cancer Paternal Grandfather Throat cancer Social History Social History Household Members: Significant Other and Other Household Members Other:: son Housing: Apartment Do you presently have visiting nurse or other home services: No Alcohol intake: current Alcohol intake frequency: does not drink Patient Tobacco Use Status: Never used Tobacco Advance Directives: No Advance Directives Information Provided: No service: No Current occupational status: employed Physical Exam ED Vital Signs: Vital Signs - 24 hr 05/13/22 03:54 Temperature 98.7 F Pulse Rate 97 Respiratory Rate 18 Blood Pressure 105/75 Pulse Oximetry 99 Oxygen Delivery Method Room Air BMI result Body Mass Index 32.9 Appearance: Alert. Oriented X3. No acute distress. Eyes: No pallor or icterus ENT: Pharynx normal. Oral Mucosa moist Neck: Normal inspection. Neck supple. CVS: Normal heart rate and rhythm. Pulses normal. Respiratory: No respiratory distress. Equal air entry bilateral, no wheezing/rales/rhonchi Abdomen: Soft and mild tenderness right upper quadrant no rebound tenderness or guarding Bowel sounds are present, no mass palpable, no CVA tenderness Skin: Skin warm and dry. Normal skin color. Normal skin turgor. Extremities: No lower extremity edema. No calf tenderness Neuro: Oriented X 3. Procedures Procedure Narrative Procedure Narrative: Gallbladder ultrasound done by myself: Multiple gallstones seen no significant gallbladder wall thickness no ángela cholecystic fluid, CBD 4 mm MDM - Abdominal Pain MDM Narrative Medical decision making narrative: Patient with biliary colic ultrasound negative for CBD dilatation or gallbladder wall thickening patient feeling much better now will discharge patient home advised follow-up with surgeon for scheduled surgery Discharge Plan Discharge Clinical Impression: Biliary colic Patient Disposition: Home, Self-Care Instructions: Biliary Colic (ED) Additional Instructions: Drink plenty of fluid avoid fried food Ibuprofen for pain, Zofran for nausea Report to the ER if pain continues or get worse Follow-up with your surgeon as scheduled Prescriptions: New ibuprofen 600 mg tablet 600 mg PO Q6H PRN (Reason: Pain, Moderate) Qty: 30 0RF ondansetron 4 mg tablet,disintegrating 4 mg PO Q6-8H PRN (Reason: nausea and vomiting) Qty: 7 0RF No Action ibuprofen 600 mg tablet 600 mg PO Q6H PRN (Reason: pain) Qty: 20 0RF 28-800 mg-mcg Tablet 1 tab PO DAILY Interventions: ED Discharge Assessment Last Done: 05/13/22 04:50 Discharge Date/Time: 05/13/22 04:52
== END 2022-05-13 04:52 | disposition home or self-care (01) ==
PROVIDERS: Emergency Provider Internal Medicine
DX: K80.50 Calculus of bile duct without cholangitis or cholecystitis without obstruction (principal); Z79.899 Other long term (current) drug therapy
CPT/HCPCS: 99282; 99283

== ENCOUNTER → 2022-05-19 11:25 | Day surgery (SDC) | payer MEDICAID, SELFPAY ==
[2022-05-13 14:08] VITALS: BMI 33.2
--- NOTE | 2022-05-18 09:29 | P.CONAN_ITS ---
Documented by User: Anel Botello NP 05/18/22 09:32 HPI - Anesthesia Eval Consult details Narrative: 22yo F for Cholecystectomy Laparoscopic. possible open, possible cholangiogram MS followed by [facility]. Last visit 04/2022. Stable without any symptoms. 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 Fracture of right lower leg Multiple sclerosis Family History Family History Mother Cervical cancer Maternal Aunt Cervical cancer Paternal Grandfather Throat cancer Family history of problems with anesthesia: No Surgical History Surgical History History of ERCP History of Problems with Anesthesia: No Social History Social History Household Members: Significant Other and Other Household Members Other:: son Housing: Apartment Do you presently have visiting nurse or other home services: No Alcohol intake: current Alcohol intake frequency: does not drink Patient Tobacco Use Status: Never used Tobacco Are you DNR?: No Advance Directives: No Advance Directives Information Provided: Yes Nutrition Risks: No Nutritional Risk FDLMP: finished last week : Yes (pt states has been educated regarding anesthesia and ) service: No Current occupational status: employed Meds Allergies Allergy/AdvReac Type Severity Reaction Status Date / Time amoxicillin [AMOXICILLIN] Allergy Severe FACIAL AND Verified 04/27/22 15:14 THROAT SWELLING Penicillins [PENICILLINS] Allergy Intermediate SWELLING Verified 05/13/22 14:09 Home Medications Medication Instructions Recorded Confirmed Last Taken Type vit no.133-ferrous 1 tab PO DAILY 04/05/22 04/05/22 Unknown History fumarate 28 mg-folic acid 800 mcg tablet () Exam Exam Date and Time: May 18, 2022 0929 Height,Weight and Vital Signs: Height 5 ft 3 in Weight 85 kg Pertinent Lab Results Pertinent Lab Results: Laboratory Tests 04/27/22 04/27/22 16:13 16:13 WBC 6.5 Hgb 12.9 Hct 38.1 Plt Count 271 Sodium 140 Potassium 4.3 Chloride 105 Carbon Dioxide 23 BUN 21 H D Creatinine 0.87 Narrative Narrative: EKG 03/2022 Vent. Rate : 089 BPM ? ? Atrial Rate : 089 BPM ?? P-R Int : 148 ms? QRS Dur : 074 ms ? ? QT Int : 370 ms ? ? ? P-R-T Axes : 063 044 022 degrees ?? QTc Int : 450 ms ? 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 Fracture of right lower leg Multiple sclerosis Functional capacity: uses cane/walker Family History Family History Mother Cervical cancer Maternal Aunt Cervical cancer Paternal Grandfather Throat cancer Surgical History Surgical History History of ERCP Social History Social History Household Members: Significant Other and Other Household Members Other:: son Housing: Apartment Do you presently have visiting nurse or other home services: No Alcohol intake: current Alcohol intake frequency: does not drink Patient Tobacco Use Status: Never used Tobacco Are you DNR?: No Advance Directives: No Advance Directives Information Provided: Yes Nutrition Risks: No Nutritional Risk FDLMP: finished last week : Yes (pt states has been educated regarding anesthesia and ) service: No Current occupational status: employed Meds Allergies Allergy/AdvReac Type Severity Reaction Status Date / Time amoxicillin [AMOXICILLIN] Allergy Severe FACIAL AND Verified 04/27/22 15:14 THROAT SWELLING Penicillins [PENICILLINS] Allergy Intermediate SWELLING Verified 05/13/22 14:09 Home Medications Medication Instructions Recorded Confirmed Last Taken Type vit no.133-ferrous 1 tab PO DAILY 04/05/22 04/05/22 Unknown History fumarate 28 mg-folic acid 800 mcg tablet () Exam Airway Mallampati Class: II TM Dist: >3cm Neck ROM: Full Heart: RRR Lungs: CTA Assessment and Plan Assessment Anesthesia Assessment: Anesthesia Plan Discussed Final Anesthetic Review NPO: Yes ASA Class: II Final Preanesthetic Review: No Changes in Pt Med Stat, Meds/Allgs Chart Reviewed, Consent Obtained/Reviewed and Anes Risks/Benef Reviewed Patient Risk: Intermediate Procedure Risk: Intermediate Anesthetic Plan Anesthetic Plan: GA Disposition: Standard PACU
[2022-05-19] VITALS (12 sets, daily range): BP systolic 119–140; BP diastolic 67–84; PULSE 66–88; RESP 16–18; TEMP 36.3–36.5; O2SAT 97–100
[2022-05-19 11:49] LABS: UPreg QC Valid YES; Urine Pregnancy NEGATIVE (NEGATIVE)
[2022-05-19] MEDS: Acetaminophen 325 MG TABLET 650 MG PO (11:58)
[2022-05-19] MEDS: Lactated Ringers 500 ML 50 ML IV (12:01)
--- NOTE | 2022-05-19 12:55 | MHC.SHP ---
Pre-Procedural Eval Section A Date of Service: 05/19/22 The patient is an INPATIENT: No The History & Physical has been completed within 30 days and I have reviewed it.: Yes Section B Chief Complaint: Calculus of bile duct with chronic cholecystitis w Allergies: Allergies Allergy/AdvReac Type Severity Reaction Status Date / Time amoxicillin [AMOXICILLIN] Allergy Severe FACIAL AND Verified 04/27/22 15:14 THROAT SWELLING Penicillins [PENICILLINS] Allergy Intermediate SWELLING Verified 05/13/22 14:09 Plan I have reviewed the history and physical and performed a pertinent physical examination on my patient. No changes have occurred unless specified.
--- NOTE | 2022-05-19 12:55 | W.PM.OPN ---
Operative Note Operative Note Date of Service: 05/19/22 Narrative: Preop diagnosis: [History of choledocholithiasis; chronic calculous cholecystitis] Postop diagnosis: [Same] Procedure: [laparoscopic cholecystectomy] Surgeon: Wilner Dixon MD Assist: [Akiko Brown PA-C] Anesthesia: [GET, local: ropivicaine, 0.5%] Estimated blood loss: [3cc] Specimen: [Gallbladder and contents] Intraoperative findings: [] Indications: [The patient is a 22-year-old woman who is recently who was admitted with choledocholithiasis at a previous hospitalization. The recommendation for lap choly was reviewed and options including continued observation versus a 2nd opinion were reviewed. The inherent risks were discussed with the patient and apparently understood. I explained the symptoms of biliary colic and recommended laparoscopic cholecystectomy. I reviewed the option of continued observation and 2nd opinion which was declined. I also reviewed the inherent risks to surgery which include, but are not limited to: Bleeding that could require another operation or blood transfusion, the need for open surgery, the unlikely but possible issue of bile leak that could require an ERCP, the risk of retained common duct stones that could require an ERCP, the risk of common bile duct injury which would require transfer to a larger institution for another operation. Patient seemed to understand her options. The need to pump in waist breast milk was also reviewed in advance.] Procedure: [The patient was identified by myself in the preoperative holding area and again in the operating room. The patient was identified in preoperative holding and again in the operating room and placed supine on the table. The patient voided bladder consumer relations complaint clerk, sequential compression stockings were in place, subcu heparin had been administered and antibiotics per protocol were given. The patient was induced in general endotracheal anesthesia administered with excellent effect. An appropriate time-out was performed. A footboard was utilized. The patient's abdomen was widely prepped and draped in the usual manner for surgery using chlorhexidine. Preemptive local was used at all trocar insertion sites. Again at the supraumbilical location and after infiltrating local, made a stab incision and placed a Veress needle without difficulty. An appropriate drop test was performed and a pneumoperitoneum of 15 mmHg was obtained using carbon dioxide. opening pressure was 7 mmHg. Next, the needle was withdrawn and a 5 mm/30 degree laparoscoped over Optiview trocar was used to access the abdomen without incident. Upon examining the abdomen, there was no evidence of injury from the Veress needle or trocar. Next, 5 mm trocars were placed in the epigastric, subcostal and right anterior axillary line just above the line of the umbilicus. Under direct laparoscopic vision, the 5 mm umbilical port was upsized to a 12 mm. The patient was then positioned in reverse Trendelenburg position and banked left. The gallbladder was clearly identified and grasped by its fundus. It was retracted cranially and anteriorly and dissection began in the cystic triangle. The cystic duct was identified at its junction on the gallbladder and dissection began laterally, then circumferentially dissected using the [place] dissector and hook. The cystic artery was then carefully identified and circumferentially dissected. Once dissection of both structures was complete and the critical view of safety demonstrated, the duct and artery were double clipped proximally and once distally and sharply divided. Electrocautery was used to remove the gallbladder from its fossa on the liver. Liver bed was inspected for hemostasis and the clips were noted to be on the respective structures. The gallbladder was placed in an Endo-Catch bag and delivered through the umbilicus under direct laparoscopic vision. The abdomen was again inspected with the laparoscoped and a abdomen deflated to assess for hemostasis. The patient was returned to neutral position, the abdomen deflated and the fascia of the supraumbilical incision closed with interrupted Vicryl sutures. Skin was closed with 4-0 Monocryl subcuticular sutures. Mastisol and Steri-Strips were applied followed by Band-Aids. The patient tolerated the procedure well and was extubated recovered in stable condition. All sponge instrument counts were correct. At the patient's request I called her Gonzalez elizabeth at [phone] and apprise them of the operation and plan. His questions seemed to be satisfactorily answered.]
--- NOTE | 2022-05-19 13:40 | P.CONAN_ITS ---
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 Fracture of right lower leg Multiple sclerosis Functional capacity: independent ambulation Patient : No Family History Family History Mother Cervical cancer Maternal Aunt Cervical cancer Paternal Grandfather Throat cancer Family history of problems with anesthesia: No Surgical History Surgical History History of ERCP History of Problems with Anesthesia: No Social History Social History Household Members: Significant Other and Other Household Members Other:: son Housing: Apartment Do you presently have visiting nurse or other home services: No Alcohol intake: current Alcohol intake frequency: does not drink Patient Tobacco Use Status: Never used Tobacco Are you DNR?: No Advance Directives: No Advance Directives Information Provided: Yes Nutrition Risks: No Nutritional Risk FDLMP: finished last week : Yes (pt states has been educated regarding anesthesia and ) service: No Current occupational status: employed Meds Allergies Allergy/AdvReac Type Severity Reaction Status Date / Time amoxicillin [AMOXICILLIN] Allergy Severe FACIAL AND Verified 04/27/22 15:14 THROAT SWELLING Penicillins [PENICILLINS] Allergy Intermediate SWELLING Verified 05/13/22 14:09 Active Medications: Current Medications Fentanyl (Fentanyl Citrate/Pf 100 Mcg/2 Ml Vial) 25 mcg IVPUSH Q5M PRN; Protocol PRN Reason: Pain, Moderate (Pain Scale 4-6 Lactated Ringer's (Lr) 500 mls @ 50 mls/hr IV .Q10H MIKI Stop: 05/19/22 21:44 Last Admin: 05/19/22 12:01 Dose: 50 mls/hr Ondansetron HCl (Ondansetron Hcl 4 Mg/2 Ml Vial) 4 mg IVPUSH ONCE PRN PRN Reason: Nausea and Vomiting Home Medications Medication Instructions Recorded Confirmed Last Taken Type vit no.133-ferrous 1 tab PO DAILY 04/05/22 04/05/22 Unknown History fumarate 28 mg-folic acid 800 mcg tablet () Exam Exam Date and Time: May 19, 2022 1340 Height,Weight and Vital Signs: Height 5 ft 3 in Weight 85 kg Last Vital Signs Temp 97.5 F 05/19/22 11:50 Pulse 83 05/19/22 11:50 Resp 18 05/19/22 11:50 BP 138/74 05/19/22 11:50 Pulse Ox 98 05/19/22 11:50 O2 Del Method 05/19/22 11:50 Pertinent Lab Results Pertinent Lab Results: Laboratory Tests 05/19/22 11:10 Urine Test NEGATIVE Assessment and Plan Final Anesthetic Review Family History of Problems with Anesthesia: No History of Problems with Anesthesia: No
[2022-05-19] MEDS: ondansetron HCL 4 MG/2 ML VIAL IVPUSH (15:29)
[2022-05-19] MEDS: fentaNYL citrate/PF 100 MCG/2 ML VIAL 25 MCG IVPUSH ×2 (15:30→15:40)
[2022-05-19] MEDS: oxyCODONE HCl Immed Release 5 MG TABLET PO (15:49)
== END | disposition home or self-care (01) ==
PROVIDERS: Nurse Practitioner; Visit Provider Surgery
PROC: 0FT44ZZ Resection of Gallbladder, Percutaneous Endoscopic Approach (ICD-10-PCS; CPT 47562; principal; 2022-05-19 12:30)
DX: K80.10 Calculus of gallbladder with chronic cholecystitis without obstruction (principal); G35 Multiple sclerosis; Z98.890 Other specified postprocedural states; Z88.0 Allergy status to penicillin; Z88.1 Allergy status to other antibiotic agents
CPT/HCPCS: 47562; 81025; 88304; J1100; J1200; J1956; J2250; J2405; J2550; J2795; J3010

== ENCOUNTER 2023-05-08 15:40 | Outpatient (REF) | payer MEDICAID, SELFPAY ==
[2023-05-08 18:21] LABS: Influenza A PCR NEGATIVE (Negative); Influenza B PCR NEGATIVE (Negative); Resp Syncy Virus RNA Qual PCR NEGATIVE (Negative); SARS COV2 PCR INHOUSE NEGATIVE (Negative)
== END 2023-05-08 15:41 | disposition home or self-care (01) ==
LOC: HO.CHCLNP 15:40
PROVIDERS: Visit Provider Family Medicine
DX: J06.9 Acute upper respiratory infection, unspecified (principal); Z20.822 Contact with and (suspected) exposure to COVID-19
CPT/HCPCS: 0241U

== ENCOUNTER 2024-02-12 11:58 | Outpatient (REF) | payer MEDICAID, SELFPAY ==
[2024-02-12 14:20] LABS: MANUAL DIFF FLAG NO
[2024-02-12 14:27] LABS: Basophils Percent Auto 0.4 % (0-2); Eosinophils Absolute Auto 0.1 X10*3/uL (0.0-0.4); Eosinophils Percent Auto 1.1 % (0-4); Hematocrit 38.7 % (37.0-47.0); Hemoglobin 13.1 g/dl (12.0-16.0); Imm Gran Abs Auto 0.01 X10*3/uL (0.00-0.03); Imm Gran Pct Auto 0.2 % (0.0-0.4); Lymphocytes Absolute Auto 1.6 X10*3/uL (1.2-4.9); Lymphocytes Percent Auto 27.2 % (20-40); Mean Corpuscular HGB Conc 33.9 g/dl (31.0-35.0); Mean Corpuscular Hemoglobin 30.5 pg (27.0-33.0); Mean Platelet Volume 9.9 fL (9.4-12.3); Monocytes Absolute Auto 0.3 X10*3/uL (0.1-1.2); Monocytes Percent Auto 4.4 % (2-11); Neutrophils Absolute Auto 3.8 x10*3/uL (2.0-8.3); Neutrophils Percent Auto 66.7 % (45-73); Platelet Count 272 X10*3/uL (160-400); Red Cell Distribution Width 12.9 % (11.0-16.0); White Blood Count 5.7 X10*3/uL (4.8-10.8)
[2024-02-12 15:02] LABS: Alanine Aminotransferase 30 U/L (0-31); Albumin Level 4.7 g/dL (3.5-5.0); Alkaline Phosphatase 84 U/L (39-117); Anion Gap 12 (12-20); Aspartate Amino Transferase 21 U/L (5-31); Bilirubin Total 0.7 mg/dL (0.0-1.0); Blood Urea Nitrogen 12 mg/dL (9-16); Calcium 9.6 mg/dL (8.4-10.2); Carbon Dioxide 25 mmol/L (22-29); Chloride 107 mmol/L (96-108); Cholesterol 166 mg/dL (<200); Estimated Glomerular Filt Rate > 60; Glucose Random 91 mg/dL (60-115); HDL Cholesterol 41 mg/dL (>40); LDL Cholesterol Calculated 100 mg/dL (<100); Potassium 4.2 mmol/L (3.3-5.1); Sodium 140 mmol/L (135-145); Total Protein 7.8 g/dL (6.5-8.0); Triglycerides 128 mg/dL (<150)
[2024-02-12 15:10] LABS: TSH reflex Free T4 1.59 uIU/mL (0.32-4.0)
[2024-02-13 07:37] LABS: HBS Num1 1.97 mIU/mL (0-7.99); HBc Num1 0.12 S/CO (0.00-0.79); HBsAGNum1 0.29 S/CO (0.00-0.99); HIV AB/AG Nonreactive (Nonreactive); HIV Num 1 0.06 S/CO (0.00-0.99); Hepatitis B Core Antibody Nonreactive (Nonreactive); Hepatitis B Surface Antigen Negative (Negative); ~HepC Num1 0.08 S/CO (0.00-0.79); ~Hepatitis B Surface Antibody NONREACTIVE (Nonreactive); ~Hepatitis C Antibody Nonreactive (Nonreactive)
== END 2024-02-12 11:59 | disposition home or self-care (01) ==
LOC: HO.CHCLDS 11:58
PROVIDERS: Visit Provider Nurse Practitioner
DX: Z13.9 Encounter for screening, unspecified (principal); E66.9 Obesity, unspecified
CPT/HCPCS: 36415; 80053; 80061; 84443; 85025; 86704; 86706; 86803; 87340; 87389

== ENCOUNTER 2024-04-15 03:47 | Emergency (ER) | payer MEDICAID, SELFPAY ==
--- NOTE | 2024-04-15 | ECG_ITS ---
Test Reason : PALPITATIONS Blood Pressure : / mmHG Vent. Rate : 082 BPM Atrial Rate : 082 BPM P-R Int : 150 ms QRS Dur : 078 ms QT Int : 388 ms P-R-T Axes : 050 015 020 degrees QTc Int : 453 ms Sinus rhythm with marked sinus arrhythmia Otherwise normal ECG When compared with ECG of 05-APR-2022 17:17, No significant change was found Referred By: Generic ED Physician Electronically Signed By:BABAR GARCIA
[2024-04-15 03:55] VITALS: BP 120/79; PULSE 74; RESP 18; TEMP 36.4; O2SAT 100; BMI 36.3
[2024-04-15 04:15] LABS: MANUAL DIFF FLAG NO
[2024-04-15 04:16] LABS: Basophils Percent Auto 0.6 % (0-2); Eosinophils Absolute Auto 0.1 X10*3/uL (0.0-0.4); Eosinophils Percent Auto 1.2 % (0-4); Hematocrit 34.8 % (37.0-47.0); Hemoglobin 12.1 g/dl (12.0-16.0); Imm Gran Abs Auto 0.01 X10*3/uL (0.00-0.03); Imm Gran Pct Auto 0.1 % (0.0-0.4); Lymphocytes Absolute Auto 1.8 X10*3/uL (1.2-4.9); Lymphocytes Percent Auto 25.3 % (20-40); Mean Corpuscular HGB Conc 34.8 g/dl (31.0-35.0); Mean Corpuscular Hemoglobin 30.8 pg (27.0-33.0); Mean Corpuscular Volume 88.5 fL (80.0-98.0); Mean Platelet Volume 9.6 fL (9.4-12.3); Monocytes Absolute Auto 0.4 X10*3/uL (0.1-1.2); Monocytes Percent Auto 6.3 % (2-11); Neutrophils Absolute Auto 4.6 x10*3/uL (2.0-8.3); Neutrophils Percent Auto 66.5 % (45-73); Platelet Count 217 X10*3/uL (160-400); Red Blood Count 3.93 X10*6/uL (4.20-5.50); Red Cell Distribution Width 12.8 % (11.0-16.0); White Blood Count 6.9 X10*3/uL (4.8-10.8)
[2024-04-15 04:19] VITALS: BP 124/55; PULSE 86; RESP 17; TEMP 36.7; O2SAT 98
[2024-04-15 04:31] LABS: Alanine Aminotransferase 43 U/L (0-31); Albumin Level 4.4 g/dL (3.5-5.0); Alkaline Phosphatase 79 U/L (39-117); Anion Gap 15 (12-20); Aspartate Amino Transferase 19 U/L (5-31); Bilirubin Total 0.4 mg/dL (0.0-1.0); Blood Urea Nitrogen 15 mg/dL (9-16); Calcium 9.5 mg/dL (8.4-10.2); Carbon Dioxide 23 mmol/L (22-29); Chloride 107 mmol/L (96-108); Creatinine Clr Calc Pharmacy 115.3; Estimated Glomerular Filt Rate > 60; Glucose Random 103 mg/dL (60-115); Potassium 3.7 mmol/L (3.3-5.1); Sodium 141 mmol/L (135-145); Total Protein 7.3 g/dL (6.5-8.0)
--- NOTE | 2024-04-15 04:39 | MHC.EDTECH ---
Pt changed over into a hospital gown and placed on a surveillance monitor
--- NOTE | 2024-04-15 05:34 | ED_ITS ---
HPI - Arrhythmia/Palpitations General Chief Complaint: Arrhythmia/Palpitations Stated Complaint: palpitations/MS Time Seen by Provider: 04/15/24 05:10 Source: patient Mode of arrival: ambulatory Limitations: no limitations History of Present Illness ED Provider: shaw LUCERO narrative: Patient complaining of palpitation for last 24 hours with slight chest tightness patient feel that heartbeats are skipping no syncope no dizziness patient feels little anxious patient has had extra coffee yesterday no history of similar palpitation in the past Related Data Home Medications ?Medication ?Instructions ?Recorded ?Confirmed vit no.133-ferrous 1 tab PO DAILY 04/05/22 06/16/22 fumarate 28 mg-folic acid 800 mcg tablet () Previous Rx's ?Medication ?Instructions ?Recorded ibuprofen 600 mg tablet 600 mg PO Q6H PRN pain #20 tabs 03/21/22 ibuprofen 600 mg tablet 600 mg PO Q6H PRN Pain, Moderate 05/13/22 #30 tabs Allergies Allergy/AdvReac Type Severity Reaction Status Date / Time amoxicillin [AMOXICILLIN] Allergy Severe FACIAL AND Verified 04/15/24 04:01 THROAT SWELLING Penicillins [PENICILLINS] Allergy Intermediate SWELLING Verified 04/15/24 04:01 Review of Systems 2 Review of Systems: Yes all other systems are reviewed and are negative PMFSH Past Medical History Medical History Fracture of right lower leg Multiple sclerosis 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 Anxiety Surgical History History of ERCP Family History Family History Mother Cervical cancer Maternal Aunt Cervical cancer Paternal Grandfather Throat cancer Social History Social History Household Members: Significant Other and Other Household Members Other:: son Housing: Apartment Do you presently have visiting nurse or other home services: No Alcohol intake: current Alcohol intake frequency: does not drink Comment: sleeping Patient Tobacco Use Status: Never used Tobacco Advance Directives: No Advance Directives Information Provided: Yes service: No Current occupational status: employed Physical Exam 2 Vital Signs: Vital Signs: Last Vital Signs Temp 98.0 F 04/15/24 05:55 Pulse 86 04/15/24 05:55 Resp 17 04/15/24 05:55 BP 124/55 L 04/15/24 05:55 Pulse Ox 98 04/15/24 05:55 O2 Del Method Room Air 04/15/24 05:55 BMI result Body Mass Index 36.3 Appearance: Alert. Oriented X3. No acute distress. Eyes: No pallor or ENT: Pharynx normal. Oral Mucosa moist Neck: Normal inspection. Neck supple. CVS: Regular rate with premature beats Pulses normal. No murmur rub or gallop Respiratory: No respiratory distress. Equal air entry bilateral, no wheezing/rales/rhonchi Abdomen: Soft and nontender. Bowel sounds are present, no mass palpable, no CVA tenderness Skin: Skin warm and dry. Normal skin color. Normal skin turgor. Extremities: No lower extremity edema. No calf tenderness Neuro: Oriented X 3. No motor deficit. Medical Decision Making Medical Decision Making [facility] Narrative: Patient with palpitation clinically patient has premature beats EKG showed PACs no prior cardiac history patient did have extra caffeine lately and has increased stress at home likely the cause patient advised decrease caffeine intake and follow with PCP if palpitation continues for further evaluation Differential Diagnosis Differential Diagnoses: The differential diagnosis associated with the presentation includes PACs/SVT/atrial fibrillation/atrial flutter Lab Data [facility] Lab Attestation statement: I reviewed the patient's lab results. 04/15/24 04:10 04/15/24 04:10 Labs: Lab Results 04/15/24 Range/Units 04:10 WBC 6.9 (4.8-10.8) X10*3/uL RBC 3.93 L (4.20-5.50) X10*6/uL Hgb 12.1 (12.0-16.0) g/dl Hct 34.8 L (37.0-47.0) % MCV 88.5 (80.0-98.0) fL MCH 30.8 (27.0-33.0) pg MCHC 34.8 (31.0-35.0) g/dl RDW 12.8 (11.0-16.0) % Plt Count 217 (160-400) X10*3/uL MPV 9.6 (9.4-12.3) fL Immature Gran % (Auto) 0.1 (0.0-0.4) % Neut % (Auto) 66.5 (45-73) % Lymph % (Auto) 25.3 (20-40) % Milam % (Auto) 6.3 (2-11) % Eos % (Auto) 1.2 (0-4) % Baso % (Auto) 0.6 (0-2) % Lymph # (Auto) 1.8 (1.2-4.9) X10*3/uL Milam # (Auto) 0.4 (0.1-1.2) X10*3/uL Eos # (Auto) 0.1 (0.0-0.4) X10*3/uL Baso # (Auto) 0.0 (0.0-0.2) X10*3/uL Abs Immat Gran (auto) 0.01 (0.00-0.03) X10*3/uL Absolute Neuts (auto) 4.6 (2.0-8.3) x10*3/uL Absolute Nucleated RBC 0.000 (0.0-0.012) X10*3/uL Nucleated RBC % (auto) 0.0 (0.0-0.2) /100WBC Sodium 141 (135-145) mmol/L Potassium 3.7 (3.3-5.1) mmol/L Chloride 107 (96-108) mmol/L Carbon Dioxide 23 (22-29) mmol/L Anion Gap 15 (12-20) BUN 15 (9-16) mg/dL Creatinine 0.80 (0.5-1.4) mg/dL Estim Creat Clear Calc 115.3 Estimated GFR > 60 Random Glucose 103 (60-115) mg/dL Calcium 9.5 (8.4-10.2) mg/dL Total Bilirubin 0.4 (0.0-1.0) mg/dL AST 19 (5-31) U/L ALT 43 H (0-31) U/L Alkaline Phosphatase 79 (39-117) U/L Total Protein 7.3 (6.5-8.0) g/dL Albumin 4.4 (3.5-5.0) g/dL Independent Interpretation I performed an independent interpretation of an: EKG Interpretation: Normal sinus rhythm heartbeat treat 82 beats per minute premature atrial beats no acute STT wave changes no acute ischemia Discharge Plan Discharge Clinical Impression: Premature atrial beats Patient Disposition: Home, Self-Care Instructions: Premature Atrial Contractions (ED) Additional Instructions: Avoid caffeine drinks Follow with your PCP if palpitation continues/passing out episode/chest pain At this time you have premature beats which can be seen if you drink caffeine/anxiety Prescriptions: No Action ibuprofen 600 mg tablet 600 mg PO Q6H PRN (Reason: pain) Qty: 20 0RF 28-800 mg-mcg Tablet 1 tab PO DAILY ibuprofen 600 mg tablet 600 mg PO Q6H PRN (Reason: Pain, Moderate) Qty: 30 0RF Interventions: ED Discharge Assessment Last Done: 04/15/24 05:55 Discharge Date/Time: 04/15/24 05:56 Print Language: Bulgarian
[2024-04-15 05:55] VITALS: BP 124/55; PULSE 86; RESP 17; TEMP 36.7; O2SAT 98
== END 2024-04-15 05:56 | disposition home or self-care (01) ==
PROVIDERS: Emergency Provider Internal Medicine; PCP Internal Medicine
DX: I49.1 Atrial premature depolarization (principal); R00.2 Palpitations
CPT/HCPCS: 36415; 80053; 85025; 93005; 99283

== ENCOUNTER 2024-06-11 12:20 | Emergency (ER) | payer MEDICAID, SELFPAY ==
--- NOTE | ~2024-06-11 | CT_ITS ---
EXAMINATION: CT CERVICAL SPINE WITHOUT CONTRAST CLINICAL INFORMATION: Pain, fracture. COMPARISON: None available. TECHNIQUE: Thin section axial images with sagittal and coronal reformats This CT examination was performed using dose optimization techniques as appropriate, variously including the following: *Automated exposure control *Adjustment of mA and/or kV according to patient size (this includes techniques or standardized protocols for targeted exams where dose is matched to indication/reason for exam; i.e. extremities or head) *Use of iterative reconstruction technique DLP: 506 mGy-cm FINDINGS: No fracture or destructive process or alignment abnormality. No encroachment on the spinal canal. Prevertebral soft tissues are normal. CT/CT cervical spine wo IV con IMPRESSION: Negative exam. Fleischner guidelines were followed. Electronically signed by: Ubaldo Harper MD 06/11/2024 03:18 PM EDT
[2024-06-11 12:36] VITALS: BP 113/76; PULSE 97; RESP 18; TEMP 36.6; O2SAT 98; BMI 35.1
--- NOTE | 2024-06-11 12:36 | ED.NECK ---
HPI - Neck Pain/Injury General Chief Complaint: Neck Pain/Injury Stated Complaint: Unable to move neck Time Seen by Provider: 06/11/24 12:46 Source: patient Mode of arrival: ambulatory Limitations: no limitations History of Present Illness ED Provider: Chidi Bernard PA-C HPI Narrative: 24 yold female with pmh of MS presents to the ED for right sided posterior neck pain radiating down right arm. Patient states she woke up this morning turned and head quickly and felt a crack in the back of her neck and ever since then she has had right-sided posterior neck pain with pain on movement and moving right upper extremity. Patient denies any chest pain, shortness of breath, slurred speech, facial droop, numbness test tingling, headache, or blurry vision. She denies any anterior neck pain, recent trauma, or any recent chiropractic work Related Data Home Medications ?Medication ?Instructions ?Recorded ?Confirmed vit no.133-ferrous 1 tab PO DAILY 04/05/22 06/16/22 fumarate 28 mg-folic acid 800 mcg tablet () Previous Rx's ?Medication ?Instructions ?Recorded ibuprofen 600 mg tablet 600 mg PO Q6H PRN pain #20 tabs 03/21/22 ibuprofen 600 mg tablet 600 mg PO Q6H PRN Pain, Moderate 05/13/22 #30 tabs cyclobenzaprine 10 mg tablet 10 mg PO BEDTIME PRN muscle spasm 06/11/24 7 days #7 tabs naproxen 500 mg tablet 500 mg PO BID PRN pain 7 days #14 06/11/24 tabs prednisone 20 mg tablet 40 mg (2 x 20 mg) PO DAILY 5 days 06/11/24 #10 tabs Allergies Allergy/AdvReac Type Severity Reaction Status Date / Time amoxicillin [AMOXICILLIN] Allergy Severe FACIAL AND Verified 06/11/24 12:38 THROAT SWELLING Penicillins [PENICILLINS] Allergy Intermediate SWELLING Verified 06/11/24 12:38 Review of Systems Review of Systems: right sided posterior neck pain radiating down Yes all other systems are reviewed and are negative [facility] Past Medical History Medical History Fracture of right lower leg Multiple sclerosis 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 Anxiety Surgical History History of ERCP Family History Family History Mother Cervical cancer Maternal Aunt Cervical cancer Paternal Grandfather Throat cancer Social History Social History Household Members: Significant Other and Other Household Members Other:: son Housing: Apartment Do you presently have visiting nurse or other home services: No Alcohol intake: current Alcohol intake frequency: does not drink Comment: sleeping Patient Tobacco Use Status: Never used Tobacco Advance Directives: No Advance Directives Information Provided: No Do you have a plan to hurt others: No Plan service: No Current occupational status: employed Physical Exam Vital Signs: Vital Signs: Last Vital Signs Temp 98.3 F 06/11/24 15:56 Pulse 83 06/11/24 15:56 Resp 16 06/11/24 15:56 BP 112/67 06/11/24 15:56 Pulse Ox 98 06/11/24 15:56 O2 Del Method Room Air 06/11/24 15:56 BMI result Body Mass Index 35.1 Const: General: cooperative, healthy appearing, comfortable, no acute distress, well developed, alert and awake Orientation/consciousness: patient oriented x3 HEENT: Head: Yes normal to inspection, Yes No palpable skull fracture present, Yes normocephalic, Yes atraumatic and Yes abrasion Eyes: General: appearance normal, both eyes and all related structures Neck: Neck: Yes normal visual inspection, Yes full ROM (Pain when turning head to the right.), Yes no lymphadenopathy, Yes no meningeal signs, Yes trachea midline, Yes supple, No anterior neck swelling, No bilateral parotid enlargement, No lymphadenopathy, No midline deformity, No positive Brudzinski's sign, No positive Kernig's sign and Yes tender (right posterior cervical) Chest: Chest palpation & inspection: normal inspection of the chest and normal palpation of entire chest wall Resp: Effort & Inspection: normal respiratory effort and able to speak in complete sentences Auscultation: clear to auscultation bilaterally Cardio: Jugular venous distension: no JVD Heart sounds: S1 normal heart sound present and S2 normal heart sound present GI: Inspection: Yes normal to inspection Palpation (GI): Soft to palpation, not firm, nontender, no guarding and not rigid : General: No CVA tenderness and Yes no CVA tenderness Back/Spine/Pelvis: Back: no CVA tenderness, No CVA tenderness and No back tenderness Skin: General skin exam: no rashes or lesions noted, elasticity normal and turgor normal Neuro: General: patient oriented x3, gait normal, tone normal, moves all extremities, Normal light touch and pain sensation, no meningeal signs, no focal motor deficits, CN's II-XI intact bilaterally and normal sensation to monofilament Extrem: Other: Right upper extremity normal. Negative for erythema, ecchymosis, crepitus, tenderness, or deformity. Motor/neuro/vascular exam intact General: Yes normal to inspection, Yes full ROM and Yes capillary refill normal Psych: Appearance: grossly normal, well kempt and not disheveled Course Course Course Narrative: This is a Rapid Medical Exam performed in triage by Ceci Judd PA-C. Full HPI, ROS and PE to be performed by primary ED provider. 24 yo M w/PMHx MS presenting to the ED c/o woke up with right sided neck pain and stiffness radiating to R shoulder. States unable to move neck. denies fever, trauma/injury, any manipulation/MVAs. denies taking any meds [employer] PE: No midline cervical spinous tenderness. Right-sided paraspinal tenderness. Neck stiffness appreciated. No meningeal signs Plan: pain control Medications Administered Discontinued Medications Generic Name Dose Route Start Last Admin Trade Name Freq PRN Reason Stop Dose Admin Cyclobenzaprine HCl 10 mg 06/11/24 13:27 06/11/24 13:41 Cyclobenzaprine Hcl 10 Mg Tablet PO 06/11/24 13:28 10 mg ONCE ONE Administration Ibuprofen 800 mg 06/11/24 13:27 06/11/24 13:41 Ibuprofen 800 Mg Tablet PO 06/11/24 13:28 800 mg ONCE ONE Administration Prednisone 60 mg 06/11/24 13:27 06/11/24 13:41 Prednisone 20 Mg Tablet PO 06/11/24 13:28 60 mg ONCE ONE Administration Medical Decision Making Medical Decision Making [facility] Narrative: Patient is year female presents to ED for right posterior neck pain radiating down right arm occurred suddenly this morning after waking up quickly and moving ahead then hitting cracking right posterior neck. Patient denies any anterior neck pain. Patient denies any weakness or tenderness on palpation. My upper extremity neuro exam intact. Was sent for cervical spine CT scan. Most likely muscular. Motrin prednisone steroid ordered. 3:43pm: Patient's CT scan came back normal. Patient feels better. Patient has complete range of motion of neck and upper extremity without pain. Patient will be discharged with steroids pain med and muscle relaxer. Patient explained worrisome signs and informed to return to the ED immediately. Not suspecting carotid vertebral artery dissection, meningitis, encephalitis, brain bleed, skull fracture, stroke, DVT, arterial occlusion, compartment syndrome, or any other life threatening etiology. Differential Diagnosis Differential Diagnoses: The differential diagnosis associated with the presentation includes (Torcillosis, Muscle spasm, Muscle Sprain) Admission/Observation Consideration of admission/observation: Escalation of care including admission/observation considered Independent Interpretation I performed an independent interpretation of an: CT Scan Radiology Impression Discussion of test interpretation with radiology: I have reviewed the radiologist's reading. Independent Historian Clinical information obtained from an independent historian. History obtained from or confirmed by: Other (Patient) External Record Review External record reviewed: Other (Prior visits) Prescription Management I considered prescription management with: Pain Medication Discharge Plan Discharge Clinical Impression: Torticollis, Muscle spasm Patient Disposition: Home, Self-Care Instructions: Muscle Spasm (ED), Neck Pain (ED) Additional Instructions: Recommend follow-up with your primary care provider. Symptoms mostly due to muscular pain. You will be discharged with steroids, muscle relaxer, and pain meds. Return to the ED immediately for slurred speech, facial droop, paralysis of extremities, severe neck pain, headache, dizziness, nausea, vomiting, chest pain, shortness of breath, or any other concerning symptoms. FINDINGS: No fracture or destructive process or alignment abnormality. No encroachment on the spinal canal. Prevertebral soft tissues are normal. CT/CT cervical spine wo IV con IMPRESSION: Negative exam. Fleischner guidelines were followed. Electronically signed by: Ubaldo Harper MD 06/11/2024 03:18 PM EDT Prescriptions: New prednisone 20 mg tablet 40 mg PO DAILY 5 Days Qty: 10 0RF cyclobenzaprine 10 mg tablet 10 mg PO BEDTIME PRN (Reason: muscle spasm) 7 Days Qty: 7 0RF Rx Instructions: side effect is drowsiness. Do not take at work or while driving. naproxen 500 mg tablet 500 mg PO BID PRN (Reason: pain) 7 Days Qty: 14 0RF No Action ibuprofen 600 mg tablet 600 mg PO Q6H PRN (Reason: pain) Qty: 20 0RF 28-800 mg-mcg Tablet 1 tab PO DAILY ibuprofen 600 mg tablet 600 mg PO Q6H PRN (Reason: Pain, Moderate) Qty: 30 0RF Stand Alone Forms: Work/School Release Interventions: ED Discharge Assessment Last Done: 06/11/24 15:56 Discharge Date/Time: 06/11/24 15:57 Print Language: Mongolian
[2024-06-11] MEDS: Ibuprofen 800 MG TABLET PO (13:41)
[2024-06-11] MEDS: predniSONE 20 MG TABLET 60 MG PO (13:41)
[2024-06-11] MEDS: Cyclobenzaprine HCl 10 MG TABLET PO (13:41)
[2024-06-11 14:27] VITALS: BP 112/67; PULSE 83; RESP 16; TEMP 36.8; O2SAT 98
[2024-06-11 15:56] VITALS: BP 112/67; PULSE 83; RESP 16; TEMP 36.8; O2SAT 98
== END 2024-06-11 15:57 | disposition home or self-care (01) ==
PROVIDERS: Emergency Provider Emergency Medicine; PCP Internal Medicine
DX: M43.6 Torticollis (principal); M62.838 Other muscle spasm
CPT/HCPCS: 72125; 99283; 99284

== ENCOUNTER 2024-06-18 11:08 | Outpatient (REF) | payer MEDICAID, SELFPAY ==
[2024-06-18 15:13] LABS: Iron 67 mcg/dL (30-160); Percent Iron Saturation 24 % (15-50); TSH reflex Free T4 1.92 uIU/mL (0.32-4.0); Total Iron Binding Capacity 280 mcg/dL (228-428); Unsaturated Iron Binding 213 ug/dL; Vitamin D 25-OH Total 41.2 ng/mL (>30)
[2024-06-18 15:28] LABS: Folate 13.7 ng/mL (> or = 4.0); Vitamin B12 399 pg/mL (200-900)
[2024-06-19 07:13] LABS: Prolactin 3.9 ng/mL
== END 2024-06-18 11:09 | disposition home or self-care (01) ==
LOC: HO.CHCLDS 11:08
PROVIDERS: Visit Provider Internal Medicine
DX: N92.6 Irregular menstruation, unspecified (principal)
CPT/HCPCS: 36415; 82306; 82607; 82746; 83540; 84146; 84443

== ENCOUNTER 2024-07-17 14:39 | Outpatient (REF) | payer MEDICAID, SELFPAY ==
[2024-07-17 17:57] LABS: HCG Quantitative 129 mIU/mL
[2024-07-18 18:44] LABS: Follicle Stimulating Hormone 0.9 mIU/mL; Lutenizing Hormone 0.3 mIU/mL
== END 2024-07-17 14:40 | disposition home or self-care (01) ==
LOC: HO.CHCLDS 14:39
PROVIDERS: Visit Provider Internal Medicine
DX: N92.6 Irregular menstruation, unspecified (principal)
CPT/HCPCS: 36415; 83001; 83002; 84702

== ENCOUNTER 2024-09-20 16:11 | Outpatient (REF) | payer MEDICAID, SELFPAY ==
--- OUTSIDE RECORDS SUMMARY | 2024-09-20 16:13 | XMS_ITS | Encounter Summary ---
Author Organization [employer] Address [address] [place] [address] Care Team Providers Care Community Engagement Leader Name Role Phone Antelmo Camp MD Primary Care Prov ider Reason for Visit * Reason Onset Date Comments Nurse Triage 08/29/2024 Encounter Details Date Type Department Care Team (Late st Contact Info) Description 08/29/2024 Telephone [facility] [address] [place] [id number] Antelmo Camp MD [address], [place] [phone] Nurse Triage Social History Tobacco Use Types Packs/Day Years Used Date Smoking Tobacco: Never Smokeless Tobacco: Never Alcohol Use Standard Drinks/Week Comments Not Currently 0 (1 standard drink = 0.6 oz pur e alcohol) Alcohol Answer Date Recorded How often do you have a drink containing alcohol ? 0 02/12/2024 How many drinks containing a lcohol do you have on a typical day when you are drinking? 0 02/12/2024 How often do you have six or more drinks on one occasion? 0 02/12/2024 Depression Answer Date Recorded Patient Health Questionnaire-9 Score 0 10/11/2023 Patient Health Questionnaire-9 Score 0 10/11/2023 Last PHQ-9: Questionnaire Data Not on file 0 10/11/2023 Housing Stability Answer Date Recorded What is your housing situation today? I have jerryalex wells 08/18/[address] you li ve. Do you have problems with any of the following? None of the above 08/18/2023 Food Insecurity Answer Date Recorded Within the past 12 months, y ou worried that your food would run out before you got money to buy more: Never True 06/01/2023 Within the past 12 months,th e food you bought just didn't last and you didn't have enough money to get more: Never True Transportation Answer Date Recorded In the past 12 months, has l ack of transportation kept you from medical appts, meetings, work or from getting things needed for daily living? No 06/01/2023 Utilities Answer Date Recorded In the past 12 months, has t he electric, gas, oil or water company threatened to shut off services in your home? No 06/01/2023 Depression Answer Date Recorded Patient Health Questionnaire-2 Score 0 10/11/2023 Comments No Sex and Gender Information Value Date Recorded Sex Assigned at Female 06/13/2022 10:36 AM EDT Legal Sex Female 10:36 AM EDT Gender Identity Female 06/13/2022 10:36 AM EDT Sexual Orientation Straight 06/13/2022 10 :36 AM EDT documented as of this encounter Miscellaneous Notes * Telephone Encounter - Delfina Donaldson RN - 08/29/2024 8:48 AM EST called pt to triage, spoke to pt. pt states 1 week duration of sore throat, mostly on the left side, mild fever, persistent congestion and cough. pt denies known exposures, rash, white spots, known high fevers, or other associated symptoms. pt states getting over covid and still having some persistent cough. pt requesting appt today and was given appt in [facility] at 1:20 today for exam. advised home care: rest, fluids, steam, humidifier, warm saltwater gargles, lozenges, OTC pain or fever reliever as needed and all back if worsening or new concerns. pt understands and agrees with plan. insurance verified. Protocol Used: Sore Throat (Adult) Protocol-Based Disposition: See in Office or Video Visit Today Video visit offer not recorded Positive Triage Question: * Patient wants to be seen * All higher-acuity triage questions were negative Care Advice Discussed: * Reassurance and Education - Sore Throat * Sore Throat * Soft Diet * Drink Plenty of Liquids * Pain and Fever Medicines * Pain and Fever Medicines - Extra Notes and Warnings * Reasons To Call Back - Sore throat is the main symptom and it lasts longer than 48 hours - Sore throat is mild but lasts longer than 4 days - Fever lasts longer than 3 days - You become worse * Telephone Encounter - William Alejandre - 08/29/2024 8:28 AM EST Symptom: Sore Throat Outcome: Schedule an appointment to be seen within 24 hours Reason: Caller denied all higher acuity questions The caller accepted this outcome. Contact pt at [phone] documented in this encounter Plan of Treatment Not on file documented as of this encounter Visit Diagnoses Not on filedocumented in this encounter Additional Health Concerns Assessment Noted Time PHQ-9 Depression Total Score: 0 10/11/19 24 2:44 PM EST documented as of this encounter Care Teams Community Engagement Leader Relationship Specialty Start Date End Date Antelmo Camp MD [address] [place] [phone] PCP - General Internal Medicine 12/03/19 documented as of this encounter
--- OUTSIDE RECORDS SUMMARY | 2024-09-20 16:13 | XMS_ITS | Clinical Summary ---
Author Organization [employer] Address [address] [facility] 7t [place] [address] Care Team Providers Care Jewelry Store Manager Name Role Phone Antelmo Camp MD Primary Care Prov ider Allergies Active Allergy Reactions Criticality Noted Date Comments Amoxicillin Anaphylaxis High 08/25/2022 Penicillin G Hives High 08/25/2022 Medications 27-1 MG tablet Take 1 tablet by mouth in the morning. 90 tablet 3 10/11/19 24 025 Active fluticasone (Flonase) 50 MCG/ACT nasal sprayIndicatio ns:Sinus pressure Administer 1 spray into each nostril Once per day. Shake gently. Before first use, prime pump. After use, clean tip and replace cap. 16 g 08/09/20 24 Active sodium chloride (Phillips Nasal Dahinda) 0.65 % nasal sprayIndicatio ns:Sinus pressure Administer 1 spray into each nostril if needed for congestion. 30 mL 12 08/09/20 24 025 Discontinued doxycycline (Vibra-Tabs) 100 MG tabletIndicati ons:Acute non-recurrent maxillary sinusitis Take 1 tablet (100 mg) by mouth 2 times daily for 5 days. Take with a full glass of water and do not lie down for at least 30 minutes after. 10 tablet 08/29/19 25 025 Active Problems Problem Noted Date Diagnosed Date Irregular menses 06/17/2024 Assessment & Plan (06/17/2024 1:18 PM EST): Will order hormone panel, will notify if any abnormal levels seen, refers has been having more profuse, longer menses period. Obesity (BMI 30-39.9) 02/12/2024 Assessment & Plan (02/12/2024 12:05 PM EDT): -Healthy diet and exercise teaching completed: Eat a variety of fruit and vegetables, whole grains such as whole-wheat flour, bulgur (cracked wheat), oatmeal, and brown rice. Intake protein from beans, nuts, fish, and lean meats. Eat low-fat or fat- free dairy products. Limit highly processed foods such as hot dogs, sandwich meat, etc. Engage in minimum of 150 min of moderate intensity exercise weekly -labs ordered to rule out metabolic causes Severe obesity (BMI 35.0-39.9) with comorbidity 05/08/2023 Multiple sclerosis 05/08/2023 Overview (05/08/2023): Demyelination Disease - managed by [facility] - last office visit was on 03/10/2021. Followed by [facility] Echogenic bowel of fetus on ultrasound 05/08/2023 Upper respiratory tract infection 05/08/2023 Assessment & Plan (05/08/2023 5:59 PM EDT): Rapid testing negative. Will send out to PCR, recommended to repeat in 48 hrs with home COVID test. Pt is carrying a 26 week gestation, hold prescription of meds. Discussed supportive care Annual physical exam 08/25/2022 Assessment & Plan (02/12/2024 12:09 PM EDT): -age appropriate screening and immunizations up to date (STI screening) -low cardiovascular risk -mental health screening negative -healthy social behaviors encouraged -anticipatory guidance reviewed: diet, exercise -will evaluate platelet levels given bruising complaint. Labs ordered -follow-up 1 yr for annual exam or as needed Assessment & Plan (08/25/2022 2:25 PM EST): Patient is S/p cholescystectomy. Physical examination was unremarkable, will order routine blood work Palpitation 08/25/2022 Assessment & Plan (08/25/2022 2:27 PM EST): Will order a holter est and will order a tsh Resolved Problems Problem Noted Date Diagnosed Date Resolved Date History of gestational diabetes 10/11/2023 02/12/2024 Assessment & Plan (10/11/2023 3:25 PM EST): Will follow up in office, new labs will be ordered on next appointment to evaluate status History of gestational hypertension 10/11/2023 02/12/2024 05/08/2023 02/12/2024 Encounters Date Type Department Care Team Description 09/20/2024 3:40 PM EST Office Visit [facility] [address] [place] [address] Palpitations (Primary Dx); related fatigue in first trimester 09/20/2024 Travel 09/20/2024 Telephone [facility] [address] [place] [phone] Antelmo Camp MD Nurse Triage 08/30/[address] [phone] Antelmo Camp MD Medication Question 08/29/2024 1:20 PM EST Office Visit [facility] [address] [place] [address] Irene Castillo MD Acute non-recurrent maxillary sinusitis (Primary Dx) 08/29/2024 Travel 08/29/[address] [phone] Antelmo Camp MD Nurse Triage 08/28/2024 Telephone [facility] [address] [place] [address] Antelmo Camp MD Nurse Triage 08/23/[address] [phone] Antelmo Camp MD Nurse Triage 08/09/2024 1:40 PM EST Office Visit [facility] [address] [place] [address] [phone] Diane Galaviz NP Sinus pressure (Primary Dx) 08/09/2024 Telephone [facility] [address] [place] [address] Antelmo Camp MD Nurse Triage 08/08/2024 Telephone [facility] [address] [place] [address] Antelmo Camp MD Nurse Triage 07/17/2024 Orders Only [facility] [address] [place] [address] Antelmo Camp MD 07/17/2024 Telephone [facility] [address] [place], [place] [phone] Antelmo Camp MD from Last 3 Months Immunizations Name Administration Dates Next Due Influenza injectable quadrivalent preservative f ree 06/27/2015 Tdap 06/05/2023,08/11/2021 Family History Medical History Relation Name Comments Bipolar disorder Mother Cervical cancer Mother Seizures Mother Cervical cancer Sister Relation Name Status Comments Mother Sister Social History Tobacco Use Types Packs/Day Years Used Date Smoking Tobacco: Never Smokeless Tobacco: Never Tobacco Cessation:Counseling Given: Not Answered Alcohol Use Standard Drinks/Week Comments Not Currently [...] is your housing situation today? I have jerry wells 08/18/[address] you [...] Orientation Straight 06/13/2022 10 :36 AM EDT Last Filed Vital Signs Vital Sign Reading Time Taken Comments Blood Pressure 126/82 09/20/2024 4:00 PM EST Pulse 93 09/20/2024 4:00 PM EST Temperature 36.8 ??C (98.2 ??F) 09/20/2024 4:00 PM ES T Respiratory Rate 18 09/20/2024 4:00 PM EST Oxygen Saturation 98% 09/20/2024 4:00 PM EST Inhaled Oxygen Concentration - - Weight 85.5 kg (188 lb 6.4 oz) 09/20/2024 4:00 P M EST Height 160 cm (5' 3 ) 09/20/2024 4:00 PM EST Body Mass Index 33.37 09/20/2024 4:00 PM EST Plan of Treatment Health Maintenance Due Date Last Done Comments Family Planning (PISQ) 2013 HPV Vaccines (1 - 3-dose series) 2013 Hepatitis B Vaccines (1 of 3 - 19+ 3-dose series) 2017 COVID-19 Vaccine (2023-2 5 season) 2024 Influenza Vaccine (#1) 2024 06/27/2015 Pap Smear 04/20/2024 04/20/2021 SDOH Screening 08/18/2024 08/18/2023 Depression Screening 10/11/2024 10/11/2023, 10/11/2023 Alcohol/Substance Use Screening 02/11/2025 02/12/2024 Tobacco Screening 02/11/2025 02/12/2024 Lipid Panel 02/11/2029 02/12/2024, 03/09/2022 DTaP/Tdap/Td Vaccines (3 - T d or Tdap) 06/05/2033 06/05/2023, 08/11/2021 Zoster Vaccines (1 of 2) 2048 RSV Patients and Patients Aged 60 years or older (1 - 1-dose 75+ series) 2073 HIV Screening Discontinued 02/12/2024 Hepatitis C Screening Completed 02/12/2024 HIB Vaccines Aged Out No longer eligi ble based on patient's age to complete this topic Hepatitis A Vaccines Aged Out No long er eligible based on patient's age to complete this topic IPV Vaccines Aged Out No longer eligi ble based on patient's age to complete this topic Meningococcal Vaccine Aged Out No ezio sally eligible based on patient's age to complete this topic Pneumococcal Vaccine: Pediatrics (0 to 5 Years) and At-Risk Patients (6 to 49) Years) Aged Out No longer eligible based on patient's age to complete this topic RSV under 20 months Aged Out No longe r eligible based on patient's age to complete this topic Rotavirus Vaccines Aged Out No longer eligible based on patient's age to complete this topic Procedures Procedure Name Priority Date/Time Associated Diagnosis Comments POC GRUBBS ID NOW STREP A Routine 08/29/2024 2:15 PM EST Acute non-recurrent maxillary sinusitis POCT RAPID COVID ANTIGEN Routine 08/29/2024 2:15 PM EST Acute non-recurrent maxillary sinusitis LH Routine 07/17/2024 2:41 PM EST FSH Routine 07/17/2024 2:41 PM EST HCG, TOTAL, QN Routine 07/17/2024 2:41 PM EST HEPATITIS C AB W/REFL TO HCV RNA, QN, PCR Routine 02/12/2024 12:07 PM EDT Encounter for health-related screening HIV 1/2 ANTIGEN/ANTIBODY, FOURTH GENERATION W/RFL Routine 02/12/2024 12:07 PM EDT Encounter for health-related screening LIPID PANEL, STANDARD Routine 02/12/2024 12:07 PM EDT Obesity (BMI 30-39.9) HM PAP/HPV Routine 04/20/2021 from Last 3 Months or Most Recently Relevant to Health Maintenance Results * POCT rapid strep A manually resulted (08/29/2024 2:15 PM EST) Pathologist [facility] Rapid Strep A Screen Negative Negative, None Detected QC Media Lot # Comment:[id number] Lot# Expiration Date Comment:10/11/2024 Swab 08/29/2024 2:15 PM EST Irene Castillo MD POINT OF CARE TEST ENTER/EDIT ORDERABLES Final Result * POCT Rapid COVID Ag (08/29/2024 2:15 PM EST) Pathologist [facility] Rapid COVID Ag Negative QC Media Lot # Comment:[id number] Lot# Expiration Date Comment:10/29/2025 Swab 08/29/2024 2:15 PM EST Irene Castillo MD POINT OF CARE TEST ENTER/EDIT ORDERABLES Final Result * hCG, Total, Quantitative (07/17/2024 2:41 PM EST) Pathologist [facility] HCG Quantitative 129 mIU/mL [facility] Comment:Weeks post LMP Appro ximate hCG(Last Menstrual Period) Range (mIU/ml)3 - 4 weeks 9 - 1304 - 5 weeks 75 - 2,6005 - 6 weeks 850 - 20,8006 - 7 weeks 4000 - 100,2007 - 12 weeks 11,500 - 289,16578 - 16 weeks 18,300 - 137,02450 - 29 weeks (2nd trimester) 1,400 - 53,87897 - 41 weeks (3rd trimester) 940 - 60,000The Grubbs B- hCG assay is used for the early detection ofpregnancy; it cannot be used to diagnose any conditionunrelated to . If a B-hCG level is not supportedby the clinical evidence, results should be confirmed by analternative method (qualitative urine hCG, for example). 07/17/2024 2:41 PM EST 07/17/2024 5:32 PM EST Antelmo Wright MD LAB BLOOD ORDERABL ES Final Result Performing Organization Address [facility] de Phone Number [facility] [address] [place] [address] [phone] * (ABNORMAL) LH (07/17/2024 2:41 PM EST) Lutenizing Hormone 0.3(A) mIU/mL [facility] Comment:Reference Range Foll icular Phase 1.9-12.5 Mid-Cycle Peak 8.7-76.3 Luteal Phase 0.5-16.9 Postmenopausal 10.0-54.7THIS TEST WAS PERFORMED AT:[employer] [address] [phone] NIEVES MD 07/17/2024 2:41 PM EST 07/17/2024 5:32 PM EST Antelmo Wright MD LAB BLOOD ORDERABL ES Final Result Performing Organization Address [facility] Co de Phone Number [facility] [address] [place] [phone] * (ABNORMAL) FSH (07/17/2024 2:41 PM EST) Follicle Stimulating Hormone 0.9(A) mIU/mL [facility] Comment:Reference Range Foll icular Phase 2.5-10.2 Mid-cycle Peak 3.1-17.7 Luteal Phase 1.5- 9.1 Postmenopausal 23.0-116.3THIS TEST WAS PERFORMED AT:[facility] [place] [id number] NIEVES MD 07/17/2024 2:41 PM EST 07/17/2024 5:32 PM EST us Antelmo Wright MD LAB BLOOD ORDERABL ES Final Result Performing Organization Address [facility]/ZIP Co de Phone Number [facility] [address] [place] [phone] * Hepatitis C Antibody with Reflex to HCV, RNA, Quantitative, Real-Time PCR (02/12/2024 12:07 PM EDT) Hepatitis C Antibody Nonreactive Nonreactive [facility] Comment:Antibodies to HCV no t detected; does not exclude early acuteHCV infection. Blood Venous blood specimen / Unknown 02/12/2024 12:07 PM EDT 02/12/2024 2:16 PM EDT us Diane Galaviz NP LAB BLOOD ORDERABLES Final Resu lt Performing Organization Address [facility]/ZIP Co de Phone Number [facility] [address] [place] [phone] * HIV-1/2 Antigen and Antibodies, Fourth Generation, with Reflexes (02/12/2024 12:07 PM EDT) HIV AB/AG Nonreactive Nonreactive [facility] Comment:HIV-1 p24 Ag and/or HIV-1/HIV-2 Ab not detected.A test result that is nonreactive does not exclude thepossibility of exposure to or infection with HIV-1 and/orHIV-2. Nonreactive results in this assay for individualswith prior exposure to HIV-1 and/or HIV-2 may be due toantigen and antibody levels that are below the limit ofdetection of this assay.The IRL Connectni[employer]reyner HIV Ag/Ab Combo assay result andsupplemental assay results should be interpreted inconjunction with the patient's clinical presentation,history and other laboratory results. If the results areinconsistent with clinical evidence, additional testing issuggested to confirm the result. Blood Venous blood specimen / Unknown 02/12/2024 12:07 PM EDT 02/12/2024 2:16 PM EDT Critical access hospital LAB BLOOD ORDERABLES Final Resu lt Performing Organization Address [facility] Co de Phone Number [facility] [address] [place] [phone] * (ABNORMAL) Lipid Panel, Standard (02/12/2024 12:07 PM EDT) Triglycerides 128 <150 mg/dL [facility] Comment:Desirable Triglyceri de: less than 150 mg/dLBorderline High Triglyceride 150-199 mg/dLHigh Triglyceride: 200-499 mg/dLVery High Triglyceride: greater than or equal to 5OO mg/dL Cholesterol 166 <200 mg/dL [facility] Comment:Desirable Cholestero l: less than 200 mg/dLBorderline High Cholesterol: 200-239 mg/dLHigh Cholesterol: greater than 239 mg/dL LDL Cholesterol Calculated 100(H) <100 mg/dL [facility] Comment:Desirable LDL: less than 100 mg/dLNear Optimal/Above Optimal LDL: 110- 129 mg/dLBorderline High LDL: 130-159 mg/dLHigh LDL: 160-189 mg/dLVery High LDL: greater than or equal to 190 mg/dL HDL Cholesterol 41 >40 mg/dL [facility] Comment:Desirable HDL: great er than 40 mg/dL Note: This HDL assay may give artificially low results in patients with liver disease. Blood Venous blood specimen / Unknown 02/12/2024 12:07 PM EDT 02/12/2024 2:16 PM EDT Diane Victor Hugo DECAL TRANSFERRER LAB BLOOD ORDERABLES Final Resu lt Performing Organization Address [facility]/ZIP Co de Phone Number [facility] [address] [place] [phone] * Hm Pap Smear (04/20/2021) Pap Negative for intraephithelial lesion or malignancy Negative for intraephithelial lesion or malignancy, Other Historical Provider HEALTH MAINTENANCE Final Result from Last 3 Months or Most Recently Relevant to Health Maintenance Insurance [employer] Care Teams Jewelry Store Manager Relationship Specialty Start Date End Date Antelmo Camp MD [address] [facility] [place] [phone] PCP - General Internal Medicine 12/03/19
--- OUTSIDE RECORDS SUMMARY | 2024-09-20 16:13 | XMS_ITS | Encounter Summary ---
Author Organization [employer] Address [address] [facility] 7t [place] [address] Care Team Providers Care Agricultural Extension Agent Name Role Phone Antelmo Camp MD Primary Care Prov ider Encounter Details Date Type Department Care Team ([facility] st Contact Info) Description 08/29/2024 1:20 PM EST Office Visit [facility] [address] [place], [place] [phone] Irene Castillo MD [address] [place] [address] Acute non-recurrent maxillary sinusitis (Primary Dx) Social History Tobacco Use Types Packs/Day Years [...] AM EDT documented as of this encounter Last Filed Vital Signs Vital Sign Reading Time Taken Comments Blood Pressure 124/77 08/29/2024 1:30 PM EST Pulse 98 08/29/2024 1:30 PM EST Temperature 37.4 ??C (99.3 ??F) 08/29/2024 1:30 PM ES T Respiratory Rate 20 08/29/2024 1:30 PM EST Oxygen Saturation 99% 08/29/2024 1:30 PM EST Inhaled Oxygen Concentration - - Weight 87.5 kg (193 lb) 08/29/2024 1:30 PM EST Height 160 cm (5' 3 ) 08/29/2024 1:30 PM EST Body Mass Index 34.19 08/29/2024 1:30 PM EST documented in this encounter Progress Notes * Irene Castillo MD - 08/29/2024 1:20 PM EST Subjective Patient ID: Nataly Mart is a 24 y.o. female who presents for sore throat. Nataly had COVID about 3 weeks ago and it was associated with a mild cough and sinus congestion. She was given a steroid nasal spray at urgent care and her sinus pressure improved, but then this weekshe started having more pain in her maxillary sinuses bilaterally .Pain is associated with thick green mucus and she is unable to blow it out. Has had low grade fever 99.3-99.4 at home. She reports being 10 weeks . She has a severe reaction to penicillin, having anaphylaxis as a very young child. Review of Systems Constitutional: Positive for fever. Negative for chills. HENT: Positive for congestion, postnasal drip, sinus pressure, sinus pain and sore throat. Negativefor ear discharge and ear pain. Eyes: Negative for visual disturbance. Respiratory: Positive for cough (slight, dry). Objective BP 124/77 (BP Location: Right arm, Patient Position: Sitting, BP Cuff Size: Adult) Pulse 98 Temp 99.3 ??F (37.4 ??C) (Oral) Resp 20 Ht 5' 3 (1.6 m) Wt 193 lb (87.5 kg) SpO2 99% BMI 34.19 kg/m?? Physical Exam Constitutional: Appearance: She is not toxic-appearing. HENT: Head: Normocephalic and atraumatic. Comments: Maxillary sinus tenderness bilaterally Right Ear: Tympanic membrane, ear canal and external ear normal. Left Ear: Tympanic membrane, ear canal and external ear normal. Nose: Nose normal. No congestion or rhinorrhea. Mouth/Throat: Mouth: Mucous membranes are moist. Pharynx: No oropharyngeal exudate or posterior oropharyngeal erythema. Cardiovascular: Rate and Rhythm: Normal rate and regular rhythm. Pulses: Normal pulses. Pulmonary: Effort: Pulmonary effort is normal. Breath sounds: Normal breath sounds. Musculoskeletal: Right lower leg: No edema. Left lower leg: No edema. Lymphadenopathy: Cervical: No cervical adenopathy. Skin: Capillary Refill: Capillary refill takes less than 2 seconds. Findings: Erythema (slight erythema bilateral medial cheeks) present. Neurological: Mental Status: She is alert. Cranial Nerves: No cranial nerve deficit. Psychiatric: Mood and Affect: Mood normal. Behavior: Behavior normal. Assessment/Plan Diagnoses and all orders for this visit: Acute non-recurrent maxillary sinusitis: Has failed about 1 week of treatment with intranasal steroid and with low-grade fever and sinus tenderness bilaterally. Discussed with [facility] pharmacist and consulted Up To Date re: most appropriate antibiotic to use in light of her 1st-term p regnancy and severe penicillin allergy. We agreed that doxycycline was the safer choice between doxycycine and levofloxacin. Explained to patient that doxycycline does pass to the placenta but that Stanislaw only giving her a very short course. Also gave her a neti-pot with one salt packet. Explained to buy distilled water at retail pharmacy as well as a bag of 100 salt packets. Encouraged her to use the rinse 2-3 times/day. Recommended she use the previously prescribed steroid nasal spray AFTER using the saline rinse. Told her to RTC if symptoms do no improve. - POCT Rapid COVID Ag--negative - POCT rapid strep A manually resulted--negative - doxycycline (Vibra-Tabs) 100 MG tablet; Take 1 tablet (100 mg) by mouth 2 times daily for 5 days.Take with a full glass of water and do not lie down for at least 30 minutes after. documented in this encounter Plan of Treatment Not on file documented as of this encounter Procedures Procedure Name Priority Date/Time Associated Diagnosis Comments POC GRUBBS ID NOW STREP A Routine 08/29/2024 2:15 PM EST Acute non-recurrent maxillary sinusitis POCT RAPID COVID ANTIGEN Routine 08/29/2024 2:15 PM EST Acute non-recurrent maxillary sinusitis documented in this encounter Results * POCT rapid strep A manually resulted (08/29/2024 2:15 PM EST) Pathologist [facility] Rapid Strep A Screen Negative Negative, None Detected QC Media Lot # Comment:[id number] Lot# Expiration Date Comment:10/11/2024 Swab 08/29/2024 2:15 PM EST Irene Castillo MD POINT OF CARE TEST ENTER/EDIT ORDERABLES Final Result * POCT Rapid COVID Ag (08/29/2024 2:15 PM EST) Pathologist [facility] Rapid COVID Ag Negative QC Media Lot # Comment:[id number] Lot# Expiration Date Comment:10/29/2025 Swab 08/29/2024 2:15 PM EST Irene Castillo MD POINT OF CARE TEST ENTER/EDIT ORDERABLES Final Result documented in this encounter Visit Diagnoses Diagnosis Acute non-recurrent maxillary sinusitis- Primary documented in this encounter Additional Health Concerns Assessment Noted Time PHQ-9 Depression Total Score: 0 10/11/19 24 2:44 PM EST documented as of this encounter Care Teams Agricultural Extension Agent Relationship Specialty Start Date End Date Antelmo Camp MD [address] [place] [phone] PCP - General Internal Medicine 12/03/19 documented as of this encounter
--- OUTSIDE RECORDS SUMMARY | 2024-09-20 16:13 | XMS_ITS | Encounter Summary ---
Author Organization [employer] Address [address] [facility] 7t [place] [address] Care Team Providers Care Business Operations Manager Name Role Phone Antelmo Camp MD Primary Care Prov ider Reason for Visit * Reason Onset Date Comments Medication Question 08/30/2024 Encounter Details Date Type Department Care Team ([facility] st Contact Info) Description 08/30/2024 Telephone [facility] [address] [place] [address] Antelmo Camp MD [address] [place], [place] [phone] Medication Question Social History Tobacco Use Types Packs/Day Years [...] encounter Miscellaneous Notes * Telephone Encounter - Yudi Rea RN - 08/30/2024 3:50 PM EST Patient requesting alternative antibiotic for sinus infection. She saw Dr. Castillo yesterday and was prescribed Doxy. Patients CAFETERIA OR LUNCHROOM CHECKER stated not to take Doxy due to . Routing to provider for review. Would you like to order an alternative to oxy? * Telephone Encounter - Slava Simpson - 08/30/2024 1:31 PM EST Tc from states was prescribed doxycycline (Vibra-Tabs) 100 MG tablet for sinus infection . OBGYNstates medication not good for her . Needing alternatives documented in this encounter Plan of Treatment Not on file documented as of this encounter Visit Diagnoses Not on filedocumented in this encounter Additional Health Concerns Assessment Noted Time PHQ-9 Depression Total Score: 0 10/11/19 24 2:44 PM EST documented as of this encounter Care Teams Business Operations Manager Relationship Specialty Start Date End Date Antelmo Camp MD [address] [place] [phone] PCP - General Internal Medicine 12/03/19 documented as of this encounter
--- OUTSIDE RECORDS SUMMARY | 2024-09-20 16:13 | XMS_ITS | Encounter Summary ---
Author Organization [employer] Address [address] [facility] [address] [place] [address] Care Team Providers Care Auto Mechanic Apprentice Name Role Phone Antelmo Camp MD Primary Care Prov ider Encounter Details Date Type Department Care Team (Latest Contact Info) Description 09/20/2024 Travel Social History Tobacco Use Types Packs/Day Years [...] AM EDT documented as of this encounter Plan of Treatment Not on file documented as of this encounter Visit Diagnoses Not on filedocumented in this encounter Additional Health Concerns Assessment Noted Time PHQ-9 Depression Total Score: 0 10/11/19 24 2:44 PM EST documented as of this encounter Care Teams Auto Mechanic Apprentice Relationship Specialty Start Date End Date Antelmo Camp MD [address] [place] [phone] PCP - General Internal Medicine 12/03/19 documented as of this encounter
--- OUTSIDE RECORDS SUMMARY | 2024-09-20 16:13 | XMS_ITS | Encounter Summary ---
Author Organization [employer] Address [address] [facility] 7t [place] [address] Care Team Providers Care Real Estate Rental Agent Name Role Phone Antelmo Camp MD Primary Care Prov ider Reason for Visit * Reason Onset Date Comments Nurse Triage 08/28/2024 Encounter Details Date Type Department Care Team ([facility] st Contact Info) Description 08/28/2024 Telephone [facility] CHC MED & PEDS [address] [place] [address] Antelmo Camp MD [address] [place], [place] [phone] Nurse Triage Social History Tobacco Use Types [...] encounter Miscellaneous Notes * Telephone Encounter - Abigail Rolle RN - 08/28/2024 10:56 AM EST Call returned to Nataly Mart to triage below. Reports testing positive for COVID-19 on 08/17/24with home kit. Per pt sx then resolved. Pt reports today having ST on left side. Mild swelling. No fever. Denies any congestion, ear pain or RIVAS. Pt advised of disposition, agrees to seek [facility] for examas no sick on site availability on teams at time of call. Reviewed [facility] operating hours and that wait times vary. Reviewed home care advise, ER precautions and reasons to call back. Also advised [facility] has SDC appt tomorrow, can call in the AM when schedule opens for scheduling. Protocol Used: Sore Throat (Adult) Protocol-Based Disposition: See in Office or Video Visit Today Video visit offer not recorded Positive Triage Question: * Severe sore throat pain * All higher-acuity triage questions were negative Care Advice Discussed: * Reassurance and Education - Sore Throat * Sore Throat * Soft Diet * Drink Plenty of Liquids * Reasons To Call Back - You become worse * Telephone Encounter - Lizbeth Bowles - 08/28/2024 10:30 AM EST Symptom: Sore Throat Outcome: Schedule an appointment to be seen within 24 hours Reason: Caller denied all higher acuity questions The caller accepted this outcome. documented in this encounter Plan of Treatment Not on file documented as of this encounter Visit Diagnoses Not on filedocumented in this encounter Additional Health Concerns Assessment Noted Time PHQ-9 Depression Total Score: 0 10/11/19 24 2:44 PM EST documented as of this encounter Care Teams Real Estate Rental Agent Relationship Specialty Start Date End Date Antelmo Camp MD [address] [place] [address] PCP - General Internal Medicine 12/03/19 documented as of this encounter
--- OUTSIDE RECORDS SUMMARY | 2024-09-20 16:13 | XMS_ITS | Encounter Summary ---
Author Organization [employer] Address [address] [facility] 7t [place] [address] Care Team Providers Care Identity Management Developer Name Role Phone Antelmo Camp MD Primary Care Prov ider Reason for Visit * Reason Onset Date Comments Nurse Triage 09/20/2024 Encounter Details Date Type Department Care Team (Late st Contact Info) Description 09/20/2024 Telephone [facility] MEDICINE [address] [place] [address] Antelmo Camp MD [address] [place], [place] [phone] Nurse Triage Social History Tobacco Use Types [...] Telephone Encounter - Abigail Rolle RN - 09/20/2024 11:45 AM EST Call returned to Nataly Mart to triage below. Reports having sx of weakness x 2 days. Per pt had JANELL sx 1 week ago. Pt believes may had been flu. Per pt having CP 2 days ago but may have been realted to anxiety. Pt also having intermittent palpitations 2 days ago. Denies any SOB, CP or palpitations today. Pt using only OTC vitamins. Pt advised of disposition, agrees to SDC today with SDC provider. Reviewed home care advise, ER precautions and reasons to call back. Protocol Used: Weakness (Generalized) and Fatigue (Adult) Protocol-Based Disposition: See in Office or Video Visit Today Future Appointments Date Time Provider Department Center 09/20/2024 3:40 PM [facility] SAME DAY [facility] Insurance verified as active per Real Time Eligibility in [facility]. Positive Triage Question: * Moderate weakness (e.g., interferes with work, school, normal activities) and persists > 3 days * All higher-acuity triage questions were negative * Telephone Encounter - Alexi Venkatesh - 09/20/2024 11:42 AM EST Symptom: Weakness Outcome: Schedule a same-day appointment or talk to a nurse or provider today Reason: Caller denied all higher acuity questions Please contact pt at [phone]. documented in this encounter Plan of Treatment Not on file documented as of this encounter Visit Diagnoses Not on filedocumented in this encounter Additional Health Concerns Assessment Noted Time PHQ-9 Depression Total Score: 0 10/11/19 24 2:44 PM EST documented as of this encounter Care Teams Identity Management Developer Relationship Specialty Start Date End Date Antelmo Camp MD [address] [place] [id number] PCP - General Internal Medicine 12/03/19 documented as of this encounter
--- OUTSIDE RECORDS SUMMARY | 2024-09-20 16:13 | XMS_ITS | Encounter Summary ---
Author Organization [employer] Address [address] 7[address] [place] [address] Care Team Providers Care Instructional Writer Name Role Phone Antelmo Camp MD Primary Care Prov ider Encounter Details Date Type Department Care Team (Latest Contact Info) Description 08/29/2024 Travel Social History Tobacco Use Types Packs/Day [...] documented as of this encounter Care Teams Instructional Writer Relationship Specialty Start Date End Date Antelmo Camp MD [address] [place] [address] PCP - General Internal Medicine 12/03/19 documented as of this encounter
--- OUTSIDE RECORDS SUMMARY | 2024-09-20 16:13 | XMS_ITS | Encounter Summary ---
Author Organization [employer] Address 75 [facility] 7t [place] [address] Care Team Providers Care Substation Operator Apprentice Name Role Phone Antelmo Camp MD Primary Care Prov ider Encounter Details Date Type Department Care Team (Late st Contact Info) Description 09/20/2024 3:40 PM EST Office Visit [facility] CHC MED & PEDS [address] [place] [address] Palpitations (Primary Dx); related fatigue in first trimester Social History Tobacco Use Types Packs/Day Years [...] Mass Index 33.37 09/20/2024 4:00 PM EST documented in this encounter Plan of Treatment Scheduled Orders Name Type Priority Associated Diagnoses Orde r Schedule CBC auto differential Lab Routine Palpitations related fatigue in first trimester Expected: 09/20/2024 (Approximate), Expires: 09/20/2025 TSH W/Reflex to FT4 Lab Routine Palpitations related fatigue in first trimester Expected: 09/20/2024 (Approximate), Expires: 09/20/2025 Comprehensive Metabolic Panel Lab Routine Palpitations related fatigue in first trimester Expected: 09/20/2024 (Approximate), Expires: 09/20/2025 documented as of this encounter Visit Diagnoses Diagnosis Palpitations- Primary related fatigue in first trimester documented in this encounter Additional Health Concerns Assessment Noted Time PHQ-9 Depression Total Score: 0 10/11/19 24 2:44 PM EST documented as of this encounter Care Teams Substation Operator Apprentice Relationship Specialty Start Date End Date Antelmo Camp MD [address] [place] [address] PCP - General Internal Medicine 12/03/19 documented as of this encounter
[2024-09-20 17:53] LABS: MANUAL DIFF FLAG NO
[2024-09-20 18:05] LABS: Basophils Percent Auto 0.2 % (0-2); Eosinophils Percent Auto 0.2 % (0-4); Hematocrit 33.2 % (37.0-47.0); Hemoglobin 11.7 g/dl (12.0-16.0); Imm Gran Abs Auto 0.01 X10*3/uL (0.00-0.03); Imm Gran Pct Auto 0.2 % (0.0-0.4); Lymphocytes Absolute Auto 1.5 X10*3/uL (1.2-4.9); Lymphocytes Percent Auto 23.5 % (20-40); Mean Corpuscular HGB Conc 35.2 g/dl (31.0-35.0); Mean Corpuscular Hemoglobin 30.2 pg (27.0-33.0); Mean Corpuscular Volume 85.8 fL (80.0-98.0); Monocytes Absolute Auto 0.3 X10*3/uL (0.1-1.2); Monocytes Percent Auto 4.2 % (2-11); Neutrophils Absolute Auto 4.5 x10*3/uL (2.0-8.3); Neutrophils Percent Auto 71.7 % (45-73); Platelet Count 201 X10*3/uL (160-400); Red Blood Count 3.87 X10*6/uL (4.20-5.50); Red Cell Distribution Width 13.2 % (11.0-16.0); White Blood Count 6.2 X10*3/uL (4.8-10.8)
[2024-09-20 18:20] LABS: Alanine Aminotransferase 48 U/L (0-31); Albumin Level 4.1 g/dL (3.5-5.0); Alkaline Phosphatase 59 U/L (39-117); Anion Gap 16 (12-20); Aspartate Amino Transferase 26 U/L (5-31); Bilirubin Total 0.5 mg/dL (0.0-1.0); Blood Urea Nitrogen 8 mg/dL (9-16); Carbon Dioxide 21 mmol/L (22-29); Chloride 104 mmol/L (96-108); Estimated Glomerular Filt Rate > 60; Glucose Random 96 mg/dL (60-115); Potassium 3.8 mmol/L (3.3-5.1); Sodium 137 mmol/L (135-145); Total Protein 7.3 g/dL (6.5-8.0)
[2024-09-20 18:38] LABS: TSH reflex Free T4 0.54 uIU/mL (0.32-4.0)
== END 2024-09-20 16:12 | disposition home or self-care (01) ==
LOC: HO.CHCLDS 16:11
PROVIDERS: Visit Provider Internal Medicine
DX: O26.811 Pregnancy related exhaustion and fatigue, first trimester (principal); O99.411 Diseases of the circulatory system complicating pregnancy, first trimester; R00.2 Palpitations
CPT/HCPCS: 36415; 80053; 84443; 85025

== ENCOUNTER 2024-12-11 16:00 | Outpatient (REF) | payer MEDICAID, SELFPAY ==
--- OUTSIDE RECORDS SUMMARY | 2024-12-11 16:41 | XMS_ITS ---
Author Organization [employer] Address [address] [place] [address] Care Team Providers Care Churner Name Role Phone Atnelmo Camp MD Primary Care Prov ider C3 CM Maternal [place] [facility] Status:Closed (Closed) Start date:11/22/2024 Enrollment reason:ADT Feed End date:12/06/2024 Close reason:Declined to Participate Overview HRM- Pt 21 weeks . Went to [facility] 11/21/24. DISCHARGED/TRANSFERRED TO A [facility] WITH A [facility]ANNED [facility] INPATIENT READMISSION Continued Care and Services Coordination
--- OUTSIDE RECORDS SUMMARY | 2024-12-11 16:42 | XMS_ITS | Encounter Summary ---
Author Organization [employer] Address 75 [facility] 7 [place] [address] Care Team Providers Care Caseworker Protective Services Name Role Phone Antelmo Camp MD Primary Care Prov ider Reason for Visit * Reason Onset Date Comments Nurse Triage 12/10/2024 Encounter Details Date Type Department Care Team (Late st Contact Info) Description 12/10/2024 Telephone [facility] MEDICINE [address] [place] [address] Antelmo Camp MD [address] [place] [address] Nurse Triage Social History Tobacco Use Types [...] Telephone Encounter - Abigail Rolle RN - 12/10/2024 11:50 AM EDT Call returned to Nataly Mart to triage below. Reports having abdominal pain x 1 day. Per pt pain intermittent. Pt having vomiting and diarrhea x 1 day. Also endorses RIVAS and temp of 101F. Pt denies any home kit for COVID-19. Exposed to flu positive person. Pt advised of disposition, declines [place]. Wants scheduled appt in [facility]> advised no appts today, offered AM SDC> wants PM appt. Advised to call again tomorrow afternoon. Reviewed [facility] operating hours and that wait times vary.Reviewed home care advise, ER precautions and reasons to call back. Protocol Used: Influenza (Flu) - Seasonal (Adult) Protocol-Based Disposition: See in Office or Video Visit Today or Tomorrow Video visit offer not recorded Positive Triage Question: * Patient wants to be seen * All higher-acuity triage questions were negative Care Advice Discussed: * Influenza - Symptoms * Influenza - How It is Spread * Influenza - General Care Advice * Reasons To Call Back - You have more questions * Telephone Encounter - Iraida Paolo Lui - 12/10/2024 11:12 AM EDT Symptom: Abdominal Pain - Female - Not Outcome: Schedule an urgent appointment (within 4 hours) or talk to a nurse or provider soon Reason: Fever The caller accepted this outcome. documented in this encounter Plan of Treatment Upcoming Encounters Date Type Department Care Team (Late st Contact Info) Description 01/31/2025 1:00 PM EDT Office Visit [facility] OPTOMETRY [address] [place] [address] Mika, Monika, OD [address] [place] [address] documented as of this encounter Visit Diagnoses Not on filedocumented in this encounter Additional Health Concerns Assessment Noted Time PHQ-9 Depression Total Score: 0 10/11/19 24 2:44 PM EST documented as of this encounter Care Teams Caseworker Protective Services Relationship Specialty Start Date End Date Antelmo Camp MD [address] [place] [id number] PCP - General Internal Medicine 12/03/19 documented as of this encounter
--- OUTSIDE RECORDS SUMMARY | 2024-12-11 16:42 | XMS_ITS | Encounter Summary ---
Author Organization [employer] Address 75 [facility] 7 [place] [address] Care Team Providers Care Well Tender Name Role Phone Antelmo Camp MD Primary Care Prov ider Reason for Referral * Imaging (Routine) - Closed Specialty Diagnoses / Procedures Referred By Contac t Referred To Contact Radiology Diagnoses Transaminitis Procedures US Abdomen Complete Olvin Longoria MD [address] [place] [address] Phone: tel: fax: [address] Phone: tel: fax: Referral ID Status Reason Start Date Expiration Date Visits Re quested Visits Authorized [id number] Closed 09/23/2024 09/23/2025 1 1 Encounter Details Date Type Department Care Team (Late st Contact Info) Description 09/23/2024 Orders Only [facility] CHC MED & PEDS [address] [place], [place] [phone] Olvin Longoria MD [address] [place] [address] Transaminitis (Primary Dx) Social History Tobacco Use Types [...] as of this encounter Plan of Treatment Upcoming Encounters Date Type Department Care Team (Late st Contact Info) Description 01/31/2025 1:00 PM EDT Office Visit [facility] OPT[facility]RY [address] [place], [place] [phone] Mika, Monika, OD [address] [place] [address] Scheduled Orders Name Type Priority Associated Diagnoses Orde r Schedule Hepatitis A,B,C Profile Lab Routine Transaminitis Expected: 09/23/2024, Expires: 09/23/2025 US Abdomen Complete Imaging Routine Transaminitis Expected: 09/23/2024, Expires: 09/23/2025 documented as of this encounter Visit Diagnoses Diagnosis Transaminitis- Primary Nonspecific elevation of levels of transaminase or lactic acid dehydrogenase (LDH) documented in this encounter Additional Health Concerns Assessment Noted Time PHQ-9 Depression Total Score: 0 10/11/19 24 2:44 PM EST documented as of this encounter Care Teams Well Tender Relationship Specialty Start Date End Date Antelmo Camp MD [address] [place] [id number] PCP - General Internal Medicine 12/03/19 documented as of this encounter
--- OUTSIDE RECORDS SUMMARY | 2024-12-11 16:42 | XMS_ITS | Encounter Summary ---
Author Organization [employer] Address [address] [facility] [address] 7[address] [place] [address] Care Team Providers Care Fire Control Technician Name Role Phone Antelmo Camp MD Primary Care Prov ider Encounter Details Date Type Department Care Team (Latest Contact Info) Description 12/11/2024 Travel Social History Tobacco Use Types Packs/Day [...] Description 01/31/2025 1:00 PM EDT Office Visit [facility] OPTOMETRY [address] [place] [address] Mika, Monika, OD [address] [place] [address] documented as of this encounter Visit Diagnoses Not on filedocumented in this encounter Additional Health Concerns Assessment Noted Time PHQ-9 Depression Total Score: 0 10/11/19 24 2:44 PM EST documented as of this encounter Care Teams Fire Control Technician Relationship Specialty Start Date End Date Antelmo Camp MD [address] [place] [address] PCP - General Internal Medicine 12/03/19 documented as of this encounter
--- OUTSIDE RECORDS SUMMARY | 2024-12-11 16:42 | XMS_ITS | Encounter Summary ---
Author Organization [employer] Address 75 [facility] 7t [place] [address] Care Team Providers Care Crown Blocker Name Role Phone Antelmo Camp MD Primary Care Prov ider Reason for Referral * Cardiology (Routine) - Pending Review Specialty Diagnoses / Procedures Referred By George weeks Referred To Contact Cardiology Diagnoses Irregular heart beats Procedures Holter monitor - 48 hour Silva Haq MD [address] [place] [address] Phone: tel: fax: Referral ID Status Reason Start Date Expiration Date V isits Requested Visits Authorized [id number] Pending Review 12/11/2024 12/11/2025 1 1 * Consultation (Routine) - Pending Review Specialty Diagnoses / Procedures Referred By George weeks Referred To Contact Cardiology Diagnoses Irregular heart beats Silva Haq MD [address] [place] [address] Phone: tel: fax: Referral ID Status Reason Start Date Expiration Date Visits Requested Visits Authorized [id number] Pending Review Specialty Services Required 12/11/2024 12/11/2025 1 1 Encounter Details Date Type Department Care Team (Latest Contact Info) Description 12/11/2024 3:00 PM EDT Office Visit [facility] CHC MED & PEDS [address] [place] [address] Silva Haq MD [address] [place] [address] Viral gastroenteritis (Primary Dx); Irregular heart beats Social History Tobacco Use Types Packs/Day Years [...] Sign Reading Time Taken Comments Blood Pressure 107/65 12/11/2024 3:15 PM EDT Pulse 87 12/11/2024 3:15 PM EDT Temperature 36.5 ??C (97.7 ??F) 12/11/2024 3:15 PM ED T Respiratory Rate 20 12/11/2024 3:15 PM EDT Oxygen Saturation 98% 12/11/2024 3:15 PM EDT Inhaled Oxygen Concentration - - Weight 89.4 kg (197 lb) 12/11/2024 3:15 PM EDT Height 160 cm (5' 3 ) 12/11/2024 3:15 PM EDT Body Mass Index 34.9 12/11/2024 3:15 PM EDT documented in this encounter Progress Notes * Silva Haq MD - 12/11/2024 3:00 PM EDT Subjective Patient ID: Nataly Mart is a 24 y.o. female who presents for No chief complaint on file.. Palpitations This is a recurrent problem. The problem has been waxing and waning. The symptoms are aggravated byunknown. Pertinent negatives include no chest pain, malaise/fatigue or shortness of breath. She hastried nothing for the symptoms. There are no known risk factors. Pt recently had viral Gastroenteritis and has been having a few bouts of vomiting Review of Systems Constitutional: Negative. Negative for malaise/fatigue. Respiratory: Negative. Negative for shortness of breath. Cardiovascular: Positive for palpitations. Negative for chest pain. Gastrointestinal: Negative. Genitourinary: Negative. Musculoskeletal: Negative for neck pain. Neurological: Negative for headaches. Objective Physical Exam Constitutional: Appearance: Normal appearance. Cardiovascular: Rate and Rhythm: Normal rate and regular rhythm. Pulses: Normal pulses. Heart sounds: Normal heart sounds. Pulmonary: Effort: Pulmonary effort is normal. Abdominal: General: Abdomen is flat. Neurological: Mental Status: She is alert. Assessment/Plan Diagnoses and all orders for this visit: Viral gastroenteritis Comments: Advised to increase fluid intake Labs ordered today Started on Omeprazole for 10 days Irregular heart beats Comments: previous EKG normal Referred to Cardio Holter monitor ordered today Orders: - Referral to Cardiology; Future - Holter monitor - 48 hour; Future - Basic Metabolic Panel; Future - Lipid Panel, Standard; Future - Hepatic Function Panel; Future - TSH with Reflex to Free T4; Future Other orders - Omeprazole 20 MG tablet delayed-release; Take 1 tablet (20 mg) by mouth Once per day for 10 days. documented in this encounter Plan of Treatment Upcoming Encounters Date Type Department Care Team (Late st Contact Info) Description 01/31/2025 1:00 PM EDT Office Visit [facility] OPTOMETRY [address] [place], [place] [phone] Mika, Monika, OD [address] [place] [address] Scheduled Orders Name Type Priority Associated Diagnoses Orde r Schedule Holter monitor - 48 hour Cardiac Services Routine Irregular heart beats Expected: 12/11/2024 (Approximate), Expires: 12/11/2026 Basic Metabolic Panel Lab Routine Irregular heart beats Expected: 12/11/2024 (Approximate), Expires: 12/11/2025 Lipid Panel, Standard Lab Routine Irregular heart beats Expected: 12/11/2024 (Approximate), Expires: 12/11/2025 Hepatic Function Panel Lab Routine Irregular heart beats Expected: 12/11/2024 (Approximate), Expires: 12/11/2025 TSH with Reflex to Free T4 Lab Routine Irregular heart beats Expected: 12/11/2024 (Approximate), Expires: 12/11/2025 Scheduled Referrals Name Type Priority Associated Diagnoses Order Schedule Referral to Cardiology Outpatient Referral Routine Irregular heart beats Expected: 12/11/2024 (Approximate), Expires: 12/11/2025 documented as of this encounter Visit Diagnoses Diagnosis Viral gastroenteritis- Primary Intestinal infection due to other organism, NEC Irregular heart beats documented in this encounter Additional Health Concerns Assessment Noted Time PHQ-9 Depression Total Score: 0 10/11/19 24 2:44 PM EST documented as of this encounter Care Teams Crown Blocker Relationship Specialty Start Date End Date Antelmo Camp MD [address] [place] [address] PCP - General Internal Medicine 12/03/19 documented as of this encounter
--- OUTSIDE RECORDS SUMMARY | 2024-12-11 16:42 | XMS_ITS | Encounter Summary ---
Author Organization [employer] Address 75 [facility] 7 [place] [address] Care Team Providers Care Fence Erector Name Role Phone Antelmo Camp MD Primary Care Prov ider Reason for Visit * Reason Onset Date Comments Medication Question 08/30/2024 Encounter Details Date Type Department Care Team ([facility] st Contact Info) Description 08/30/2024 Telephone [facility] MEDICINE [address] [place] [address] Antelmo Camp MD [address] [place] [address] Medication Question Social History Tobacco Use Types [...] Castillo yesterday and was prescribed Doxy. Patients GUN FITTER stated not to take Doxy due to [...] Description 01/31/2025 1:00 PM EDT Office Visit [facility] OPTOMETRY [address] [place] [address] Mika, Monika, OD [address] [place] [address] documented as of this encounter Visit Diagnoses Not on filedocumented in this encounter Additional Health Concerns Assessment Noted Time PHQ-9 Depression Total Score: 0 10/11/19 24 2:44 PM EST documented as of this encounter Care Teams Fence Erector Relationship Specialty Start Date End Date Antelmo Camp MD [address] [place] [address] PCP - General Internal Medicine 12/03/19 documented as of this encounter
--- OUTSIDE RECORDS SUMMARY | 2024-12-11 16:42 | XMS_ITS | Encounter Summary ---
Author Organization [employer] Address 75 [facility] 7 [place] [address] Care Team Providers Care Motivational Speaker Name Role Phone Antelmo Camp MD Primary Care Prov ider Reason for Visit * Reason Onset Date Comments Nurse Triage 12/11/2024 Encounter Details Date Type Department Care Team (Late st Contact Info) Description 12/11/2024 Telephone [facility] MED[facility] [address] [place] [address] Antelmo Camp MD [address] [place] [address] Nurse Triage Social History Tobacco Use Types [...] encounter Miscellaneous Notes * Telephone Encounter - Shiloh Hameed RN - 12/11/2024 9:10 AM EDT Triage call Pt reports vomiting, diarrhea and fever of 101 for last 2 days. Symptoms are less severe today with no vomiting and diarrhea x1. Fever remains. Pt is 26 weeks . Pt reports a chestpressure with some irregular heart beat over the last 2 days as well. Pt reports drinking adequate liquids. [facility] today at 300pm. Insurance is verified as active prior to booking. Protocol Used: Vomiting (Adult) Care Advice Discussed: * Reassurance and Education * Clear Liquids * Reasons To Call Back - Vomiting lasts for more than 2 days (48 hours) - Diarrhea lasts more than 7 days - Signs of dehydration occur - You become worse * Telephone Encounter - William Alejandre - 12/11/2024 8:29 AM EDT Symptoms: Vomiting, Diarrhea, Fever Outcome: Schedule an urgent appointment (within 1 hour) or talk to a nurse or provider soon Reason: Caller denied all higher acuity questions The caller accepted this outcome. Contact pt at [phone] documented in this encounter Plan of Treatment Upcoming Encounters Date Type Department Care Team (Late st Contact Info) Description 01/31/2025 1:00 PM EDT Office Visit [facility] OPTOMETRY [address] [place] [address] Monika Brennan, OD [address] [place] [address] documented as of this encounter Visit Diagnoses Not on filedocumented in this encounter Additional Health Concerns Assessment Noted Time PHQ-9 Depression Total Score: 0 10/11/19 24 2:44 PM EST documented as of this encounter Care Teams Motivational Speaker Relationship Specialty Start Date End Date Antelmo Camp MD [address] [place] [address] PCP - General Internal Medicine 12/03/19 documented as of this encounter
--- OUTSIDE RECORDS SUMMARY | 2024-12-11 16:42 | XMS_ITS ---
Author Organization [employer] Address [address] [place] [address] Care Team Providers Care Heating And Cooling Technician Name Role Phone Antelmo Camp MD Primary Care Prov ider C3 CM High Risk Maternity Status:Closed (Closed) Start date:11/22/2024 Enrollment reason:ADT Feed End date:12/06/2024 Close reason:Declined to Participate Overview HRM- Pt 21 weeks . [place] [facility] [place]. DISCHARGED/TRANSFERRED TO A [facility] WITH A PLANNED [facility]UTE [facility] INPATIENT READMISSION Continued Care and Services Coordination
--- OUTSIDE RECORDS SUMMARY | 2024-12-11 16:42 | XMS_ITS | Encounter Summary ---
Author Organization [employer] Address 75 [facility]t [place] [address] Care Team Providers Care Line Assembler Name Role Phone Antelmo Camp MD Primary Care Prov ider Encounter Details Date Type Department Care Team (Late st Contact Info) Description 12/06/2024 Patient Outreach [facility] MEDICINE [address] [place] [address] Antelmo Camp MD [address] [place] [address] Social History Tobacco Use Types Packs/Day Years [...] Description 01/31/2025 1:00 PM EDT Office Visit [facility] OPTOMETRY [address] [place] [address] Monika Brennan, OD [address] [place] [address] documented as of this encounter Visit Diagnoses Not on filedocumented in this encounter Additional Health Concerns Assessment Noted Time PHQ-9 Depression Total Score: 0 10/11/19 24 2:44 PM EST documented as of this encounter Care Teams Line Assembler Relationship Specialty Start Date End Date Antelmo Camp MD [address] [place] [address] PCP - General Internal Medicine 12/03/19 documented as of this encounter
--- OUTSIDE RECORDS SUMMARY | 2024-12-11 16:42 | XMS_ITS | Encounter Summary ---
Author Organization [employer] Address 75 [facility] 7 [place] [address] Care Team Providers Care Personal Consultant Name Role Phone Antelmo Camp MD Primary Care Prov ider Reason for Visit * Reason Comments Care Coordination C3CM/OSEI [place] Outreach-Declined to particiapte Encounter Details Date Type Department Care Team (Latest Contact Info) Description 12/06/2024 Patient Outreach [facility] MEDICINE [address] [place] [address] Antelmo Camp MD [address] [place] [address] Care Coordination (NIKIA/OSEI [place] Outreach-Declined to particiapte) Social History Tobacco Use Types Packs/Day Years [...] your housing situation today? I have jerry wlels 08/18/[address] you li [...] AM EDT documented as of this encounter Progress Notes * Rick Knight - 12/06/2024 2:52 PM EDT CHW Rick Knight, placed [facility]bound [facility], [facility] offering CM/CHW program services as patient stratified on ADT for ED visit to [facility] on 11/21/2024. Patient's name and was confirmed. Program information provided to parent. Patient declined to participate. CHW reinforced direct contact information for any additional questions or concerns and extended clinic hours on Mondays and Wednesdays, and Walk-InUrgent Care Located in [facility]. Patient provided with after-hours line for [facility], , which offer night time triage service and option to transfer to senior communications engineer provider if needed. Patient v erbalizes understanding, and able to repeat back to newspaper writer. documented in this encounter Plan of Treatment Upcoming Encounters Date Type Department Care Team (Late st Contact Info) Description 01/31/2025 1:00 PM EDT Office Visit [facility] OPTOMETRY [address] [place], [place] [phone] Mika, Monika, OD [address] [place] [address] documented as of this encounter Visit Diagnoses Not on filedocumented in this encounter Additional Health Concerns Assessment Noted Time PHQ-9 Depression Total Score: 0 10/11/19 24 2:44 PM EST documented as of this encounter Care Teams Personal Consultant Relationship Specialty Start Date End Date Antelmo Camp MD [address] [place] [phone] PCP - General Internal Medicine 12/03/19 documented as of this encounter
--- OUTSIDE RECORDS SUMMARY | 2024-12-11 16:42 | XMS_ITS | Encounter Summary ---
Author Organization [employer] Address [address] [facility] [address] 7t [place] [address] Care Team Providers Care Lead Tinner Name Role Phone Antelmo Camp MD Primary Care Prov ider Encounter Details Date Type Department Care Team (Late st Contact Info) Description 12/06/2024 Patient Outreach [facility] MEDICINE [address] [place] [address] Antelmo Camp MD [address] [place] [address] Social History Tobacco Use Types Packs/Day Years [...] Description 01/31/2025 1:00 PM EDT Office Visit [facility] OPTOMETRY [address] [place] [address] Monika Brennan, OD [address] [place] [address] documented as of this encounter Visit Diagnoses Not on filedocumented in this encounter Additional Health Concerns Assessment Noted Time PHQ-9 Depression Total Score: 0 10/11/19 24 2:44 PM EST documented as of this encounter Care Teams Lead Tinner Relationship Specialty Start Date End Date Antelmo Camp MD [address] [place] [address] PCP - General Internal Medicine 12/03/19 documented as of this encounter
--- OUTSIDE RECORDS SUMMARY | 2024-12-11 16:42 | XMS_ITS | Clinical Summary ---
Author Organization [employer] Address [address] [facility] [address] 7t [place] [address] Care Team Providers Care Leather Drier Name Role Phone Antelmo Camp MD Primary Care Prov ider Allergies Active Allergy Reactions Criticality Noted Date Comments Amoxicillin Anaphylaxis High 08/25/2022 Penicillin G Hives High 08/25/2022 Medications fluticasone (Flonase) 50 MCG/ACT nasal sprayIndication s:Sinus pressure Administer 1 spray into each nostril Once per day. Shake gently. Before first use, prime pump. After use, clean tip and replace cap. 16 g 4 Active Vit-Fe Fumarate-FA (M- Plus) 27-1 MG tablet TAKE 1 TABLET BY MOUTH EVERY DAY IN THE MORNING 30 tablet 11 5 Active Omeprazole 20 MG tablet delayed-release Take 1 tablet (20 mg) by mouth Once per day for 10 days. 10 tablet 5 12/22/19 25 Active Active Problems Problem Noted Date Diagnosed Date [...] office visit was on 03/10/2021. Followed by [facility] Neuro Echogenic bowel of fetus on [...] Encounters Date Type Department Care Team Description 12/11/2024 3:00 PM EDT Office Visit [facility] [address] [place] [address] Silva Haq MD Viral gastroenteritis (Primary Dx); Irregular heart beats 12/11/2024 Travel 12/11/[address] [address] Antelmo Camp MD Nurse Triage 12/10/[address] [address] Antelmo Camp MD Nurse Triage 12/06/2024 Patient Outreach [address] [address] Antelmo Camp MD Care Coordination ([facility] NATASHA Stewart- ADT Outreach-Declined to particiapte) 12/06/2024 Patient Outreach [address] [address] Antelmo Camp MD 12/06/2024 Patient Outreach [address] [address] Antelmo Camp MD 12/06/2024 Patient Outreach [address] [address] Antelmo Camp MD 12/05/2024 Patient Outreach [address] [address] Antelmo Camp MD 11/25/2024 Patient Outreach [address] [address] Antelmo Camp MD 11/22/2024 Patient Outreach [address] [address] Antelmo Camp MD Care Coordination ([facility]/W Rick Knight, #1- ADT Outreach-LVM) 11/22/2024 Patient Outreach [address] [address] Antelmo Camp MD Care Coordination ([facility]/W Rick Knight, Chart Review) 11/22/2024 Patient Outreach [address] [address] Antelmo Camp MD Care Management ([facility] chart review) 11/22/2024 Patient Outreach [address] [address] Antelmo Camp MD 11/13/2024 3:00 PM EDT Office Visit [facility] [address] [place] [address] Olvin Longoria MD Viral gastroenteritis (Primary Dx) 11/13/2024 Travel 11/13/[address] [address] Shiloh Hameed RN 11/07/2024 1:30 PM EDT Telemedicine [facility] [address] [place] [address] Antelmo Camp MD Pain of both eyes (Primary Dx) 11/07/2024 Travel 11/06/2024 Telephone [facility] [address] [place] [address] Antelmo Camp MD chart prep 11/04/2024 Refill [facility] [address] [place] [address] Antelmo Camp MD 10/25/2024 Population Health Risk Score Community Care [facility] (C[facility]) Department [address] [place] [phone] Provider, Population Health Generic 10/22/2024 Telephone [facility] [address] [place] [address] Antelmo Camp MD 09/23/[address] [place] [address] Fransisca Villafana RN Results 09/23/2024 Orders Only [facility] [address] [place] [address] Olvin Longoria MD Transaminitis (Primary Dx) 09/20/2024 3:40 PM EST Office Visit [facility] [address] [place] [address] Olvni Longoria MD Palpitations (Primary Dx); related fatigue in first trimester; Acute URI 09/20/2024 Travel 09/20/2024 Telephone [facility] MEDICINE [address] [place] [address] Antelmo Camp MD Nurse Triage from Last 3 Months Immunizations Name Administration [...] Mass Index 34.9 12/11/2024 3:15 PM EDT Plan of Treatment Upcoming Encounters Date Type Department Care Team (Late st Contact Info) Description 01/31/2025 1:00 PM EDT Office Visit [facility] OPTOMETRY [address] [place] [address] Monika Brennan, OD [address] [place] [address] Health Maintenance Due Date Last Done Comments Family Planning (PISQ) 2013 HPV Vaccines (1 - 3-dose series) 2013 Hepatitis B Vaccines (1 of 3 - 19+ 3-dose series) 2017 COVID-19 Vaccine (1 - 2023-2 5 season) 2024 Influenza Vaccine (#1) 2024 06/27/2015 Pap Smear 04/20/2024 04/20/2021 SDOH Screening 08/18/2024 08/18/2023 Depression Screening 10/11/2024 10/11/2023, 10/11/2023 Alcohol/Substance Use Screening 02/11/2025 02/12/2024 Tobacco Screening 11/13/2025 11/13/2024 Lipid Panel 02/11/2029 02/12/2024, 03/09/2022 DTaP/Tdap/Td Vaccines [...] Procedure Name Priority Date/Time Associated Diagnosis Comments AMB REFERRAL TO OPHTHALMOLOGY STAT 11/26/2024 Pain of both eyes ECG 12-LEAD Routine 09/20/2024 4:36 PM EST Palpitations COMPREHENSIVE METABOLIC PANEL Routine 09/20/2024 4:13 PM EST Palpitations related fatigue in first trimester TSH W/REFLEX TO FT4 Routine 09/20/2024 4 :13 PM EST Palpitations related fatigue in first trimester CBC WITH AUTO DIFFERENTIAL Routine 09/20/2024 4:13 PM EST Palpitations related fatigue in first trimester HEPATITIS C AB W/REFL TO HCV RNA, QN, PCR Routine 02/12/2024 12:07 PM EDT Encounter for health-related screening HIV 1/2 ANTIGEN/ANTIBODY, FOURTH GENERATION W/RFL Routine 02/12/2024 12:07 PM EDT Encounter for health-related screening LIPID PANEL, STANDARD Routine 02/12/2024 12:07 PM EDT Obesity (BMI 30-39.9) HM PAP/HPV Routine 04/20/2021 from Last 3 Months or Most Recently Relevant to Health Maintenance Results * Referral to Ophthalmology (11/26/2024) us Antelmo Wright MD OUTPATIENT REFERRA L ORDERABLES Final Result * ECG 12 lead (09/20/2024 4:36 PM EST) Narrative Olvin Longoria MD - 09/20/2024 4:36 PM EST Heart rate 84 bpm. ??Pinon XX 3 degrees. ??Sinus rhythm. ??No sign of left atrial enlargement or right atrial enlargement. ??No sign of hypertrophy. ?? No ST elevation or ST depression. ??Normal EKG. us Olvin Longoria MD ECG ORDERABLES Final Resul t * TSH W/Reflex to FT4 (09/20/2024 4:13 PM EST) TSH reflex Free T4 0.54 0.32 - 4.0 uIU/mL [facility] Blood Venous blood specimen / Unknown 09/20/2024 4:13 PM EST 09/20/2024 5:50 PM EST us Olvin Longoria MD LAB BLOOD ORDERABLES Final Result [facility] [address] [place], [place] [phone] * (ABNORMAL) CBC auto differential (09/20/2024 4:13 PM EST) White Blood Count 6.2 4.8 - 10.8 X10*3/uL [facility] Red Blood Count 3.87(L) 4.20 - 5.50 X10*6/uL [facility] Hemoglobin 11.7(L) 12.0 - 16.0 g/dl [facility] Hematocrit 33.2(L) 37.0 - 47.0 % [facility] Mean Corpuscular Volume 85.8 80.0 - 98.0 fL [facility] Mean Corpuscular Hemoglobin 30.2 27.0 - 33.0 pg [facility] Mean Corpuscular HGB Conc 35.2(H) 31.0 - 35.0 g/dl [facility] Red Cell Distribution Width 13.2 11.0 - 16.0 % [facility] Platelet Count 201 160 - 400 X10*3/uL [facility] Mean Platelet Volume 10.0 9.4 - 12.3 fL [facility] Neutrophils Percent Auto 71.7 45 - 73 % [facility] Imm Gran Pct Auto 0.2 0.0 - 0.4 % [facility] Lymphocytes Percent Auto 23.5 20 - 40 % [facility] Monocytes Percent Auto 4.2 2 - 11 % [facility] Eosinophils Percent Auto 0.2 0 - 4 % [facility] Basophils Percent Auto 0.2 0 - 2 % [facility] NRBC Pct Auto 0.0 0.0 - 0.2 /100WBC [facility] Neutrophils Absolute Auto 4.5 2.0 - 8.3 x10*3/uL [facility] Imm Gran Abs Auto 0.01 0.00 - 0.03 X10*3/uL [facility] Lymphocytes Absolute Auto 1.5 1.2 - 4.9 X10*3/uL [facility] Monocytes Absolute Auto 0.3 0.1 - 1.2 X10*3/uL [facility] Eosinophils Absolute Auto 0.0 0.0 - 0.4 X10*3/uL [facility] Basophils Absolute Auto 0.0 0.0 - 0.2 X10*3/uL [facility] NRBC Abs Auto 0.000 0.0 - 0.012 X10*3/uL [facility] Blood Venous blood specimen / Unknown 09/20/2024 4:13 PM EST 09/20/2024 5:50 PM EST us Olvin Longoria MD LAB BLOOD ORDERABLES Final Result [facility] [address] [place] [address] [phone] * (ABNORMAL) Comprehensive Metabolic Panel (09/20/2024 4:13 PM EST) Sodium 137 135 - 145 mmol/L [facility] Potassium 3.8 3.3 - 5.1 mmol/L [facility] Chloride 104 96 - 108 mmol/L [facility] Carbon Dioxide 21(L) 22 - 29 mmol/L [facility] Anion Gap 16 12 - 20 [facility] Urea Nitrogen (BUN) 8(L) 9 - 16 mg/dL [facility] Creatinine, Serum 0.57 0.5 - 1.4 mg/dL [facility] Estimated Glomerular Filt Rate >60 [facility] Comment:Chronic Kidney Disea se: Estimated GFR < 60 mL/min/[id number] Kidney Disease: Estimated GFR < 15 mL/min/1.73m2 Glucose 96 60 - 115 mg/dL [facility] Calcium 9.0 8.4 - 10.2 mg/dL [facility] Bilirubin, Total 0.5 0.0 - 1.0 mg/dL [facility] Aspartate Amino Transferase 26 5 - 31 U/L [facility] Alanine Aminotransferase 48(H) 0 - 31 U/L [facility] Total Protein 7.3 6.5 - 8.0 g/dL [facility] Albumin Level 4.1 3.5 - 5.0 g/dL [facility] Alkaline Phosphatase 59 39 - 117 U/L [facility] Blood Venous blood specimen / Unknown 09/20/2024 4:13 PM EST 09/20/2024 5:50 PM EST us Olvin Longoria MD LAB BLOOD ORDERABLES Final Result Performing Organization Address [facility]/ZIP Co de Phone Number [facility] [address] [place] [phone] * Hepatitis C Antibody with Reflex to HCV, RNA, Quantitative, Real-Time PCR (02/12/2024 12:07 PM EDT) Hepatitis C Antibody Nonreactive Nonreactive [facility] Comment:Antibodies to HCV no t detected; does not exclude early acuteHCV infection. Blood Venous blood specimen / Unknown 02/12/2024 12:07 PM EDT 02/12/2024 2:16 PM EDT us Diane Galaviz NP LAB BLOOD ORDERABLES Final Resu lt Performing Organization Address [facility]/ZIP Co de Phone Number [facility] [address] [place] [phone] * HIV-1/2 Antigen and Antibodies, Fourth Generation, with Reflexes (02/12/2024 12:07 PM EDT) HIV AB/AG Nonreactive Nonreactive [facility] Comment:HIV-1 p24 Ag and/or HIV-1/HIV-2 Ab not detected.A test result that is nonreactive does not exclude thepossibility of exposure to or infection with HIV-1 and/orHIV-2. Nonreactive results in this assay for individualswith prior exposure to HIV-1 and/or HIV-2 may be due toantigen and antibody levels that are below the limit ofdetection of this assay.The [employer] HIV Ag/Ab Combo assay result andsupplemental assay results should be interpreted inconjunction with the patient's clinical presentation,history and other laboratory results. If the results areinconsistent with clinical evidence, additional testing issuggested to confirm the result. Blood Venous blood specimen / Unknown 02/12/2024 12:07 PM EDT 02/12/2024 2:16 PM EDT Diane Galaviz SHADE CLOTH FINISHER LAB BLOOD ORDERABLES Final Resu lt [facility] [address] [place] [address] [phone] * (ABNORMAL) Lipid Panel, Standard (02/12/2024 12:07 PM EDT) Triglycerides 128 <150 mg/dL [facility] Comment:Desirable Triglyceri de: less than 150 mg/dLBorderline High Triglyceride 150-199 mg/dLHigh Triglyceride: 200-499 mg/dLVery High Triglyceride: greater than or equal to 5OO mg/dL Cholesterol 166 <200 mg/dL [facility] Comment:Desirable Cholestero l: less than 200 mg/dLBorderline High Cholesterol: 200-239 mg/dLHigh Cholesterol: greater than 239 mg/dL LDL Cholesterol Calculated 100(H) <100 mg/dL [facility] Comment:Desirable LDL: less than 100 mg/dLNear Optimal/Above Optimal LDL: 110- 129 mg/dLBorderline High LDL: 130-159 mg/dLHigh LDL: 160-189 mg/dLVery High LDL: greater than or equal to 190 mg/dL HDL Cholesterol 41 >40 mg/dL [facility] Comment:Desirable HDL: great er than 40 mg/dL Note: This HDL assay may give artificially low results in patients with liver disease. Blood Venous blood specimen / Unknown 02/12/2024 12:07 PM EDT 02/12/2024 2:16 PM EDT Diane Galaviz [employer]ADE [employer]OTH FINISHER LAB BLOOD ORDERABLES Final Resu lt [facility] [address] [place] [address] [phone] * Hm Pap Smear (04/20/2021) Pap Negative for intraephithelial lesion or malignancy Negative for intraephithelial lesion or malignancy, Other Historical Provider MD HEALTH MAINTENANCE Final Result from Last 3 Months or Most Recently Relevant to Health Maintenance Insurance [employer] Care Teams Leather Drier Relationship Specialty Start Date End Date Antelmo Camp MD [address] [place] [phone] PCP - General Internal Medicine 12/03/19
--- OUTSIDE RECORDS SUMMARY | 2024-12-11 16:42 | XMS_ITS | Encounter Summary ---
Author Organization [employer] Address [address] [facility] [address] [place] [address] Care Team Providers Care Religious Educator Name Role Phone Antelmo Camp MD Primary Care Prov ider Encounter Details Date Type Department Care Team (Late st Contact Info) Description 12/06/2024 Patient Outreach [facility] [address] [place] [address] Antelmo Camp MD [address] [place] [address] Social History Tobacco Use Types Packs/Day Years [...] Description 01/31/2025 1:00 PM EDT Office Visit [facility] OPTOMETRY [address] [place] [address] Monika Brennan, OD [address] [place] [address] documented as of this encounter Visit Diagnoses Not on filedocumented in this encounter Additional Health Concerns Assessment Noted Time PHQ-9 Depression Total Score: 0 10/11/19 24 2:44 PM EST documented as of this encounter Care Teams Religious Educator Relationship Specialty Start Date End Date Antemlo Camp MD [address] [place] [address] PCP - General Internal Medicine 12/03/19 documented as of this encounter
[2024-12-11 18:44] LABS: Alanine Aminotransferase 14 U/L (0-31); Albumin Level 3.6 g/dL (3.5-5.0); Alkaline Phosphatase 62 U/L (39-117); Anion Gap 13 (12-20); Aspartate Amino Transferase 18 U/L (5-31); Bilirubin Direct 0.2 mg/dL (0.0-0.5); Bilirubin Total 0.5 mg/dL (0.0-1.0); Blood Urea Nitrogen 7 mg/dL (9-16); Calcium 8.7 mg/dL (8.4-10.2); Carbon Dioxide 22 mmol/L (22-29); Chloride 106 mmol/L (96-108); Cholesterol 153 mg/dL (<200); Estimated Glomerular Filt Rate > 60; Glucose Random 78 mg/dL (60-115); HDL Cholesterol 56 mg/dL (>40); LDL Cholesterol Calculated 64 mg/dL (<100); Potassium 3.6 mmol/L (3.3-5.1); Sodium 137 mmol/L (135-145); Total Protein 6.6 g/dL (6.5-8.0); Triglycerides 166 mg/dL (<150)
[2024-12-11 18:47] LABS: TSH reflex Free T4 1.76 uIU/mL (0.32-4.0)
== END 2024-12-11 16:01 | disposition home or self-care (01) ==
LOC: HO.CHCLDS 16:00
PROVIDERS: Visit Provider Student in an Organized Health Care Education/Training Program
DX: I49.9 Cardiac arrhythmia, unspecified (principal)
CPT/HCPCS: 36415; 80048; 80061; 80076; 84443

== ENCOUNTER → 2024-12-19 13:05 | Outpatient (REF) | payer MEDICAID, SELFPAY ==
--- OUTSIDE RECORDS SUMMARY | 2024-12-19 14:14 | XMS_ITS | Encounter Summary ---
Author Organization [employer] Address 75 [facility] [address] [place] [address] Care Team Providers Care Field Sampling Technician Name Role Phone Antelmo Camp MD Primary Care Prov ider Reason for Visit * Reason Onset Date Comments Medication Question 08/30/2024 Encounter Details Date Type Department Care Team ([facility] st Contact Info) Description 08/30/2024 Telephone [facility] [address] [place] [address] Antelmo Camp MD [address] [place] [address] Medication Question Social History Tobacco Use Types [...] Castillo yesterday and was prescribed Doxy. 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
--- OUTSIDE RECORDS SUMMARY | 2024-12-19 14:14 | XMS_ITS | Clinical Summary ---
Author Organization [employer] Address [address] [place] [address] Care Team Providers Care Body Fitter Name Role Phone Antelmo Camp MD Primary [...] cap. 16 g 4 Active Vit-Fe Fumarate-FA (M-Sho Plus) 27-1 MG tablet TAKE 1 TABLET [...] office visit was on 03/10/2021. Followed by [facility] Neuro Echogenic bowel of fetus on [...] Encounters Date Type Department Care Team Description 12/12/2024 Telephone [facility] [address] [place] [address] Silva Haq MD Results 12/11/2024 3:00 PM EDT Office Visit [facility] [address] [place] [address] Silva Haq MD Viral gastroenteritis (Primary Dx); Irregular heart beats 12/11/2024 Travel 12/11/[address] [address] Antelmo Camp MD Nurse Triage 12/10/[address] [address] Antelmo Camp MD Nurse Triage 12/06/2024 Patient Outreach [address] [address] Antelmo Camp MD Care Coordination ([facility]/W NATASHA Stewart- ADT Outreach-Declined to particiapte) 12/06/2024 Patient Outreach [address] [address] Antelmo Camp MD 12/06/2024 Patient Outreach [address] [address] Antelmo Cmap MD 12/06/2024 Patient Outreach [address] [address] Antelmo Camp MD 12/05/2024 Patient Outreach [address] [address] Antelmo Camp MD 11/25/2024 Patient Outreach [address] [address] Antelmo Camp MD 11/22/2024 Patient Outreach [facility] [address] [place] [address] Antelmo Camp MD Care Coordination ([facility] Rick Knight, #1- ADT Outreach-[facility]) 11/22/2024 Patient Outreach [address] [address] Antelmo Camp MD Care Coordination ([facility] Rick Knight, Chart Review) 11/22/2024 Patient Outreach [address] [address] Antelmo Camp MD Care Management ([facility] chart review) 11/22/2024 Patient Outreach [address] [address] Antelmo Camp MD 11/13/2024 3:00 PM EDT Office Visit [facility] [address] [place] [address] Olvin Longoria MD Viral gastroenteritis (Primary Dx) 11/13/2024 Travel 11/13/[address] [address] Shiloh Hameed RN 11/07/2024 1:30 PM EDT Telemedicine [facility] [address] [place] [address] Antelmo Camp MD Pain of both eyes (Primary Dx) 11/07/2024 Travel 11/06/2024 Telephone [facility] [address] [place] [address] Antelmo Camp MD chart prep 11/04/2024 Refill [facility] [address] [place] [address] Antelmo Camp MD 10/25/2024 Population Health Risk Score Community Care [facility] () [address] [phone] Provider, Population Health Generic 10/22/2024 Telephone [facility] [address] [place] [address] Antelmo Camp MD 09/23/2024 Telephone [facility] [address] [facility] [place] [address] Fransisca Villafana RN Results 09/23/2024 Orders Only [facility] PEDS [address] [place] [address] Olvin Longoria MD Transaminitis (Primary Dx) from Last 3 Months Immunizations Name Administration [...] Description 01/31/2025 1:00 PM EDT Office Visit [facility] OPT[facility]ETRY [address] [place] [address] Mika, Monika, OD [address] [place] [address] Health Maintenance Due Date Last Done Comments Family Planning (PISQ) 2013 HPV Vaccines (1 - 3-dose series) 2013 Hepatitis B Vaccines (1 of 3 - 19+ 3-dose series) 2017 COVID-19 Vaccine ( - 2023-2 5 season) 2024 Influenza Vaccine (#1) 2024 06/27/2015 Pap Smear 04/20/2024 04/20/2021 SDOH Screening 08/18/2024 08/18/2023 Depression Screening 10/11/2024 10/11/2023, 10/11/2023 Alcohol/Substance Use Screening 02/11/2025 02/12/2024 Tobacco Screening 11/13/2025 11/13/2024 Lipid Panel 12/11/2029 12/11/2024, 02/12/2024, 03/09/2022 DTaP/Tdap/Td Vaccines (3 - T [...] Procedure Name Priority Date/Time Associated Diagnosis Comments TSH W/REFLEX TO FT4 Routine 12/11/2024 4 :05 PM EDT Irregular heart beats HEPATIC FUNCTION PANEL Routine 4:05 PM EDT Irregular heart beats LIPID PANEL, STANDARD Routine 12/11/2024 4:05 PM EDT Irregular heart beats BASIC METABOLIC PANEL Routine 12/11/2024 4:05 PM EDT Irregular heart beats AMB REFERRAL TO OPHTHALMOLOGY STAT 11/26/2024 Pain of both eyes HEPATITIS C AB W/REFL TO HCV RNA, QN, PCR Routine 02/12/2024 12:07 PM EDT Encounter for health-related screening HIV 1/2 ANTIGEN/ANTIBODY, FOURTH GENERATION W/RFL Routine 02/12/2024 12:07 PM EDT Encounter for health-related screening HM PAP/HPV Routine 04/20/2021 from Last 3 Months or Most Recently Relevant to Health Maintenance Results * TSH with Reflex to Free T4 (12/11/2024 4:05 PM EDT) TSH reflex Free T4 1.76 0.32 - 4.0 uIU/mL [facility] Blood Venous blood specimen / Unknown 12/11/2024 4:05 PM EDT 12/11/2024 5:51 PM EDT Silva Haq MD LAB BLOOD ORDERABLES Final Resul t Performing Organization Address City/[facility] Co de Phone Number [facility] [address] [place] [phone] * Hepatic Function Panel (12/11/2024 4:05 PM EDT) Bilirubin, Total 0.5 0.0 - 1.0 mg/dL [facility] Bilirubin, Direct 0.2 0.0 - 0.5 mg/dL [facility] Aspartate Amino Transferase 18 5 - 31 U/L [facility] Alanine Aminotransferase 14 0 - 31 U/L [facility] Total Protein 6.6 6.5 - 8.0 g/dL [facility] Albumin Level 3.6 3.5 - 5.0 g/dL [facility] Alkaline Phosphatase 62 39 - 117 U/L [facility] Blood Venous blood specimen / Unknown 12/11/2024 4:05 PM EDT 12/11/2024 5:51 PM EDT Silva Haq MD LAB BLOOD ORDERABLES Final Resul t Performing Organization Address [facility] de Phone Number [facility] [address] [place] [phone] [phone] * (ABNORMAL) Lipid Panel, Standard (12/11/2024 4:05 PM EDT) Triglycerides 166(H) <150 mg/dL [facility] Comment:Desirable Triglyceri de: less than 150 mg/dLBorderline High Triglyceride 150-199 mg/dLHigh Triglyceride: 200-499 mg/dLVery High Triglyceride: greater than or equal to 5OO mg/dL Cholesterol 153 <200 mg/dL [facility] Comment:Desirable Cholestero l: less than 200 mg/dLBorderline High Cholesterol: 200-239 mg/dLHigh Cholesterol: greater than 239 mg/dL LDL Cholesterol Calculated 64 <100 mg/dL [facility] Comment:Desirable LDL: less than 100 mg/dLNear Optimal/Above Optimal LDL: 110- 129 mg/dLBorderline High LDL: 130-159 mg/dLHigh LDL: 160-189 mg/dLVery High LDL: greater than or equal to 190 mg/dL HDL Cholesterol 56 >40 mg/dL [facility] Comment:Desirable HDL: great er than 40 mg/dL Note: This HDL assay may give artificially low results in patients with liver disease. Blood Venous blood specimen / Unknown 12/11/2024 4:05 PM EDT 12/11/2024 5:51 PM EDT Silva Haq MD LAB BLOOD ORDERABLES Final Resul t Performing Organization Address [facility] Co de Phone Number [facility] [address] [place] [address] [phone] * (ABNORMAL) Basic Metabolic Panel (12/11/2024 4:05 PM EDT) Sodium 137 135 - 145 mmol/L [facility] Potassium 3.6 3.3 - 5.1 mmol/L [facility] Chloride 106 96 - 108 mmol/L [facility] Carbon Dioxide 22 22 - 29 mmol/L [facility] Anion Gap 13 12 - 20 [facility] Urea Nitrogen (BUN) 7(L) 9 - 16 mg/dL [facility] Creatinine, Serum 0.63 0.5 - 1.4 mg/dL [facility] Estimated Glomerular Filt Rate >60 [facility] Comment:Chronic Kidney Disea se: Estimated GFR < 60 mL/min/1.37f0Faymqx Kidney Disease: Estimated GFR < 15 mL/min/1.73m2 Glucose 78 60 - 115 mg/dL [facility] Calcium 8.7 8.4 - 10.2 mg/dL [facility] Blood Venous blood specimen / Unknown 12/11/2024 4:05 PM EDT 12/11/2024 5:51 PM EDT us Silva Haq MD LAB BLOOD ORDERABLES Final Resul t Performing Organization Address [facility]/ZIP Co de Phone Number [facility] [address] [place] [phone] * Referral to Ophthalmology (11/26/2024) Antelmo Wright MD OUTPATIENT REFERRA L ORDERABLES Final Result * Hepatitis C Antibody with Reflex to HCV, RNA, Quantitative, Real-Time PCR (02/12/2024 12:07 PM EDT) Hepatitis C Antibody Nonreactive Nonreactive [facility] Comment:Antibodies to HCV no t detected; does not exclude early acuteHCV infection. Blood Venous blood specimen / Unknown 02/12/2024 12:07 PM EDT 02/12/2024 2:16 PM EDT Diane Galaviz NP LAB BLOOD ORDERABLES Final Resu lt Performing Organization Address [facility]/ZIP Co de Phone Number [facility] [address] [place] [phone] * HIV-1/2 Antigen and Antibodies, Fourth Generation, with Reflexes (02/12/2024 12:07 PM EDT) HIV AB/AG Nonreactive Nonreactive [facility] Comment:HIV-1 p24 Ag and/or HIV-1/HIV-2 Ab not detected.A test result that is nonreactive does not exclude thepossibility of exposure to or infection with HIV-1 and/orHIV-2. Nonreactive results in this assay for individualswith prior exposure to HIV-1 and/or HIV-2 may be due toantigen and antibody levels that are below the limit ofdetection of this assay.The [employer] HIV Ag/Ab Combo assay result andsupplemental assay results should be interpreted inconjunction with the patient's clinical presentation,history and other laboratory results. If the results areinconsistent with clinical evidence, additional testing issuggested to confirm the result. Blood Venous blood specimen / Unknown 02/12/2024 12:07 PM EDT 02/12/2024 2:16 PM EDT Diane Galaviz NP LAB BLOOD ORDERABLES Final Resu lt [facility] [address] [place] [phone] [phone] * Pap Smear (04/20/2021) Pap Negative for intraephithelial lesion or malignancy Negative for intraephithelial lesion or malignancy, Other Historical Provider HEALTH MAINTENANCE Final Result from Last 3 Months or Most Recently Relevant to Health Maintenance Insurance [employer] C[employer] Care Teams Body Fitter Relationship Specialty Start Date End Date Antelmo Camp MD [address] [place] [phone] PCP - General Internal Medicine 12/03/19
--- OUTSIDE RECORDS SUMMARY | 2024-12-19 14:14 | XMS_ITS | Encounter Summary ---
Author Organization [employer] Address [address] [facility] [address] [place] [address] Care Team Providers Care Computer Drafter Name Role Phone Antelmo Camp MD Primary Care Prov ider Reason for Referral * Imaging (Routine) - Closed Specialty Diagnoses / Procedures Referred By Contac t Referred To Contact Radiology Diagnoses Transaminitis Procedures US Abdomen Complete Olvin Longoria MD [address] [place] [address] Phone: tel: fax: [address] Phone: tel: fax: Referral ID Status Reason Start Date Expiration Date Visits Re quested Visits Authorized [id number] Closed 09/23/2024 09/23/2025 1 1 Encounter Details Date Type Department Care Team (Late st Contact Info) Description 09/23/2024 Orders Only [facility] [address] [place] [address] Olvin Longoria MD [address] [place] [address] Transaminitis (Primary Dx) Social History Tobacco Use [...] Description 01/31/2025 1:00 PM EDT Office Visit [facility] [address] [place] [address] Mika, Monika, OD [address] [place] [address] Scheduled Orders Name Type Priority Associated Diagnoses [...] documented as of this encounter Care Teams Computer Drafter Relationship Specialty Start Date End Date Antelmo Camp MD [address] [place] [phone] PCP - General Internal Medicine 12/03/19 documented as of this encounter
--- OUTSIDE RECORDS SUMMARY | 2024-12-19 14:14 | XMS_ITS | Encounter Summary ---
Author Organization [employer] Address [address] [facility] [address] [place] [address] Care Team Providers Care Grocery Store Clerk Name Role Phone Antelmo Camp MD Primary Care Prov ider Reason for Visit * Reason Onset Date Comments Nurse Triage 12/11/2024 Encounter Details Date Type Department Care Team (Late st Contact Info) Description 12/11/2024 Telephone [facility] [address] [place] [address] Antelmo Camp MD [address] [place] [address] Nurse Triage Social History Tobacco Use Types [...] as well. Pt reports drinking adequate liquids. [facility] today at 300pm. [...] caller accepted this outcome. Contact pt at [phone] documented in this encounter Plan of Treatment Upcoming Encounters Date Type Department Care Team (Late st Contact Info) Description 01/31/2025 1:00 PM EDT Office Visit [facility] OPT[facility]ET[facility] [address] [place], [place] [phone] Monika Brennan, OD [address] [place] [address] documented as of this encounter Visit Diagnoses Not on filedocumented in this encounter Additional Health Concerns Assessment Noted Time PHQ-9 Depression Total Score: 0 10/11/19 24 2:44 PM EST documented as of this encounter Care Teams Grocery Store Clerk Relationship Specialty Start Date End Date Antelmo Camp MD [address] [place] [address] PCP - General Internal Medicine 12/03/19 documented as of this encounter
== END ==
LOC: HO.CARD 13:05
PROVIDERS: PCP Internal Medicine; Visit Provider Student in an Organized Health Care Education/Training Program
DX: I49.9 Cardiac arrhythmia, unspecified (principal)
CPT/HCPCS: 93225

== ENCOUNTER 2025-04-29 14:05 | Outpatient (AMB) | payer MEDICAID, SELFPAY ==
[2025-04-29 14:07] VITALS: BP 109/61; PULSE 85; BMI 31.6
--- NOTE | 2025-04-29 14:07 | A.OFFVIS_ITS ---
Vital Signs 04/29/25 14:07 04/29/25 14:27 04/29/25 14:30 Height 5 ft 3 in Weight 178 lb 9.191 oz BMI 31.6 BP 109/61 117/74 115/70 Blood Pressure Location Lt brachial Lt brachial Lt brachial Position Sitting Sitting Standing Pulse 85 86 99 Intake Visit Reasons: PAINT GRINDER/Dr. Lawton/Irregular heart beat Intake Note: New patient irregular heart c/o dizziness and palpitations sister has POTS Fundraiser Required: No Allergies amoxicillin (AMOXICILLIN) Allergy (Severe, Verified 06/11/24 12:38) FACIAL AND THROAT SWELLING Penicillins (PENICILLINS) Allergy (Intermediate, Verified 06/11/24 12:38) SWELLING Medication List - Last Reconciled 04/29/[address] MD [id number] fumarate-FA 28-800 mg-mcg () 1 tab PO DAILY HPI Comments Details: Thank you for referring Desire in cardiology consultation today for symptoms of lightheadedness as well as rapid heart rate. Patient is a 25-year-old pleasant woman with no significant past medical history. Patient says for during a 2nd , she started noticing symptoms of palpitation lightheadedness when she would get up suddenly. She would notice her heart racing. This happened only with a 2nd . Need not doing the 1st. She has not had actual syncopal episode. However she notices when she gets up she could get lightheaded and she would get rapid heart rate. She is concerned about the symptoms as a sister has diagnose of POTS. She has not had any recent other illnesses. She did not have any significant issues with the including no preeclampsia or eclampsia. She says she has been maintaining adequate hydration and despite that feels his symptoms. However when she lays down at nighttime she can feel chest pain and notice with a pulse ox that are heart rate is in the 50s. Doing her delivery she was told on the monitor that she had extra systoles. She does not know exactly with the day with PACs or PVCs. She has not had any symptoms of shortness of breath, orthopnea, PND. She denies any exertional chest pain. She does have multiple sclerosis for which she is still not on any treatment [facility] Medical History Fracture of right lower leg Multiple sclerosis 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 Anxiety Surgical History History of ERCP Family History Mother Cervical cancer Maternal Aunt Cervical cancer Paternal Grandfather Throat cancer Social History Household Members: Significant Other and Other Household Members Other:: son Housing: Apartment Do you presently have visiting nurse or other home services: No Alcohol intake: current Alcohol intake frequency: does not drink Comment: sleeping Patient Tobacco Use Status: Never used Tobacco service: No Current occupational status: employed [employer] Const Denies chills, Denies daytime sleepiness, Denies fatigue, Denies fever(s), Denies frequent falls, Denies poor appetite, Denies snoring, Denies stops breathing during sleep, Denies weakness, Denies weight gain and Denies weight loss Eyes Denies loss of vision ENT Denies dizziness and Denies hearing loss Card Denies chest pain, Denies claudication, Denies leg edema, Denies lightheadedness, Denies palpitations, Denies dyspnea, Denies dyspnea on exertion and Denies orthopnea Resp Denies cough, Denies excessive phlegm production, Denies dyspnea, Denies dyspnea on exertion, Denies snoring and Denies wheezing GI Denies abdominal pain, Denies hematochezia, Denies change in bowel habits, Denies nausea and Denies vomiting Denies urinary frequency and Denies dysuria Musc Denies arthralgias, Denies muscle weakness and Denies numbness Skin/Breast Denies nail changes and Denies rash Neuro Denies Abnormal speech present, Denies dizziness, Denies frequent falls, Denies loss of vision, Denies memory loss, Denies numbness and Denies weakness Psych Denies depression and Denies memory loss Endo Denies fatigue and Denies palpitations Bryan/Lymph Reports easy bruising and Reports other (anemia) Aller/Immun Denies wheezing Physical Exam Vital Signs: Last Vital Signs Pulse 99 04/29/25 14:30 BP 115/70 04/29/25 14:30 BMI result Body Mass Index 31.6 Const General: cooperative, comfortable, no acute distress, alert, awake, Physically active and well groomed Nutritional Appearance: overweight Orientation/consciousness: patient oriented x3 Limitations: no limitations HEENT Head: Yes normocephalic and Yes atraumatic Neck Neck: Yes trachea midline, Yes supple and Yes no JVD Resp Effort & Inspection: normal respiratory effort Auscultation: clear to auscultation bilaterally Cardio Jugular venous distension: no JVD Palpation: normal PMI Rate: regular rate Rhythm: regular rhythm Heart sounds: S1 normal heart sound present, S2 normal heart sound present, no click, no gallops and no murmurs GI Auscultation: normal bowel sounds Skin General skin exam: no rashes or lesions noted Neuro General: patient oriented x3 and no focal motor deficits Speech: No Abnormal speech present Extrem General: Yes no clubbing, cyanosis or edema Office Procedures EKG Details: EKG shows normal sinus rhythm with normal EKG. 85533-[id number], Complete Assessment & Plan Assessment & Plan (1) Lightheadedness: Code(s): R42 - Dizziness and giddiness Category: Medical Plan: Symptoms of lightheadedness with elevated heart rate when she changes position in his highly suggestive of orthostatic tachycardia syndrome. Will need to investigate further for the same. Management was discussed and reason for her autonomic dysfunction he is unclear at this point time. Will suggest a head-up tilt-table test as well as an echocardiogram to rule out any structural heart disease and to evaluate for hemodynamic response and autonomic function with upright tilting. These tests will be performed in near future. Also suggest a Holter monitor for 2 weeks to assess for overall heart rate response. Further treatment based on the findings. Overall benign nature of POTS was discussed although can lead to significant symptoms. Limitation treatment options were discussed. Advised to start with adequate hydration in his salt intake to mitigate some of his symptoms. She understands and agrees. (2) Extrasystole: Code(s): I49.49 - Other premature depolarization Category: Medical Plan: Patient noted chest pain with slow heart rate at rest. This is most likely cohen ggestive of extra systoles. This was noted during her delivery time with patient monitor. Suggest a Holter monitor as above. Also suggest echocardiogram. Avoidance of stimulants was discussed. Will follow up after above-mentioned test. Thank you for allowing me to partake in her care Orders: Orders ECG 14 day holter monitor 04/29/25 R42 - Dizziness and giddiness CA echo transthoracic complete 04/29/25 R42 - Dizziness and giddiness ECG Tilt Table Test 04/29/25 R42 - Dizziness and giddiness Coding Level of Care Code New Pt Level 4 (09908) Complex EM visit Add On G2211 Diagnoses Lightheadedness R42 Extrasystole I49.49 CPT Codes EKG - CPT: 33051-Bguwdzhabbfdetqnx, Complete ([id number])
[2025-04-29 14:27] VITALS: BP 117/74; PULSE 86
[2025-04-29 14:30] VITALS: BP 115/70; PULSE 99
--- OUTSIDE RECORDS SUMMARY | 2025-04-29 17:53 | XMS_ITS | Encounter Summary ---
Author Organization [employer] Address [address] [facility] [address], [place] [address] Care Team Providers Care Hat And Cap Parts Cutter Hand Name Role Phone Antelmo Camp MD Primary Care Prov ider Reason for Visit * Reason Onset Date Comments Results 01/07/2025 Encounter Details Date Type Department Care Team ([facility] Contact Info) Description 01/07/2025 Telephone [facility] MED & PEDS [address] [place] [address] Antelmo Camp MD [address] [place] [address] Results Social History Tobacco Use Types Packs/Day Years [...] encounter Miscellaneous Notes * Telephone Encounter - Ellen Boone - 01/13/2025 2:21 PM EDT Telephone call from patient requesting Holter monitor results. Patient has called multiple times without receiving a response. Results are needed for upcoming SURFACING MACHINE OPERATOR appointment. [phone] * Telephone Encounter - Tamia Harris - 01/07/2025 3:58 PM EDT TC from pt requesting call back regarding Results. Type of results: Holter monitor Date when done: a couple weeks ago Facility: [facility] documented in this encounter Plan of Treatment Upcoming Encounters Date Type Department Care Team ([facility] st Contact Info) Description 06/09/2025 1:00 PM EDT Office Visit [facility] OPTOMETRY [address] [place] [address] Mika, Monika, OD [address] [place] [address] documented as of this encounter Visit Diagnoses Not on filedocumented in this encounter Additional Health Concerns Assessment Noted Time PHQ-9 Depression Total Score: 0 10/11/19 24 2:44 PM EST documented as of this encounter Care Teams Hat And Cap Parts Cutter Hand Relationship Specialty Start Date End Date Antelmo Camp MD [address] [place] [address] PCP - General Internal Medicine 12/03/19 documented as of this encounter
--- OUTSIDE RECORDS SUMMARY | 2025-04-29 17:53 | XMS_ITS | Encounter Summary ---
Author Organization [employer] Address [address] [address] Care Team Providers Care Asp Net Mvc Developer Name Role Phone Antelmo Camp MD Primary Care Prov ider Reason for Visit * Reason Onset Date Comments Nurse Triage 12/11/2024 Encounter Details Date Type Department Care Team (Late st Contact Info) Description 12/11/2024 Telephone [facility] [address] [place] [address] Antelmo Camp MD [address] [place] [address] Nurse Triage Social History Tobacco Use Types [...] as well. Pt reports drinking adequate liquids. [facility] CHC today at 300pm. Insurance is verified [...] caller accepted this outcome. Contact pt at [phone] documented in this encounter Plan of Treatment Upcoming Encounters Date Type Department Care Team (Late st Contact Info) Description 06/09/2025 1:00 PM EDT Office Visit [facility] OPTOMETRY [address] [place], [place] [phone] Monika Brennan, OD [address] [place] [address] documented as of this encounter Visit Diagnoses Not on filedocumented in this encounter Additional Health Concerns Assessment Noted Time PHQ-9 Depression Total Score: 0 10/11/19 24 2:44 PM EST documented as of this encounter Care Teams Asp Net Mvc Developer Relationship Specialty Start Date End Date Antelmo Camp MD [address] [place] [phone] PCP - General Internal Medicine 12/03/19 documented as of this encounter
--- OUTSIDE RECORDS SUMMARY | 2025-04-29 17:53 | XMS_ITS | Clinical Summary ---
Author Organization [employer] Address [address] [facility] 7t [place] [address] Care Team Providers Care Care Administrative Tech Name Role Phone Antelmo Camp MD Primary [...] day for 10 days. 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 Followed by [facility] Neuro Echogenic bowel of fetus on ultrasound [...] holter est and will order a tsh Estimated Date of Delivery Comme nts Yes 03/24/2025 Based on [employer] [facility], [facility] Resolved Problems Problem Noted Date Diagnosed Date Resolved Date History of gestational diabetes 10/11/2023 02/12/2024 Assessment & Plan (10/11/2023 3:25 PM EST): Will follow up in office, new labs will be ordered on next appointment to evaluate status History of gestational hypertension 10/11/2023 02/12/2024 05/08/2023 02/12/2024 Encounters Date Type Department Care Team Description 03/28/2025 Telephone [facility] MEDICINE [address] [place] [address] Antelmo Camp MD Nurse Triage 02/04/2025 Patient Outreach [facility] MEDICINE [address] [place] [address] Antelmo Camp MD from Last 3 Months Immunizations Immunization Administration Dates Next Due Influenza injectable quadrivalent [...] Recorded Patient Health Questionnaire-2 Score 0 10/11/2023 Estimated Date of Delivery Comme nts Yes 03/24/2025 Based on [facility], [facility] Sex and Gender Information Value Date Recorded Sex Assigned at Female 06/13/2022 10:36 AM EDT Legal Sex Female 10:36 AM EDT Gender Identity Female 06/13/2022 10:36 AM EDT Sexual Orientation Straight 06/13/2022 10 :36 AM EDT Last Filed Vital Signs Vital Sign Reading Time Taken Comments Blood Pressure 107/65 12/11/2024 3:15 PM EDT Pulse 87 12/11/2024 3:15 PM EDT Temperature 36.5 C (97.7 F) 12/11/2024 3:15 PM EDT Respiratory Rate 20 12/11/2024 3:15 PM EDT [...] Description 06/09/2025 1:00 PM EDT Office Visit [facility] OPTOMETRY [address] [place], [place] [phone] Monika Brennan, OD [address] [place] [address] Health Maintenance Due Date Last Done Comments Alcohol/Substance Use Screening 2010 Family Planning (PISQ) 2013 HPV Vaccines (1 - 3-dose series) 2013 Hepatitis B Vaccines (1 of 3 - 19+ 3-dose series) 2017 Pap Smear 04/20/2024 04/20/2021 SDOH Screening 08/18/2024 08/18/2023 Depression Screening 10/11/2024 10/11/2023, 10/11/2023 COVID-19 Vaccine (1 - 2023-2 5 season) 2025 Influenza Vaccine (#1) 2025 06/27/2015 Disability Screening 08/29/2025 08/29/2024 Tobacco Screening 11/13/2025 11/13/2024 Lipid Panel 12/11/2029 12/11/2024, 02/12/2024, 03/09/2022 DTaP/Tdap/Td Vaccines (4 - T d or Tdap) 12/26/2034 12/26/2024, 06/05/2023, 08/11/2021 Zoster Vaccines (1 of 2) 2048 HIV Screening Discontinued 02/12/2024 Hepatitis C Screening Completed 02/12/2024 HIB Vaccines Aged Out No longer eligi ble based on patient's age to complete this topic Hepatitis A Vaccines Aged Out No long er eligible based on patient's age to complete this topic IPV Vaccines Aged Out No longer eligi ble based on patient's age to complete this topic Meningococcal B Vaccine Aged Out No l onger eligible based on patient's age to complete this topic Meningococcal Vaccine Aged Out No ezio sally eligible based on patient's age to complete this topic Pneumococcal Vaccine: Pediatrics (0 to 5 Years) and At-Risk Patients (6 to 49) Years Aged Out No longer eligible based on patient's age to complete this topic RSV Patients and Patients Aged 60 years or older (No Doses Required) Completed RSV under 20 months Aged Out No longe r eligible based on patient's age to complete this topic Rotavirus Vaccines Aged Out No longer eligible based on patient's age to complete this topic Procedures Procedure Name Priority Date/Time Associated Diagnosis Comments LIPID PANEL, STANDARD Routine 12/11/2024 4:05 PM EDT Irregular heart beats HEPATITIS C AB W/REFL TO HCV RNA, QN, PCR Routine 02/12/2024 12:07 PM EDT Encounter for health-related screening HIV 1/2 ANTIGEN/ANTIBODY, FOURTH GENERATION W/RFL Routine 02/12/2024 12:07 PM EDT Encounter for health-related screening HM PAP/HPV Routine 04/20/2021 from Last 3 Months or Most Recently Relevant to Health Maintenance Results * (ABNORMAL) Lipid Panel, Standard (12/11/2024 4:05 PM EDT) Triglycerides 166(H) <150 mg/dL [facility] Comment:Desirable Triglyceri de: less than 150 mg/dLBorderline High Triglyceride 150-199 mg/dLHigh Triglyceride: 200-499 mg/dLVery High Triglyceride: greater than or equal to 5OO mg/dL Cholesterol 153 <200 mg/dL [facility] Comment:Desirable Cholestero l: less than 200 mg/dLBorderline High Cholesterol: 200-239 mg/dLHigh Cholesterol: greater than 239 mg/dL LDL Cholesterol Calculated 64 <100 mg/dL [facility] Comment:Desirable LDL: less than 100 mg/dLNear Optimal/Above Optimal LDL: 110- 129 mg/dLBorderline High LDL: 130-159 mg/dLHigh LDL: 160-189 mg/dLVery High LDL: greater than or equal to 190 mg/dL HDL Cholesterol 56 >40 mg/dL [facility] Comment:Desirable HDL: great er than 40 mg/dL Note: This HDL assay may give artificially low results in patients with liver disease. Blood Venous blood specimen / Unknown 12/11/2024 4:05 PM EDT 12/11/2024 5:51 PM EDT us Silva Haq MD LAB BLOOD ORDERABLES Final Resul t [facility] [address] [place] [address] [phone] * Hepatitis C Antibody with Reflex to HCV, RNA, Quantitative, Real-Time PCR (02/12/2024 12:07 PM EDT) Pathologist [facility] Hepatitis C Antibody Nonreactive Nonreactive [facility] Comment:Antibodies to HCV no t detected; does not exclude early acuteHCV infection. Blood Venous blood specimen / Unknown 02/12/2024 12:07 PM EDT 02/12/2024 2:16 PM EDT [facility] LAB BLOOD ORDERABLES Final Resu lt Performing Organization Address City/[facility]/ZIP Co de Phone Number [facility] [address] [place] [address] [phone] * HIV-1/2 Antigen and Antibodies, Fourth Generation, with Reflexes (02/12/2024 12:07 PM EDT) [facility] HIV AB/AG Nonreactive Nonreactive [facility] Comment:HIV-1 p24 Ag and/or HIV-1/HIV-2 Ab not detected.A test result that is nonreactive does not exclude thepossibility of exposure to or infection with HIV-1 and/orHIV-2. Nonreactive results in this assay for individualswith prior exposure to HIV-1 and/or HIV-2 may be due toantigen and antibody levels that are below the limit ofdetection of this assay.The [employer] HIV Ag/Ab Combo assay result andsupplemental assay results should be interpreted inconjunction with the patient's clinical presentation,history and other laboratory results. If the results areinconsistent with clinical evidence, additional testing issuggested to confirm the result. Blood Venous blood specimen / Unknown 02/12/2024 12:07 PM EDT 02/12/2024 2:16 PM EDT [facility] LAB BLOOD ORDERABLES Final Resu lt Performing Organization Address City/[facility]/ZIP Co de Phone Number [facility] [address] [place] [address] [phone] * Hm Pap Smear (04/20/2021) Pathologist [facility] Pap Negative for intraephithelial lesion or malignancy Negative for intraephithelial lesion or malignancy, Other us Historical Provider HEALTH MAINTENANCE Final Result from Last 3 Months or Most Recently Relevant to Health Maintenance Insurance [employer] Care Teams Care Administrative Tech Relationship Specialty Start Date End Date Antelmo Camp MD [address] [place] [phone] PCP - General Internal Medicine 12/03/19
--- OUTSIDE RECORDS SUMMARY | 2025-04-29 17:53 | XMS_ITS | Encounter Summary ---
Author Organization [employer] Address [address] [facility] [address] [address] Care Team Providers Care Banking Supervisor Name Role Phone Antelmo Camp MD Primary Care Prov ider Reason for Referral * Imaging (Routine) - Closed Specialty Diagnoses / Procedures Referred By Contac t Referred To Contact Radiology Diagnoses Transaminitis Procedures US Abdomen Complete Olvin Longoria MD [address] [place] [address] Phone: tel: fax: [address] Phone: tel: fax: Referral ID Status Reason Start Date Expiration Date Visits Re quested Visits Authorized [id number] Closed 09/23/2024 09/23/2025 1 1 Encounter Details Date Type Department Care Team (Late st Contact Info) Description 09/23/2024 Orders Only [facility] CHC MED & PEDS [address] [place] [address] Olvin Longoria MD [address] [place] [address] Transaminitis (Primary Dx) Social History Tobacco Use [...] Description 06/09/2025 1:00 PM EDT Office Visit [facility] OPTOMETRY [address] [place] [address] Mika, Monika, OD [address] [place] [address] Scheduled Orders Name Type Priority Associated Diagnoses [...] documented as of this encounter Care Teams Banking Supervisor Relationship Specialty Start Date End Date Antelmo Camp MD [address] [place] [phone] PCP - General Internal Medicine 12/03/19 documented as of this encounter
== END 2025-04-29 14:55 | disposition home or self-care (01) ==
LOC: HO.HCS 14:06
PROVIDERS: PCP Internal Medicine; Visit Provider Internal Medicine Cardiovascular Disease
DX: R42 Dizziness and giddiness (principal); I49.49 Other premature depolarization
CPT/HCPCS: 93010; 99204

== ENCOUNTER → 2025-04-29 14:05 | Outpatient (BNVA) | payer MEDICAID, SELFPAY | PROVIDERS: PCP Internal Medicine; Visit Provider Internal Medicine Cardiovascular Disease | DX: R42 Dizziness and giddiness (principal); I49.49 Other premature depolarization | CPT/HCPCS: 93005; 99202 ==

== ENCOUNTER → 2025-06-09 11:12 | Outpatient (REF) | payer MEDICAID, SELFPAY ==
--- NOTE | 2025-06-09 11:17 | CA_ITS ---
Transthoracic Echocardiogram Patient (Last, First, Middle): Natayl Mart J Gender: F Date of : 2000 Age: 25 Procedure Date: 06/09/2025 Procedure Type: Transthoracic Echocardiogram Location: OP Height: 160.02 cm Weight: 80.74 kg BSA: 1.84 m2 Heart Rate: bpm BP: 115 / 70 mmHg Quality Assurance/R&D Lab Technician: FLYNN Referring MD: Paramjit St MD Symptoms: R42 - Dizziness and giddiness Study Quality: Fair but adequate ECG Rhythm: Sinus Conclusions: - The left ventricular systolic function is normal. The calculated ejection fraction is 59% by biplane method. - No obvious valvular pathology seen on this study. Findings Left Ventricle Normal left ventricular cavity size. There is normal left ventricular wall thickness. The left ventricular systolic function is normal. The calculated ejection fraction is 59% by biplane method. There is no evidence of regional wall motion abnormalities. Diastolic function is normal for age. Right Ventricle Normal right ventricular cavity size and systolic function. Atria Both atria are normal in size. Aortic Valve The aortic valve was not well visualized. There is no aortic valve stenosis. There is no aortic valve regurgitation. Mitral Valve The mitral valve appears normal. There is no mitral valve regurgitation. There is no mitral valve stenosis. Pulmonic Valve There is trace pulmonic valve regurgitation. Tricuspid Valve There is trace tricuspid valve regurgitation. There is no evidence of pulmonary hypertension. Great Vessels The asc aorta and aortic arch are normal in size. Venous The inferior vena cava is normal in size and collapses greater than 50% with inspiration. Pericardium/Pleural There is no evidence of pericardial effusion. Prior Study Comparison No prior study available for comparison. Recommendations, Care & Conclusions No obvious valvular pathology seen on this study. Measurements 2D Linear Measurements IVSd: 0.86 0.6-0.9/0.6-1.0 cm LVIDd: 4.63 3.9-5.3/4.2-5.9 cm LVIDd Index: 2.52 2.4-3.2/2.2-3.1 cm/m2 LVIDs: 3.24 2.0-3.6 cm LVPWd: 0.90 0.7-1.1 cm LA Diam: 2.80 2.7-3.8/3.0-4.0 cm LAIDs Index: 1.52 1.5-2.3 cm/m2 LV Mass: 167.88 67-162/88-224 g LV Mass Index: 91.24 43-95/49-115 g/m2 LVOT Diam: 1.90 3.0+(-)1.3 cm 2D Systolic Function EF 4C: 57.50 >55% EF 2C: 61.70 >55% EF BiP: 59.20 >55% Mitral Valve MV Pk E: 0.71 MV PK A: 0.67 MV Decel Time: 164.00 E/A: 1.10 E'Lateral: 14.40 E'Medial: 9.14 E/E' Med: 7.70 E/E' Lat: 4.90 PHT: 48.00 MVA PHT: 4.58 Decel Vance: 4.31 Aortic Valve AoV Pk Didier: 1.36 AoV Mn Didier: 1.02 AoV VTI: 0.30 AoV Pk Grad: 7.00 Aov Mn Grad: 4.00 VINCENT Cont.VTI: 2.19 LVOT LVOT Pk Didier: 1.13 LVOT Mn Didier: 0.74 LVOT VTI: 0.23 LVOT Pk Grad: 5.00 LVOT Mn Grad: 3.00 LVOT Diam: 1.90 LVOT Area: 2.84 Diastolic Function MV Pk E: 0.71 MV Pk A: 0.67 E/A: 1.10 E'Medial: 9.14 E/E' Med: 7.70 E' Laterial: 14.40 E/E' Lat: 4.90 Right Ventricle TAPSE (mm): 22.10 TVS' Didier: 13.10 Tricuspid Valve TR Pk Didier: 2.14 TR Pk Grad: 18.00 RA Press: 3.00 RVSP: 21.00 Great Vessels Aorta Sinus of Valsalva: 2.65 2.0-3.[address] Ridge: 2.12 1.7-3.4 cm Ao Asc: 2.70 2.1-3.4 cm Ao Arch: 2.60 Pulmonary Veins Pulm Vein S/D 1.00 Updated in Other Vendor System with Status of Final Felipe Gilbert MD electronically signed on 06/10/2025 4:18:07 PM with status of Final
--- OUTSIDE RECORDS SUMMARY | 2025-06-09 14:18 | XMS_ITS | Clinical Summary ---
Author Organization [facility] Address [address] [place] [address] Phone Care Team Providers Care Image Editor Name Role Phone Unavailable Primary Care Provider Unavailabl e Social History Tobacco Use Types Packs/Day Years Used Date Smoking Tobacco: Never Assessed Comments Unknown Sex and Gender Information Value Date Recorded Sex Assigned at Not on file Legal Sex Female 2:05 PM EDT Gender Identity Not on file Sexual Orientation Not on file Plan of Treatment Upcoming Encounters Date Type Department Care Team (Late st Contact Info) Description 08/26/2025 1:45 PM EST Appointment [facility] Xray [address] [place] [address] Health Maintenance Due Date Last Done Comments DTaP,Tdap,and Td Vaccines (1 - Tdap) 2017 Hepatitis B Vaccines (1 of 3 - 19+ 3-dose series) 2017 Cervical Cancer Screening: P ap Smear 2019 Depression Screening 08/14/2024 HPV Vaccines (1 - 3-dose SCD M series) 2025 COVID-19 Vaccine ( - 2023-2 5 season) 2025 Influenza Vaccine (#1) 2025 HIV Screening 04/30/2025 Hepatitis C Screening 04/30/2025 Social Influencers of Health Screening 04/30/2025 RSV Immunization Adult Patie nts (1 - 1-dose 75+ series) 2073 HIB Vaccines Aged Out No longer eligi ble based on patient's age to complete this topic Hepatitis A Vaccines Aged Out No long er eligible based on patient's age to complete this topic IPV Vaccines Aged Out No longer eligi ble based on patient's age to complete this topic MMR Vaccines Aged Out No longer eligi ble based on patient's age to complete this topic Meningococcal ACWY Vaccine Aged Out N o longer eligible based on patient's age to complete this topic Meningococcal B Vaccine Aged Out No l onger eligible based on patient's age to complete this topic Pneumococcal Vaccine: Pediat rics (0 to 5 Years) and At-Risk Patients (6 to 49 Years) Aged Out No longer eligible b ased on patient's age to complete this topic RSV Immunization Patients Un cory 20 months Aged Out No longer eligible b ased on patient's age to complete this topic Varicella Vaccines Aged Out No longer eligible based on patient's age to complete this topic Insurance MEDICAID - [place]
--- OUTSIDE RECORDS SUMMARY | 2025-06-09 14:18 | XMS_ITS | Encounter Summary ---
Author Organization [employer] Address [address] [facility] [address], [place] [address] Care Team Providers Care Park Interpreter Name Role Phone Antelmo Camp MD Primary Care Prov ider Reason for Referral * Imaging (Routine) - Closed Specialty Diagnoses / Procedures Referred By Contac t Referred To Contact Radiology Diagnoses Transaminitis Procedures US Abdomen Complete Olvin Longoria MD [address] [place] [address] Phone: tel: fax: [address] Phone: tel: fax: Referral ID Status Reason Start Date Expiration Date Visits Re quested Visits Authorized [id number] Closed 09/23/2024 09/23/2025 1 1 Encounter Details Date Type Department Care Team (Late st Contact Info) Description 09/23/2024 Orders Only [facility] CHC MED & PEDS [address] [place] [address] Olvin Longoria MD [address] [place] [address] Transaminitis (Primary Dx) Social History Tobacco Use [...] Care Team (Late st Contact Info) Description 10/08/2025 3:30 PM EST Office Visit [facility] OPTOMETRY [address] [place] [address] Mika, Monika, OD [address] [place] [address] Scheduled Orders Name Type Priority Associated Diagnoses [...] documented as of this encounter Care Teams Park Interpreter Relationship Specialty Start Date End Date Antelmo Camp MD [address] [place] [phone] PCP - General Internal Medicine 12/03/19 documented as of this encounter
--- OUTSIDE RECORDS SUMMARY | 2025-06-09 14:18 | XMS_ITS | Encounter Summary ---
Author Organization [employer] Address [address] [facility] [address] [address] Care Team Providers Care Nutrition Services Aide Name Role Phone Antelmo Camp MD Primary Care Prov ider Reason for Visit * Reason Onset Date Comments Results 01/07/2025 Encounter Details Date Type Department Care Team ([facility] Contact Info) Description 01/07/2025 Telephone [facility] CHC MED & PEDS [address] [place] [address] Antelmo Camp MD [address] [place] [address] Results Social History Tobacco Use Types Packs/Day [...] a response. 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 [phone] * Telephone Encounter - Tamia Harris - 01/07/2025 3:58 PM EDT TC from pt requesting call back regarding Results. Type of results: Holter monitor Date when done: a couple weeks ago Facility: [facility] documented in this encounter Plan of Treatment Upcoming Encounters Date Type Department Care Team (Late st Contact Info) Description 10/08/2025 3:30 PM EST Office Visit [facility] OPTOMETRY [address] [place] [address] Monika Brennan, OD [address] [place] [address] documented as of this encounter Visit Diagnoses Not on filedocumented in this encounter Additional Health Concerns Assessment Noted Time PHQ-9 Depression Total Score: 0 10/11/19 24 2:44 PM EST documented as of this encounter Care Teams Nutrition Services Aide Relationship Specialty Start Date End Date Antelmo Camp MD [address] [place] [phone] PCP - General Internal Medicine 12/03/19 documented as of this encounter
--- OUTSIDE RECORDS SUMMARY | 2025-06-09 14:18 | XMS_ITS | Clinical Summary ---
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 Followed by [facility] Neuro Echogenic bowel of fetus on [...] Yes 03/24/2025 Based on [employer] TESFAYE, [facility] Resolved Problems Problem Noted Date Diagnosed Date Resolved Date History of gestational diabetes 10/11/2023 02/12/2024 Assessment & Plan (10/11/2023 3:25 PM EST): Will follow up in office, new labs will be ordered on next appointment to evaluate status History of gestational hypertension 10/11/2023 02/12/2024 05/08/2023 02/12/2024 Encounters Date Type Department Care Team Description 03/28/2025 Telephone [facility] MED[facility]INE [address] [place] [phone] Antelmo Camp MD Nurse Triage from Last 3 Months Immunizations Immunization Administration [...] Yes 03/24/2025 Based on [employer] TESFAYE, [facility] Sex and Gender Information Value Date [...] Description 10/08/2025 3:30 PM EST Office Visit [facility] OPTOMETRY [address] [place] [address] Mika, Monika, OD [address] [place] [address] Health Maintenance Due Date Last Done Comments Alcohol/Substance Use Screening 2010 Family Planning (PISQ) 2013 HPV Vaccines (1 - 3-dose series) 2013 Hepatitis B Vaccines (1 of 3 - 19+ 3-dose series) 2017 SDOH Screening 08/18/2024 08/18/2023 Depression Screening 10/11/2024 10/11/2023, 10/11/2023 COVID-19 Vaccine (1 - 2023-2 5 season) 2025 Influenza Vaccine (#1) 2025 06/27/2015 Disability Screening 08/29/2025 08/29/2024 Tobacco Screening 11/13/2025 11/13/2024 Pap Smear 09/06/2027 09/06/2024, 04/20/2021 Lipid Panel 12/11/2029 12/11/2024, 02/12/2024, 03/09/2022 DTaP/Tdap/Td [...] 12/11/2024 4:05 PM EDT Irregular heart beats HM PAP/HPV Routine 09/06/2024 HEPATITIS C AB W/REFL TO HCV RNA, QN, PCR Routine 02/12/2024 12:07 PM EDT Encounter for health-related screening HIV 1/2 ANTIGEN/ANTIBODY, FOURTH GENERATION W/RFL Routine 02/12/2024 12:07 PM EDT Encounter for health-related screening from Last 3 Months or Most Recently Relevant to Health Maintenance Results * (ABNORMAL) Lipid Panel, Standard (12/11/2024 4:05 PM EDT) Triglycerides 166(H) <150 mg/dL [facility] Comment:Desirable Triglyceri de: less than 150 mg/dLBorderline High Triglyceride 150-199 mg/dLHigh Triglyceride: 200-499 mg/dLVery High Triglyceride: greater than or equal to 5OO mg/dL Cholesterol 153 <200 mg/dL [facility] Comment:Desirable Cholestero l: less than 200 mg/dLBorderline High Cholesterol: 200-239 mg/dLHigh Cholesterol: greater than 239 mg/dL LDL Cholesterol Calculated 64 <100 mg/dL [facility] Comment:Desirable LDL: less than 100 mg/dLNear Optimal/Above Optimal LDL: 110- 129 mg/dLBorderline High LDL: 130-159 mg/dLHigh LDL: 160-189 mg/dLVery High LDL: greater than or equal to 190 mg/dL HDL Cholesterol 56 >40 mg/dL [facility] Comment:Desirable HDL: great er than 40 mg/dL Note: This HDL assay may give artificially low results in patients with liver disease. Blood Venous blood specimen / Unknown 12/11/2024 4:05 PM EDT 12/11/2024 5:51 PM EDT us Silva Haq MD LAB BLOOD ORDERABLES Final Resul t [facility] [address] [place] [address] [phone] * HM PAP/HPV (09/06/2024) Pap Smear 1. NILM 1. NILM HPV Not Detected Undetected, Indeterminat e, Quantitative , Not Detected Historical Provider HEALTH MAINTENANCE Final Result * Hepatitis C Antibody with Reflex to HCV, RNA, Quantitative, Real-Time PCR (02/12/2024 12:07 PM EDT) Hepatitis C Antibody Nonreactive Nonreactive [facility] Comment:Antibodies to HCV no t detected; does not exclude early acuteHCV infection. Blood Venous blood specimen / Unknown 02/12/2024 12:07 PM EDT 02/12/2024 2:16 PM EDT Diane Galaviz NP LAB BLOOD ORDERABLES Final Resu lt Performing Organization Address [facility]/ZIP Co de Phone Number [facility] [address] [place] [phone] * HIV-1/2 Antigen and Antibodies, Fourth Generation, with Reflexes (02/12/2024 12:07 PM EDT) HIV AB/AG Nonreactive Nonreactive [facility] Comment:HIV-1 p24 Ag and/or HIV-1/HIV-2 Ab not detected.A test result that is nonreactive does not exclude thepossibility of exposure to or infection with HIV-1 and/orHIV-2. Nonreactive results in this assay for individualswith prior exposure to HIV-1 and/or HIV-2 may be due toantigen and antibody levels that are below the limit ofdetection of this assay.The [employer] HIV Ag/Ab Combo assay result andsupplemental assay results should be interpreted inconjunction with the patient's clinical presentation,history and other laboratory results. If the results areinconsistent with clinical evidence, additional testing issuggested to confirm the result. Blood Venous blood specimen / Unknown 02/12/2024 12:07 PM EDT 02/12/2024 2:16 PM EDT Diane Galaviz NP LAB BLOOD ORDERABLES Final Resu lt Performing Organization Address City/[facility]/ZIP Co de Phone Number [facility] [address] [place] [address] [phone] from Last 3 Months or Most Recently Relevant to Health Maintenance Insurance [facility] C3 Care Teams Control Panel Assembler Relationship Specialty Start Date End Date Antelmo Camp MD [address] [place] [phone] PCP - General Internal Medicine 12/03/19
--- OUTSIDE RECORDS SUMMARY | 2025-06-09 14:18 | XMS_ITS | Encounter Summary ---
Author Organization [employer] Address [address] [address] Care Team Providers Care Field Tax Auditor Name Role Phone Antelmo Camp MD Primary Care Prov ider Reason for Visit * Reason Onset Date Comments Nurse Triage 12/11/2024 Encounter Details Date Type Department Care Team (Late st Contact Info) Description 12/11/2024 Telephone [facility] MEDICINE [address] [place] [address] Antelmo Camp MD [address] [place] [address] Nurse Triage Social History Tobacco Use Types [...] as well. Pt reports drinking adequate liquids. [facility] today at 300pm. Insurance is verified [...] caller accepted this outcome. Contact pt at [phone] documented in this encounter Plan of Treatment Upcoming Encounters Date Type Department Care Team (Late st Contact Info) Description 10/08/2025 3:30 PM EST Office Visit [facility] OPTOMETRY [address] [place], [place] [id number] Monika Brennan, OD [address] [place] [address] documented as of this encounter Visit Diagnoses Not on filedocumented in this encounter Additional Health Concerns Assessment Noted Time PHQ-9 Depression Total Score: 0 10/11/19 24 2:44 PM EST documented as of this encounter Care Teams Field Tax Auditor Relationship Specialty Start Date End Date Antelmo Camp MD [address] [place] [id number] PCP - General Internal Medicine 12/03/19 documented as of this encounter
== END ==
LOC: HO.CARD 11:12
PROVIDERS: PCP Internal Medicine; Visit Provider Internal Medicine Cardiovascular Disease
DX: I49.49 Other premature depolarization (principal); R42 Dizziness and giddiness
CPT/HCPCS: 93270; 93306

== ENCOUNTER → 2025-06-09 11:17 | Outpatient (BNV) | payer MEDICAID, SELFPAY | PROVIDERS: PCP Internal Medicine; Visit Provider Internal Medicine | DX: R42 Dizziness and giddiness (principal) | CPT/HCPCS: 93306 ==